=== PATIENT | female | born 1955 | race Caucasian/White ===

== ENCOUNTER 2019-03-13 14:53 | Observation (INO) | payer BC ==
[2019-03-13] MEDS ORDERED: SODIUM CHLORIDE 0.9% 500 ML 500 ML IV STA (15:08)
--- NOTE | 2019-03-13 15:19 | ED ---
General Adult HPI - General Chief complaint: Neuro Symptoms/Deficit Stated complaint: neuro deficit Time Seen by Provider: 03/13/19 15:00 Source: patient, RN notes reviewed, old records reviewed Mode of arrival: ambulatory Limitations: no limitations - History of Present Illness Initial comments: This is a 63-year-old female who presents to the emergency department stating while in her doctor's office she started having slurred speech and right arm we akness per patient states the symptoms lasted for 5 minutes and then seemed to resolve completely. Patient denies ever having similar symptoms in the past. Patient does state she has a past history of high blood pressure and high cholesterol and she is also a current smoker. Patient states she was at the office because she was being seen for a recent cough which has slightly improved over the last couple of days. Patient states she has had no fever today but she did have a fever. Days ago. Patient denies any chest pain or palpitations. Patient denies any shortness of breath currently. Patient denies any abdominal pain patient denies any nausea vomiting diarrhea. Patient denies light headedness or dizziness. - Related Data Home Medications Medication Instructions Recorded Confirmed Acetaminophen Tab [Tylenol Tab] 1,000 mg PO Q6H PRN 03/13/19 03/13/19 Estrogens, Conjugated [Premarin] 0.625 mg PO DAILY 03/13/19 03/13/19 Loratadine [Claritin] 10 mg PO HS PRN 03/13/19 03/13/19 Metoprolol Succinate [Toprol XL] 50 mg PO DAILY 03/13/19 03/13/19 Rosuvastatin Calcium [Crestor] 10 mg PO DAILY 03/13/19 03/13/19 Simethicone [Gas-X] 125 mg PO DAILY 03/13/19 03/13/19 Sucraid 8500unit/Ml 17,000 unit PO AC-BID PRN 03/13/19 03/13/19 Sucraid 8500unit/Ml 17,000 unit PO ACHS 03/13/19 03/13/19 Allergies Allergy/AdvReac Type Severity Reaction Status Date / Time No Known Allergies Allergy Verified 03/13/19 16:16 Review of Systems ROS Statement: Those systems with pertinent positive or pertinent negative responses have been documented in the HPI. ROS Other: All systems not noted in ROS Statement are negative. Past Medical History Past Medical History: COPD, Hyperlipidemia, Hypertension History of Any Multi-Drug Resistant Organisms: None Reported Additional Past Surgical History / Comment(s): neck fusion Past Psychological History: No Psychological Hx Reported Smoking Status: Current every day smoker Past Alcohol Use History: Occasional Past Drug Use History: None Reported General Exam - General Exam Comments Initial Comments: GENERAL: Patient is well-developed and well-nourished. Patient is nontoxic and well- hydrated and is in no acute distress ENT: Neck is soft and supple. No significant lymphadenopathy is noted. Oropharynx is clear. Moist mucous membranes. Neck has full range of motion without eliciting any pain. EYES: The sclera were anicteric and conjunctiva were pink and moist. Extraocular movements were intact and pupils were equal round and reactive to light. Eyelids were unremarkable. PULMONARY: Unlabored respirations. Good breath sounds bilaterally. No audible rales rhonchi or wheezing was noted. CARDIOVASCULAR: There is a regular rate and rhythm without any murmurs gallops or rubs. Femoral pulses are equal bilaterally ABDOMEN: Soft and nontender with normal bowel sounds. No palpable organomegaly was noted. There is no palpable pulsatile mass. SKIN: Skin is clear with no lesions or rashes and otherwise unremarkable. NEUROLOGIC: Patient is alert and oriented x3. Cranial nerves II through XII are grossly intact. Motor and sensory are also intact. Normal speech, volume and content. Symmetrical smile. Patient has an NIH is 0 MUSCULOSKELETAL: Normal extremities with adequate strength and full range of motion. No lower extremity swelling or edema. No calf tenderness. LYMPHATICS: No significant lymphadenopathy is noted PSYCHIATRIC: Normal psychiatric evaluation. Limitations: no limitations Course Vital Signs 03/13/19 14:57 Temperature 98.4 F Pulse Rate 64 Respiratory 18 Rate Blood Pressure 182/94 O2 Sat by Pulse 97 Oximetry Medical Decision Making - Medical Decision Making EKG shows a normal sinus rhythm at 63 bpm MD interval 114 QRS is 84 QT interval 440 QTC is 450. Patient's EKG shows no ST segment elevation or depression or T wave abnormalities are noted. CT of the brain shows postsurgical changes but no acute findings noted. CT angiogram of the head and neck show no acute changes. Chest x-ray shows no changes. Patient has had no symptoms well in the emergency department. I spoke with the [facility] hospitalist and they agreed to admit the patient admitted the patient I wrote admitting orders. - Lab Data Result diagrams: 03/13/19 15:26 03/13/19 15:26 Lab Results 03/13/19 03/13/19 03/13/19 Range/Units 15:26 15:26 15:26 WBC 7.8 (3.8-10.6) k/uL RBC 4.60 (3.80-5.40) m/uL Hgb 15.1 (11.4-16.0) gm/dL Hct 43.8 (34.0-46.0) % MCV 95.2 (80.0-100.0) fL MCH 32.8 (25.0-35.0) pg MCHC 34.4 (31.0-37.0) g/dL RDW 13.0 (11.5-15.5) % Plt Count 166 (150-450) k/uL Neutrophils % (Manual) 67 % Lymphocytes % (Manual) 29 % Monocytes % (Manual) 4 % Neutrophils # (Manual) 5.23 (1.3-7.7) k/uL Lymphocytes # (Manual) 2.26 (1.0-4.8) k/uL Monocytes # (Manual) 0.31 (0-1.0) k/uL Nucleated RBCs 0 (0-0) /100 WBC Manual Slide Review Performed PT 9.4 (9.0-12.0) sec INR 0.9 (<1.2) APTT 24.1 (22.0-30.0) sec Sodium 138 (137-145) mmol/L Potassium 4.1 (3.5-5.1) mmol/L Chloride 108 H (98-107) mmol/L Carbon Dioxide 24 (22-30) mmol/L Anion Gap 6 mmol/L BUN 12 (7-17) mg/dL Creatinine 0.73 (0.52-1.04) mg/dL Est GFR (CKD-EPI)AfAm >90 (>60 ml/min/1.73 sqM) Est GFR (CKD-EPI)NonAf 89 (>60 ml/min/1.73 sqM) Glucose 93 (74-99) mg/dL Calcium 8.9 (8.4-10.2) mg/dL Total Bilirubin 0.4 (0.2-1.3) mg/dL AST 21 (14-36) U/L ALT 22 (9-52) U/L Alkaline Phosphatase 82 (38-126) U/L Troponin I (0.000-0.034) ng/mL Total Protein 6.9 (6.3-8.2) g/dL Albumin 4.0 (3.5-5.0) g/dL 03/13/19 Range/Units 15:26 WBC (3.8-10.6) k/uL RBC (3.80-5.40) m/uL Hgb (11.4-16.0) gm/dL Hct (34.0-46.0) % MCV (80.0-100.0) fL MCH (25.0-35.0) pg MCHC (31.0-37.0) g/dL RDW (11.5-15.5) % Plt Count (150-450) k/uL Neutrophils % (Manual) % Lymphocytes % (Manual) % Monocytes % (Manual) % Neutrophils # (Manual) (1.3-7.7) k/uL Lymphocytes # (Manual) (1.0-4.8) k/uL Monocytes # (Manual) (0-1.0) k/uL Nucleated RBCs (0-0) /100 WBC Manual Slide Review PT (9.0-12.0) sec INR (<1.2) APTT (22.0-30.0) sec Sodium (137-145) mmol/L Potassium (3.5-5.1) mmol/L Chloride (98-107) mmol/L Carbon Dioxide (22-30) mmol/L Anion Gap mmol/L BUN (7-17) mg/dL Creatinine (0.52-1.04) mg/dL Est GFR (CKD-EPI)AfAm (>60 ml/min/1.73 sqM) Est GFR (CKD-EPI)NonAf (>60 ml/min/1.73 sqM) Glucose (74-99) mg/dL Calcium (8.4-10.2) mg/dL Total Bilirubin (0.2-1.3) mg/dL AST (14-36) U/L ALT (9-52) U/L Alkaline Phosphatase (38-126) U/L Troponin I <0.012 (0.000-0.034) ng/mL Total Protein (6.3-8.2) g/dL Albumin (3.5-5.0) g/dL Disposition Clinical Impression: Transient cerebral ischemia Disposition: ADMITTED IP TO THIS HOSP Referrals: Harika Cortez MD [Primary Care Provider] - 1-2 days Time of Disposition: 16:38
[2019-03-13 15:53] LABS: HCT 43.8 % (34.0-46.0); HGB 15.1 gm/dL (11.4-16.0); MCH 32.8 pg (25.0-35.0); MCHC 34.4 g/dL (31.0-37.0); MCV 95.2 fL (80.0-100.0); Mean Platelet Volume 7.5; Platelet Count 166 k/uL (150-450); WBC 7.8 k/uL (3.8-10.6)
[2019-03-13 15:57] LABS: ALT 22 U/L (9-52); AST 21 U/L (14-36); African American GFR (CKD) >90 (>60 ml/min/1.73 sqM); Alkaline Phosphatase 82 U/L (38-126); Anion Gap 6 mmol/L; Blood Urea Nitrogen 12 mg/dL (7-17); Calcium 8.9 mg/dL (8.4-10.2); Carbon Dioxide 24 mmol/L (22-30); Chloride 108 mmol/L (98-107); Glucose 93 mg/dL (74-99); Potassium 4.1 mmol/L (3.5-5.1); Sodium 138 mmol/L (137-145); Total Bilirubin 0.4 mg/dL (0.2-1.3); Total Protein 6.9 g/dL (6.3-8.2)
[2019-03-13 15:58] LABS: INR 0.9 (<1.2); Partial Thromboplastin Time 24.1 sec (22.0-30.0); Prothrombin Time 9.4 sec (9.0-12.0)
--- NOTE | 2019-03-13 16:03 | XR ---
EXAMINATION TYPE: XR chest 2V DATE OF EXAM: 03/13/2019 COMPARISON: 02/24/2016 HISTORY: Shortness of breath TECHNIQUE: Frontal and lateral views of the chest are obtained. FINDINGS: Scattered senescent parenchymal changes noted. Hyperinflation compatible with COPD. No evidence for infiltrate. No evidence for atelectasis. Heart size is stable. Mediastinal structures are stable and grossly unremarkable. No evidence for hilar prominence. Degenerative changes dorsal spine. IMPRESSION: 1. No evidence for acute pulmonary disease.
--- NOTE | 2019-03-13 16:09 | CT ---
EXAMINATION TYPE: CT brain wo con DATE OF EXAM: 03/13/2019 COMPARISON: None HISTORY: Right side weakness. History of known brain tumors CT DLP: [address] of the brain was performed. The ventricles, basal cisterns and sulci overlying the cerebral convexities demonstrate mild enlargem ent. There is no evidence for intracranial hemorrhage or sulcal effacement. There is decreased attenuation about the periventricular white matter and deep white matter of both c erebral hemispheres, compatible with chronic small vessel ischemia. Differential diagnosis does inclu de demyelination. As the operative encephalomalacia right cerebellum. Partially calcified mass is noted in the region of the right occipital lobe measuring 1.6 x 1.6 cm. N oted are also calcified masses within the high bifrontal regions measuring about 1.1 cm on the left a nd 1.4 cm on the right. These may reflect meningiomas. Areas of prior a right frontal craniotomy as well as a right occipital craniotomy. If symptoms persist consider MRI. IMPRESSION: 1. Age related atrophic and chronic small vessel ischemic change without acute intracranial process s een at this time. 2. Postoperative craniotomy changes right frontal right occipital regions with postoperative encephal omalacia is seen within the region of the right cerebellum. 3. Calcified and partially calcified masses as discussed may reflect meningiomas. Masses of other mary ology not excluded.
[2019-03-13 16:10] LABS: Lymphocytes # (M) 2.26 k/uL (1.0-4.8); Monocytes # (M) 0.31 k/uL (0-1.0); Neutrophils % (M) 67 %; Nucleated Red Blood Cells 0 /100 WBC (0-0); Total Cells Counted 100
--- NOTE | 2019-03-13 16:29 | CT ---
EXAMINATION TYPE: CT angio head neck DATE OF EXAM: 03/13/2019 COMPARISON: None HISTORY: Right side weakness. History of known brain tumors CT DLP: 391.4 mGycm CONTRAST: Performed with IV Contrast, patient injected with 65 mL of Isovue 370. Combination Contrast CTA cervical carotids and [place] CTA cervical carotids with 3-D recons truction Contrast CTA of the cervical carotids was performed 3-D reconstruction imaging obtained at a separate workstation. Right carotid system: Mild plaque is seen of the right common carotid artery. There is mild plaque a lso noted at the carotid bulb and proximal ICA. No significant diameter reduction. ECA is patent. Right vertebral artery appears unremarkable. Left carotid system: Mild plaque is seen of the left common carotid artery. There is mild plaque als o noted at the carotid bulb and proximal ICA. No significant diameter reduction. ECA is patent. Lef t vertebral artery appears unremarkable. IMPRESSION: 1. No significant diameter reduction to account for the patient's symptoms. CTA [place] with 3-D reconstruction Contrast CTA of the [place] was performed 3-D reconstruction imaging obtained at a separate workstation. Vertebrobasilar system as well as intracranial portions of the internal carotid arteries and their ma erica tributaries are patent. I do not see evidence for sizable aneurysm or vascular malformation. Pl ease note MRI provides greater sensitivity and specificity. Visualized brain appears grossly unremar kable. IMPRESSION: 1. No siginificant abnormality.
[2019-03-13] MEDS: ASPIRIN 325 MG TAB PO STA ×2 (17:06)
[2019-03-13 18:35] VITALS: BMI 21.4
[2019-03-13] MEDS ORDERED: ACETAMINOPHEN TAB 500 MG TAB PO PRN (20:27)
[2019-03-13] MEDS ORDERED: LORATADINE 10 MG TAB PO PRN (20:27)
[2019-03-14 01:10] VITALS: RESP 16
[2019-03-14 06:29] LABS: Cholesterol 146 mg/dL (<200); HDL Cholesterol 42 mg/dL (40-60); LDL Cholesterol,Calculated 75 mg/dL (0-99); Triglycerides 143 mg/dL (<150)
[2019-03-14] MEDS ORDERED: METOPROLOL SUCCINATE (ER) 50 MG TAB.ER.24H PO SCH (09:00)
[2019-03-14] MEDS ORDERED: NICOTINE 14MG/24HR PATCH TRANSDERM SCH (09:00)
[2019-03-14] MEDS ORDERED: predniSONE 20 MG TAB PO SCH (09:45)
[2019-03-14 11:52] VITALS: TEMP 96.8
--- NOTE | 2019-03-14 12:10 | P.CNNES ---
History of Present Illness Consult date: 03/14/19 Requesting physician: Elroy Orlando Reason for Consult: TIA History of Present Illness: Patient is a 63-year-old female with history of hypertension, hyperlipidemia, tobacco use, states that she went to her doctor's office for cold. She underwent breathing treatment. Once it was done, she was paying the bills, when suddenly her right arm became weak, would not work. Her tongue felt swollen, she felt dizzy lightheaded like will pass out. She couldn't talk. Patient states that she couldn't walk and legs felt limp. Patient sat down and the symptoms started improving. The symptoms lasted for about 5-10 minutes. Patient was brought to the hospital. Her blood pressure on arrival was 182/94, pulse rate 64, temperature 98.4. Patient underwent computed tomography scan of the head, which revealed age-related atrophic and chronic small vessel ischemic change, without acute intracranial process. Postoperative craniotomy changes right frontal, right occipital region with postoperative encephalomalacia seen within the region of the right cerebellum. CTA of head was negative. CT of the neck showed no si gnificant diameter reduction took on for the patient's symptoms. There is mild plaque noted at the carotid bulb and proximal ICA bilaterally. Chest x-ray showed no acute cardiopulmonary disease. EKG showed normal sinus rhythm. Blood test shows cholesterol 146, LDL 75, HDL 42 and triglycerides 143. Patient has history of hypertension since 2007, hyperlipidemia, smoker for one pack per day for 36 years. Denies diabetes. No family history of strokes although mother had SD. Patient states that she does not take any antiplatelet medication at home. Several years ago she tried a full aspirin, which produces gastric intolerance. She went down to 81 mg but even then she could not tolerate. Patient also mentions that she has history of meningioma resection twice, once from the posterior fossa in 2002 and the cervical region 2014 after which she had cervical fusion. Review of Systems Unremarkable. Denies shortness of breath. She does have some wheezing. Denies any chest pain. Denies double vision or loss of vision. Patient denies any facial droop with this event. All other review of systems unremarkable Past Medical History Past Medical History: COPD, Hyperlipidemia, Hypertension History of Any Multi-Drug Resistant Organisms: None Reported Additional Past Surgical History / Comment(s): neck fusion, craniotomy 2002,2003 Past Anesthesia/Blood Transfusion Reactions: No Reported Reaction Past Psychological History: No Psychological Hx Reported Smoking Status: Current every day smoker Past Alcohol Use History: Occasional Past Drug Use History: None Reported - Past Family History Father Family Medical History: Coronary Artery Disease (CAD), Deep Vein Thrombosis (DVT), Hyperlipidemia Mother Family Medical History: Coronary Artery Disease (CAD), Hyperlipidemia, Hypertension Medications and Allergies Home Medications Medication Instructions Recorded Confirmed Type Acetaminophen Tab [Tylenol] 1,000 mg PO Q6H PRN 03/13/19 03/13/19 History Loratadine [Claritin] 10 mg PO HS PRN 03/13/19 03/13/19 History Metoprolol Succinate [Toprol XL] 50 mg PO DAILY 03/13/19 03/13/19 History Rosuvastatin Calcium [Crestor] 10 mg PO DAILY 03/13/19 03/13/19 History Simethicone [Gas-X] 125 mg PO DAILY 03/13/19 03/13/19 History Sucraid 8500unit/Ml 17,000 unit PO AC-BID PRN 03/13/19 03/13/19 History Sucraid 8500unit/Ml 17,000 unit PO ACHS 03/13/19 03/13/19 History Clopidogrel Bisulfate [Plavix] 75 mg PO DAILY #30 tab 03/14/19 Rx Allergies Allergy/AdvReac Type Severity Reaction Status Date / Time No Known Allergies Allergy Verified 03/13/19 16:16 Physical Examination - Vital Signs Vital Signs: Vital Signs Temp Pulse Pulse Resp BP BP Pulse Ox 03/14/19 04:00 97.8 F 63 16 160/85 94 L 03/14/19 00:00 98.2 F 61 16 150/92 95 03/13/19 20:00 98.2 F 60 18 124/88 96 03/13/19 17:20 97.1 F L 63 150/71 96 03/13/19 16:00 69 16 159/98 94 L 03/13/19 15:00 66 14 182/94 96 03/13/19 14:57 98.4 F 64 18 182/94 97 Intake and Output 03/13/19 03/14/19 03/14/19 22:59 06:59 14:59 Intake Total 236 240 240 Output Total 400 Balance 236 240 -160 Intake: Oral 236 240 240 Output: Urine 400 Other: Voiding Method Toilet Toilet # Voids 1 1 Weight 61.8 kg On examination patient is a late middle aged female, in no distress. Patient is alert awake oriented to time place and person. Speech and language functions are normal. Her voice is slightly hoarse. On cranial nerve examination, pupils are round and reacting to light, visual thompson are full, except muscles are intact. Face is symmetric and tongue protrudes the midline. Palatal elevation and sensation normal. On muscle strength testing there is no pronator drift and the strength is normal in arms and legs distally and proximally. No obvious ataxia for [id number] although still she is slightly slow on the left. Tone and bulk of muscles normal. Reflexes are symmetric and plantars downgoing. Results - Laboratory Findings CBC and BMP: 03/13/19 15:26 03/13/19 15:26 Abnormal Lab Findings: Abnormal Labs 03/13/19 15:26 Chloride 108 H Assessment and Plan Assessment: * 63-year-old female admitted with possible TIA, manifesting with right arm and leg weakness, with some involuntary movement of the right arm, and dysphasia, that lasted for about 10 minutes. * Hypertension * Dyslipidemia, controlled on Crestor. * Tobacco user 36 pack years * History of craniotomy for meningioma resection Plan: Patient is intolerant to aspirin. She cannot even take a baby aspirin. We will start her on Plavix 75 mg daily for stroke prevention. Continue Crestor. 2-D echo has been completed, the results are still pending at the time of this dictation. EEG was performed, due to her history of meningioma to rule out any epileptiform activity. It was normal. Patient apparently on HRT with Premarin. Premarin does increase risk of strokes and heart attacks. I would suggest stopping or decreasing the dose of Premarin. Patient states that she has had hysterectomy at age 23 and has been on HRT since then. She will discuss with her primary physician about this concern. If the above tests come back negative, then clear for discharge.
--- NOTE | 2019-03-14 13:17 | P.HPIM ---
History of Present Illness Patient is a pleasant 63-year-old female came in with complaints of weakness in the right arm at the doctor's office and all of a sudden stopped working which only lasted for 5 minutes patient denied any tingling numbness facial weakness patient the denied any speech problems patient also felt like her she has weakness in the left leg. Patient denied any fever chills patient doesn't have any weakness at this time. Patient had a CT angios the neck which was negative CT of the head did not show any significant abnormality. Patient does smoke, patient does have laryngitis because of which she visited the PCPs office patient was given prescription for prednisone and azithromycin which she didn't take any of them yet. Patient does have minimal expiratory wheezing on exam. Patient's LDL is 75 patient is on rosuvastatin. Patient was evaluated by neurology in the recommending EEG and echocardiogram. By clinical suspicion of for TIA or stroke is extremely low. Patient did not tolerate aspirin in the past because of which patient will start started on Plavix patient had a meningioma resection twice in the past. Review of Systems REVIEW OF SYSTEMS: CONSTITUTIONAL: No fever, no malaise, no fatigue. HEENT: No recent visual problems or hearing problems. Denied any sore throat. CARDIOVASCULAR: No chest pain, orthopnea, PND, no palpitations, no syncope. PULMONARY: No shortness of breath, no cough, no hemoptysis. GASTROINTESTINAL: No diarrhea, no nausea, no vomiting, no abdominal pain. NEUROLOGICAL: As mentioned above HEMATOLOGICAL: Denies any bleeding or petechiae. GENITOURINARY: Denies any burning micturition, frequency, or urgency. MUSCULOSKELETAL/RHEUMATOLOGICAL: Denies any joint pain, swelling, or any muscle pain. ENDOCRINE: Denies any polyuria or polydipsia. The rest of the 14-point review of systems is negative. Past Medical History Past Medical History: COPD, Hyperlipidemia, Hypertension History of Any Multi-Drug Resistant Organisms: None Reported Additional Past Surgical History / Comment(s): neck fusion, craniotomy 2002,2003 Past Anesthesia/Blood Transfusion Reactions: No Reported Reaction Past Psychological History: No Psychological Hx Reported Smoking Status: Current every day smoker Past Alcohol Use History: Occasional Past Drug Use History: None Reported - Past Family History Father Family Medical History: Coronary Artery Disease (CAD), Deep Vein Thrombosis (DVT), Hyperlipidemia Mother Family Medical History: Coronary Artery Disease (CAD), Hyperlipidemia, Hypertension Medications and Allergies Home Medications Medication Instructions Recorded Confirmed Type Acetaminophen Tab [Tylenol] 1,000 mg PO Q6H PRN 03/13/19 03/13/19 History Loratadine [Claritin] 10 mg PO HS PRN 03/13/19 03/13/19 History Metoprolol Succinate [Toprol XL] 50 mg PO DAILY 03/13/19 03/13/19 History Rosuvastatin Calcium [Crestor] 10 mg PO DAILY 03/13/19 03/13/19 History Simethicone [Gas-X] 125 mg PO DAILY 03/13/19 03/13/19 History Sucraid 8500unit/Ml 17,000 unit PO AC-BID PRN 03/13/19 03/13/19 History Sucraid 8500unit/Ml 17,000 unit PO ACHS 03/13/19 03/13/19 History Clopidogrel Bisulfate [Plavix] 75 mg PO DAILY #30 tab 03/14/19 Rx Allergies Allergy/AdvReac Type Severity Reaction Status Date / Time No Known Allergies Allergy Verified 03/13/19 16:16 Physical Exam Vitals: Vital Signs Temp Pulse Pulse Resp BP BP Pulse Ox 03/14/19 08:00 96.8 F L 65 155/92 94 L 03/14/19 04:00 97.8 F 63 16 160/85 94 L 03/14/19 00:00 98.2 F 61 16 150/92 95 03/13/19 20:00 98.2 F 60 18 124/88 96 03/13/19 17:20 97.1 F L 63 150/71 96 03/13/19 16:00 69 16 159/98 94 L 03/13/19 15:00 66 14 182/94 96 03/13/19 14:57 98.4 F 64 18 182/94 97 Intake and Output 03/13/19 03/14/19 03/14/19 22:59 06:59 14:59 Intake Total 236 240 480 Output Total 400 Balance 236 240 80 Intake: Oral 236 240 480 Output: Urine 400 Other: Voiding Method Toilet Toilet # Voids 1 1 Weight 61.8 kg PHYSICAL EXAMINATION: GENERAL: The patient is alert and oriented x3, not in any acute distress. Well developed, well nourished. HEENT: Pupils are round and equally reacting to light. EOMI. No scleral icterus. No conjunctival pallor. Normocephalic, atraumatic. No pharyngeal erythema. No thyromegaly. CARDIOVASCULAR: S1 and S2 present. No murmurs, rubs, or gallops. PULMONARY: Good air entry bilateral lung thompson minimal expiratory wheezing on exam ABDOMEN: Soft, nontender, nondistended, normoactive bowel sounds. No palpable organomegaly. MUSCULOSKELETAL: No joint swelling or deformity. EXTREMITIES: No cyanosis, clubbing, or pedal edema. NEUROLOGICAL: Gross neurological examination did not reveal any focal deficits. SKIN: No rashes. Results CBC & Chem 7: 03/13/19 15:26 03/13/19 15:26 Labs: Abnormal Lab Results - Last 24 Hours (Table) 03/13/19 Range/Units 15:26 Chloride 108 H (98-107) mmol/L Thrombosis Risk Factor Assmnt - Choose All That Apply Each Risk Factor Represents 2 Points: Age 61-74 years Thrombosis Risk Factor Assessment Total Risk Factor Score: 2 Thrombosis Risk Factor Assessment Level: Low Risk Assessment and Plan Plan: 1 possible right upper limb weakness I suspicion for TIA is low neurology evaluated the patient further management as mentioned above patient doesn't have any more weakness neurology is recommending EEG Plavix 100 mg continue with Crestor and a 2-D echocardiogram which were ordered. Results of which are pending. They're negative patient will be discharged today -Laryngitis mostly viral patient was started on prednisone can resume her antibiotics when she goes home -Hyperlipidemia for which patient on Crestor which will be continued -continued nicotine use: Counseling was provided -History of craniotomy with meningioma resection in the past -Hypertension -COPD with minimally acute exacerbation expected to improve with systemic steroids counseling regarding smoking cessation is provided
--- NOTE | 2019-03-14 13:44 | P.DS ---
Providers Date of admission: 03/13/19 16:41 Attending physician: Sherrie Hubbard Consults: 03/13/19 16:40 Consult Physician Routine Consulting Provider: Chiquita Martinez Consult Reason/Comments: TIA Do you want consulting provider notified?: Yes Primary care physician: Harika Cortez [facility] Course: Please of her dementia. For further details Plan - Discharge Summary Discharge Rx Participant: No New Discharge Prescriptions: New Clopidogrel Bisulfate [Plavix] 75 mg PO DAILY #30 tab Continue Loratadine [Claritin] 10 mg PO HS PRN PRN Reason: Allergy Symptoms Acetaminophen Tab [Tylenol] 1,000 mg PO Q6H PRN PRN Reason: Fever And/ Or Pain Simethicone [Gas-X] 125 mg PO DAILY Rosuvastatin Calcium [Crestor] 10 mg PO DAILY Metoprolol Succinate [Toprol XL] 50 mg PO DAILY Sucraid 8500unit/Ml 17,000 unit PO ACHS Sucraid 8500unit/Ml 17,000 unit PO AC-BID PRN PRN Reason: SNACKS Discontinued Estrogens, Conjugated [Premarin] 0.625 mg PO DAILY Discharge Medication List Acetaminophen Tab [Tylenol] 1,000 mg PO Q6H PRN 03/13/19 [History] Loratadine [Claritin] 10 mg PO HS PRN 03/13/19 [History] Metoprolol Succinate [Toprol XL] 50 mg PO DAILY 03/13/19 [History] Rosuvastatin Calcium [Crestor] 10 mg PO DAILY 03/13/19 [History] Simethicone [Gas-X] 125 mg PO DAILY 03/13/19 [History] Sucraid 8500unit/Ml 17,000 unit PO AC-BID PRN 03/13/19 [History] Sucraid 8500unit/Ml 17,000 unit PO ACHS 03/13/19 [History] Clopidogrel Bisulfate [Plavix] 75 mg PO DAILY #30 tab 03/14/19 [Rx] Follow up Appointment(s)/Referral(s): Harika Cortez MD [Primary Care Provider] - 03/20/19 10:00 am (Wednesday) Patient Instructions/Handouts: Transient Ischemic Attack (DC) Discharge Disposition: HOME SELF-CARE
[2019-03-14 14:27] VITALS: BP 154/73; PULSE 63
--- NOTE | 2019-03-14 14:29 | EEG ---
ELECTROENCEPHALOGRAM REPORT DATE OF SERVICE: 03/14/2019. PREAMBLE: This is a 63-year-old female who came with possible TIA. Patient has some involuntary movement of the right arm. Rule out any convulsive activity. Patient has history of meningioma resection in the past. EEG FINDINGS: A routine 21 channel awake digital EEG recording was accomplished utilizing the 10/20 international system with bipolar and referential montages. The background consists of well developed, well regulated, [id number] amplitude activity in 10 hertz alpha. Background is posterior dominant and reactive to eye opening and closing. Photic driving response was seen in at some flash frequencies. Hyperventilation was not performed. Different stages of sleep were not seen. No focal or generalized epileptiform activity was seen. EKG rhythm monitor on an 8 cm lead revealed no arrhythmia. IMPRESSION: This is a normal awake EEG. No focal lateralized or epileptiform activity was seen. MMODL / IJN: [id number] /
[2019-03-14] MEDS ORDERED: CLOPIDOGREL 75 MG TAB PO SCH (14:45)
[2019-03-14] MEDS ORDERED: ASPIRIN 325 MG TAB PO SCH (16:40)
[2019-03-15] MEDS ORDERED: ATORVASTATIN 20 MG TAB PO SCH (09:00)
--- NOTE | 2019-03-15 11:22 | ECHOF ---
Referral Reason:TIA MEASUREMENTS -------- HEIGHT: 170.2 cm WEIGHT: 61.7 kg BP: 160/85 IVSd: 1.2 cm (0.6 - 1.1) LVIDd: 5.5 cm (3.9 - 5.3) LVPWd: 1.3 cm (0.6 - 1.1) IVSs: 1.7 cm LVIDs: 3.6 cm LVPWs: 1.5 cm RVIDd: 3.8 cm (< 3.3) LAESV Index (A-L): 55.24 ml/m Ao Diam: 3.4 cm (2.0 - 3.7) LA Diam: 4.9 cm (2.7 - 3.8) AV Cusp: 1.6 cm (1.5 - 2.6) EPSS: 0.8 cm MV E Juan: 0.81 m/s MV DecT: 211 ms MV A Juan: 0.49 m/s MV E/A Ratio: 1.63 AR PHT: 724 ms RAP: 5.00 mmHg RVSP: 57.19 mmHg MV EF SLOPE: 101.45 mm/s (70 - 150) MV EXCURSION: 19.46 mm (> 18.000) FINDINGS -------- Sinus rhythm. This was a technically good study. The left ventricular size is normal. There is mild concentric left ventricular hypertrophy. Overa ll left ventricular systolic function is normal with, an EF between 55 - 60 %. Increased Lap Grade II Diastolic Dysfunction. The right ventricle is mildly enlarged. LA is severely dilated >40 ml/m2 The right atrium is moderately enlarged. Contrast study was performed with 3 iv injections of 8 ccs of agitated normal saline, at rest, with c ough and post-Valsalva maneuver. Interatrial and interventricular septum intact. The aortic valve is trileaflet and appears structurally normal. There is mild aortic valve sclerosi s. There is mild aortic regurgitation. There is no evidence of aortic stenosis. The mitral valve leaflets are moderately thickened. Mild mitral annular calcification present. Se danii mitral regurgitation is present. Moderate to severe tricuspid regurgitation present. There is moderate to severe pulmonary hypertens ion. The right ventricular systolic pressure, as measured by Doppler, is 57.19mmHg. Cannot rule o ut vegetation. Trace/mild (physiologic) pulmonic regurgitation. The aortic root size is normal. Normal inferior vena cava with normal inspiratory collapse consistent with estimated right atrial pre ssure of 5 mmHg. There is no pericardial effusion. CONCLUSIONS -------- 1. Sinus rhythm. 2. This was a technically good study. 3. The left ventricular size is normal. 4. There is mild concentric left ventricular hypertrophy. 5. Overall left ventricular systolic function is normal with, an EF between 55 - 60 %. 6. Increased Lap Grade II Diastolic Dysfunction. 7. The right ventricle is mildly enlarged. 8. LA is severely dilated >40 ml/m2 9. The right atrium is moderately enlarged. 10. Contrast study was performed with 3 iv injections of 8 ccs of agitated normal saline, at rest, wi th cough and post-Valsalva maneuver. 11. Interatrial and interventricular septum intact. 12. The aortic valve is trileaflet and appears structurally normal. 13. There is mild aortic valve sclerosis. 14. There is mild aortic regurgitation. 15. There is no evidence of aortic stenosis. 16. The mitral valve leaflets are moderately thickened. 17. Mild mitral annular calcification present. 18. Severe mitral regurgitation is present. 19. Moderate to severe tricuspid regurgitation present. 20. There is moderate to severe pulmonary hypertension. 21. The right ventricular systolic pressure, as measured by Doppler, is 57.19mmHg. 22. Cannot rule out vegetation. 23. Trace/mild (physiologic) pulmonic regurgitation. 24. The aortic root size is normal. 25. Normal inferior vena cava with normal inspiratory collapse consistent with estimated right atrial pressure of 5 mmHg. 26. There is no pericardial effusion. RETAIL ATTENDANT: Sherri Greene RDCS
--- NOTE | 2019-03-17 16:11 | P.PN ---
Progress Note - Text Progress Note Date: 03/17/19 Telephone call documentation: Patient's 2-D echo report was pending at the time of discharge. I looked at the 2-D echo report. It shows severe mitral regurgitation. Moderate to severe tricuspid regurgitation. Moderate to severe pulmonary hypertension. EF is normal 55-60%. Left atrium is severely dilated. The right atrium is moderately enlarged. Interatrial and interventricular septum intact with agitated saline. The right ventricular systolic pressure is 57.19 mm. Cannot rule out vegetation. Spoke to the patient on phone. She states she is doing fine. She is taking Plavix. Patient has an appointment with her primary doctor Dr Cortez on 03/20/2019 and with her carbonating stone cleaner Dr. Ramirez on 03/28/2019. Spoke to Dr. Haydee Balderas about the patient. He states that he will be speaking to the patient, asking her to return to the hospital for possible CLEO.
== END 2019-03-14 16:13 | disposition home or self-care (01) ==
LOC: EC 14:53 → 3SCARD 16:41
PROVIDERS: ADMIT Internal Medicine; ATTEND Internal Medicine
DX: R53.1 Weakness (principal); R25.9 Unspecified abnormal involuntary movements; R47.02 Dysphasia; J04.0 Acute laryngitis; E78.5 Hyperlipidemia, unspecified; I10 Essential (primary) hypertension; J44.1 Chronic obstructive pulmonary disease with (acute) exacerbation; G93.89 Other specified disorders of brain; I27.20 Pulmonary hypertension, unspecified; I08.1 Rheumatic disorders of both mitral and tricuspid valves; E78.00 Pure hypercholesterolemia, unspecified; F03.90 Unspecified dementia, unspecified severity, without behavioral disturbance, psychotic disturbance, mood disturbance, and anxiety; F17.210 Nicotine dependence, cigarettes, uncomplicated; Z79.899 Other long term (current) drug therapy; Z79.890 Hormone replacement therapy; Z79.02 Long term (current) use of antithrombotics/antiplatelets; Z86.011 Personal history of benign neoplasm of the brain; Z90.710 Acquired absence of both cervix and uterus; Z98.1 Arthrodesis status; Z98.890 Other specified postprocedural states; Z82.49 Family history of ischemic heart disease and other diseases of the circulatory system
CPT/HCPCS: 96361; 96360; 99285; 36415; 95816; 93005; 93306; 97161; 97165; 92523; 80061; 80053; 84484; 85025; 85610; 85730; 71046; 70496; 70450; 70498; G0378 ×2; J7512; Q9967

== ENCOUNTER 2019-03-18 10:49 | Emergency (ER) | payer BC, MEDICARE ==
--- NOTE | 2019-03-18 13:02 | ED ---
General Adult HPI - General Chief complaint: Recheck/Abnormal Lab/Rx Stated complaint: heart concerns Time Seen by Provider: 03/18/19 11:06 Source: patient, RN notes reviewed Mode of arrival: ambulatory Limitations: no limitations - History of Present Illness Initial comments: This is a 61-year-old female who was recently admitted for TIA workup who states she was instructed to come back to the hospital today for further testing for a possible abnormality on echocardiogram. Patient states that since her discharge from the hospital she's had no new symptoms no dizziness headache lightheadedness blurry vision nausea vomiting sweats chest pain or other symptoms she does have a cold that she's fighting she states her modifying factors she is a smoker and states she's try to cut back. - Related Data Home Medications Medication Instructions Recorded Confirmed Acetaminophen Tab [Tylenol] 1,000 mg PO Q6H PRN 03/13/19 03/13/19 Loratadine [Claritin] 10 mg PO HS PRN 03/13/19 03/13/19 Metoprolol Succinate [Toprol XL] 50 mg PO DAILY 03/13/19 03/13/19 Rosuvastatin Calcium [Crestor] 10 mg PO DAILY 03/13/19 03/13/19 Simethicone [Gas-X] 125 mg PO DAILY 03/13/19 03/13/19 Sucraid 8500unit/Ml 17,000 unit PO AC-BID PRN 03/13/19 03/13/19 Sucraid 8500unit/Ml 17,000 unit PO ACHS 03/13/19 03/13/19 Previous Rx's Medication Instructions Recorded Clopidogrel Bisulfate [Plavix] 75 mg PO DAILY #30 tab 03/14/19 Allergies Allergy/AdvReac Type Severity Reaction Status Date / Time No Known Allergies Allergy Verified 03/18/19 10:56 Review of Systems ROS Statement: Those systems with pertinent positive or pertinent negative responses have been documented in the HPI. ROS Other: All systems not noted in ROS Statement are negative. Past Medical History Past Medical History: COPD, Hyperlipidemia, Hypertension History of Any Multi-Drug Resistant Organisms: None Reported Additional Past Surgical History / Comment(s): neck fusion, craniotomy 2002,2003 Past Anesthesia/Blood Transfusion Reactions: No Reported Reaction Past Psychological History: No Psychological Hx Reported Smoking Status: Current every day smoker Past Alcohol Use History: Occasional Past Drug Use History: None Reported - Past Family History Father Family Medical History: Coronary Artery Disease (CAD), Deep Vein Thrombosis (DVT), Hyperlipidemia Mother Family Medical History: Coronary Artery Disease (CAD), Hyperlipidemia, Hypertension General Exam - General Exam Comments Initial Comments: Is a well-developed well-nourished awake alert oriented 3 female Limitations: no limitations General appearance: alert, in no apparent distress Head exam: Present: atraumatic, normocephalic, normal inspection Eye exam: Present: normal appearance, PERRL, EOMI. Absent: scleral icterus, conjunctival injection, periorbital swelling ENT exam: Present: normal exam, mucous membranes moist Neck exam: Present: normal inspection. Absent: tenderness, meningismus, lymphadenopathy Respiratory exam: Present: normal lung sounds bilaterally. Absent: respiratory distress, wheezes, rales, rhonchi, stridor Cardiovascular Exam: Present: regular rate, normal rhythm, normal heart sounds. Absent: systolic murmur, diastolic murmur, rubs, gallop, clicks GI/Abdominal exam: Present: soft, normal bowel sounds. Absent: distended, tenderness, guarding, rebound, rigid Extremities exam: Present: normal inspection, full ROM, normal capillary refill. Absent: tenderness, pedal edema, joint swelling, calf tenderness Back exam: Present: normal inspection Neurological exam: Present: alert, oriented X3, CN II-XII intact Psychiatric exam: Present: normal affect, normal mood Skin exam: Present: warm, dry, intact, normal color. Absent: rash Course Vital Signs 03/18/19 03/18/19 10:54 12:18 Temperature 98.3 F Pulse Rate 81 65 Respiratory 18 16 Rate Blood Pressure 159/87 163/92 O2 Sat by Pulse 93 L 97 Oximetry - Reevaluation(s) Reevaluation #1: 03/18/19 12:57 I did discuss the case with Dr. Adam at this time no notification of any advanced testing is apparent Reevaluation #2: 03/18/19 13:01 Did review the last admission including the echocardiogram. This was discussed with Dr. Adam Medical Decision Making - Medical Decision Making I did discuss the findings in case with the patient extensively due to the patient's presentation with no further symptoms she is selected to go home with keep her follow-up with her doctor on Wednesday today being Wednesday has she has planned and to contact cardiology. Disposition Clinical Impression: Smoking, Condition not found Disposition: HOME SELF-CARE Condition: Good Instructions (If sedation given, give patient instructions): How to Stop Smoking (ED) Additional Instructions: Keep her follow-up with Dr. Cortez as planned. Call Dr. Gomez as directed Is patient prescribed a controlled substance at d/c from ED?: No Referrals: Harika Cortez MD [Primary Care Provider] - 1-2 days
[2019-03-18 13:22] VITALS: BP 169/87; PULSE 63; RESP 18; TEMP 98
== END 2019-03-18 13:20 | disposition home or self-care (01) ==
LOC: EC 10:49
DX: Z13.6 Encounter for screening for cardiovascular disorders (principal); E78.5 Hyperlipidemia, unspecified; I10 Essential (primary) hypertension; F17.200 Nicotine dependence, unspecified, uncomplicated; Z79.899 Other long term (current) drug therapy; Z82.49 Family history of ischemic heart disease and other diseases of the circulatory system
CPT/HCPCS: 93005; 99283

== ENCOUNTER 2019-03-20 12:56 | Inpatient (IN) | payer MEDICARE, BC ==
--- NOTE | 2019-03-20 14:05 | ED ---
General Adult HPI - General Chief complaint: Recheck/Abnormal Lab/Rx Stated complaint: Abnormal echo Time Seen by Provider: 03/20/19 13:46 Source: patient, RN notes reviewed Mode of arrival: ambulatory Limitations: no limitations - History of Present Illness Initial comments: Patient is a pleasant 63-year-old female presenting to the emergency Department with reports of possible abnormal echo. Patient was in the hospital last week with TIA. Patient has been doing fine since then other than some fatigue. Patient did receive a call from somebody saying they wanted to do another test however when she returned on Wednesday as directed she could not find the chest. Patient did follow-up with her doctor today who did some research regarding abnormal echo and advised her to come back into the hospital. Patient denies any fevers. Patient denies any IV drug use. - Related Data Home Medications Medication Instructions Recorded Confirmed Acetaminophen Tab [Tylenol] 1,000 mg PO Q6H PRN 03/13/19 03/13/19 Loratadine [Claritin] 10 mg PO HS PRN 03/13/19 03/13/19 Metoprolol Succinate [Toprol XL] 50 mg PO DAILY 03/13/19 03/13/19 Rosuvastatin Calcium [Crestor] 10 mg PO DAILY 03/13/19 03/13/19 Simethicone [Gas-X] 125 mg PO DAILY 03/13/19 03/13/19 Sucraid 8500unit/Ml 17,000 unit PO AC-BID PRN 03/13/19 03/13/19 Sucraid 8500unit/Ml 17,000 unit PO ACHS 03/13/19 03/13/19 Previous Rx's Medication Instructions Recorded Clopidogrel Bisulfate [Plavix] 75 mg PO DAILY #30 tab 03/14/19 Allergies Allergy/AdvReac Type Severity Reaction Status Date / Time No Known Allergies Allergy Verified 03/20/19 13:09 Review of Systems ROS Statement: Those systems with pertinent positive or pertinent negative responses have been documented in the HPI. ROS Other: All systems not noted in ROS Statement are negative. Constitutional: Denies: fever, chills Eyes: Denies: eye pain ENT: Denies: ear pain Respiratory: Reports: cough (Mild nonproductive). Denies: dyspnea Cardiovascular: Denies: chest pain Endocrine: Denies: fatigue Gastrointestinal: Denies: abdominal pain Genitourinary: Denies: dysuria Musculoskeletal: Denies: back pain Skin: Denies: rash Neurological: Denies: weakness Past Medical History Past Medical History: COPD, CVA/TIA, Hyperlipidemia, Hypertension History of Any Multi-Drug Resistant Organisms: None Reported Additional Past Surgical History / Comment(s): neck fusion, craniotomy 2002,2003 Past Anesthesia/Blood Transfusion Reactions: No Reported Reaction Past Psychological History: No Psychological Hx Reported Smoking Status: Current every day smoker Past Alcohol Use History: Occasional Past Drug Use History: None Reported - Past Family History Father Family Medical History: Coronary Artery Disease (CAD), Deep Vein Thrombosis (DVT), Hyperlipidemia Mother Family Medical History: Coronary Artery Disease (CAD), Hyperlipidemia, Hypertension General Exam Limitations: no limitations General appearance: alert, in no apparent distress Head exam: Present: normocephalic Eye exam: Present: normal appearance, PERRL ENT exam: Present: normal oropharynx Neck exam: Present: normal inspection Respiratory exam: Present: normal lung sounds bilaterally Cardiovascular Exam: Present: regular rate, normal rhythm GI/Abdominal exam: Present: soft. Absent: tenderness Extremities exam: Present: normal inspection. Absent: pedal edema, calf tenderness Neurological exam: Present: alert Psychiatric exam: Present: normal affect, normal mood Skin exam: Present: normal color Course Vital Signs 03/20/19 03/20/19 03/20/19 13:09 14:40 15:15 Temperature 98 F Pulse Rate 66 57 L 54 L Respiratory 18 18 18 Rate Blood Pressure 188/90 176/97 160/93 O2 Sat by Pulse 95 98 98 Oximetry EKG Findings - EKG Comments: EKG Findings:: Sinus bradycardia 57. AR 110. QRS 86. QT 442. QTC 4:30. Normal axis. Q wave in lead V1 and V2. No acute ST change. Medical Decision Making - Medical Decision Making Patient reevaluated and updated. Case was discussed in detail with Dr. Carty, who will admit covering for Dr. Cortez. She is agreeable with cardiology and ID consult and antibiotics. - Lab Data Result diagrams: 03/20/19 14:44 03/20/19 14:44 Lab Results 03/20/19 03/20/19 03/20/19 Range/Units 14:44 14:44 14:44 WBC 12.6 H (3.8-10.6) k/uL RBC 4.70 (3.80-5.40) m/uL Hgb 15.4 (11.4-16.0) gm/dL Hct 44.6 (34.0-46.0) % MCV 94.8 (80.0-100.0) fL MCH 32.7 (25.0-35.0) pg MCHC 34.5 (31.0-37.0) g/dL RDW 12.8 (11.5-15.5) % Plt Count 246 (150-450) k/uL Neutrophils % 54 % Lymphocytes % 36 % Monocytes % 5 % Eosinophils % 1 % Basophils % 0 % Neutrophils # 6.8 (1.3-7.7) k/uL Lymphocytes # 4.5 (1.0-4.8) k/uL Monocytes # 0.7 (0-1.0) k/uL Eosinophils # 0.2 (0-0.7) k/uL Basophils # 0.1 (0-0.2) k/uL PT (9.0-12.0) sec INR (<1.2) APTT (22.0-30.0) sec Sodium 140 (137-145) mmol/L Potassium 3.9 (3.5-5.1) mmol/L Chloride 105 (98-107) mmol/L Carbon Dioxide 27 (22-30) mmol/L Anion Gap 8 mmol/L BUN 10 (7-17) mg/dL Creatinine 0.81 (0.52-1.04) mg/dL Est GFR (CKD-EPI)AfAm >90 (>60 ml/min/1.73 sqM) Est GFR (CKD-EPI)NonAf 79 (>60 ml/min/1.73 sqM) Glucose 87 (74-99) mg/dL Plasma Lactic Acid Kartik (0.7-2.0) mmol/L Calcium 9.2 (8.4-10.2) mg/dL Total Bilirubin 0.3 (0.2-1.3) mg/dL AST 17 (14-36) U/L ALT 17 (9-52) U/L Alkaline Phosphatase 81 (38-126) U/L Creatine Kinase 52 (30-135) U/L CK-MB (CK-2) 0.6 (0.0-2.4) ng/mL Troponin I <0.012 (0.000-0.034) ng/mL Total Protein 7.0 (6.3-8.2) g/dL Albumin 4.2 (3.5-5.0) g/dL Urine Color Urine Appearance (Clear) Urine pH (5.0-8.0) Ur Specific [place] (1.001-1.035) Urine Protein (Negative) Urine Glucose (UA) (Negative) Urine Ketones (Negative) Urine Blood (Negative) Urine Nitrite (Negative) Urine Bilirubin (Negative) Urine Urobilinogen (<2.0) mg/dL Ur Leukocyte Esterase (Negative) 03/20/19 03/20/19 03/20/19 Range/Units 14:44 14:44 15:15 WBC (3.8-10.6) k/uL RBC (3.80-5.40) m/uL Hgb (11.4-16.0) gm/dL Hct (34.0-46.0) % MCV (80.0-100.0) fL MCH (25.0-35.0) pg MCHC (31.0-37.0) g/dL RDW (11.5-15.5) % Plt Count (150-450) k/uL Neutrophils % % Lymphocytes % % Monocytes % % Eosinophils % % Basophils % % Neutrophils # (1.3-7.7) k/uL Lymphocytes # (1.0-4.8) k/uL Monocytes # (0-1.0) k/uL Eosinophils # (0-0.7) k/uL Basophils # (0-0.2) k/uL PT 10.0 (9.0-12.0) sec INR 0.9 (<1.2) APTT 24.1 (22.0-30.0) sec Sodium (137-145) mmol/L Potassium (3.5-5.1) mmol/L Chloride (98-107) mmol/L Carbon Dioxide (22-30) mmol/L Anion Gap mmol/L BUN (7-17) mg/dL Creatinine (0.52-1.04) mg/dL Est GFR (CKD-EPI)AfAm (>60 ml/min/1.73 sqM) Est GFR (CKD-EPI)NonAf (>60 ml/min/1.73 sqM) Glucose (74-99) mg/dL Plasma Lactic Acid Kartik 1.3 (0.7-2.0) mmol/L Calcium (8.4-10.2) mg/dL Total Bilirubin (0.2-1.3) mg/dL AST (14-36) U/L ALT (9-52) U/L Alkaline Phosphatase (38-126) U/L Creatine Kinase (30-135) U/L CK-MB (CK-2) (0.0-2.4) ng/mL Troponin I (0.000-0.034) ng/mL Total Protein (6.3-8.2) g/dL Albumin (3.5-5.0) g/dL Urine Color Light Yellow Urine Appearance Clear (Clear) Urine pH 7.0 (5.0-8.0) Ur Specific [place] 1.007 (1.001-1.035) Urine Protein Negative (Negative) Urine Glucose (UA) Negative (Negative) Urine Ketones Negative (Negative) Urine Blood Negative (Negative) Urine Nitrite Negative (Negative) Urine Bilirubin Negative (Negative) Urine Urobilinogen <2.0 (<2.0) mg/dL Ur Leukocyte Esterase Negative (Negative) - Radiology Data Radiology results: image reviewed (Chest x-ray does not show acute abnormality.) Disposition Clinical Impression: Endocarditis Disposition: ADMITTED IP TO THIS [facility] Condition: Serious Is patient prescribed a controlled substance at d/c from ED?: No Referrals: Harika Cortez MD [Primary Care Provider] - 1-2 days Decision Time: 15:59
[2019-03-20 15:00] LABS: Basophils # (A) 0.1 k/uL (0-0.2); Basophils % (A) 0 %; Eosinophils # (A) 0.2 k/uL (0-0.7); Eosinophils % (A) 1 %; HCT 44.6 % (34.0-46.0); HGB 15.4 gm/dL (11.4-16.0); Lymphocytes # (A) 4.5 k/uL (1.0-4.8); Lymphocytes % (A) 36 %; MCH 32.7 pg (25.0-35.0); MCHC 34.5 g/dL (31.0-37.0); MCV 94.8 fL (80.0-100.0); Mean Platelet Volume 7.3; Monocytes # (A) 0.7 k/uL (0-1.0); Monocytes % (A) 5 %; Neutrophils # (A) 6.8 k/uL (1.3-7.7); Neutrophils % (A) 54 %; Platelet Count 246 k/uL (150-450); RDW 12.8 % (11.5-15.5); WBC 12.6 k/uL (3.8-10.6)
[2019-03-20 15:10] LABS: INR 0.9 (<1.2); Partial Thromboplastin Time 24.1 sec (22.0-30.0)
[2019-03-20 15:11] LABS: ALT 17 U/L (9-52); AST 17 U/L (14-36); African American GFR (CKD) >90 (>60 ml/min/1.73 sqM); Albumin 4.2 g/dL (3.5-5.0); Alkaline Phosphatase 81 U/L (38-126); Anion Gap 8 mmol/L; Blood Urea Nitrogen 10 mg/dL (7-17); Calcium 9.2 mg/dL (8.4-10.2); Carbon Dioxide 27 mmol/L (22-30); Chloride 105 mmol/L (98-107); Creatine Kinase 52 U/L (30-135); Glucose 87 mg/dL (74-99); Non-African American GFR(CKD) 79 (>60 ml/min/1.73 sqM); Potassium 3.9 mmol/L (3.5-5.1); Sodium 140 mmol/L (137-145); Total Bilirubin 0.3 mg/dL (0.2-1.3)
--- NOTE | 2019-03-20 15:14 | XR ---
EXAMINATION TYPE: XR chest 2V DATE OF EXAM: 03/20/2019 COMPARISON: 03/13/2019 HISTORY: Hypertension and sepsis TECHNIQUE: Frontal and lateral views of the chest are obtained. FINDINGS: There is no focal air space opacity, pleural effusion, or pneumothorax seen. The cardiac silhouette size is within normal limits. The osseous structures are intact. Cervical fusion device is seen. Mild multilevel degenerative changes of the thoracic spine. Cholecystectomy clips are noted. IMPRESSION: No acute cardiopulmonary process.
[2019-03-20 15:29] LABS: Appearance,Urine Clear (Clear); Bilirubin,Urine Negative (Negative); Blood,Urine Negative (Negative); Color,Urine Light Yellow; Glucose,Urine (UA) Negative (Negative); Ketones,Urine Negative (Negative); Leukocyte Esterase,Urine Negative (Negative); Nitrite,Urine Negative (Negative); Protein,Urine Negative (Negative); Specific Gravity,Urine 1.007 (1.001-1.035); Urobilinogen,Urine <2.0 mg/dL (<2.0)
[2019-03-20 15:35] LABS: Creatine Kinase MB 0.6 ng/mL (0.0-2.4); Troponin I <0.012 ng/mL (0.000-0.034)
[2019-03-20] MEDS ORDERED: GENTAMICIN PER PHARMACY MISCELLANE PRN (16:01)
[2019-03-20] MEDS ORDERED: VANCOMYCIN IV PER PHARMACY 1 EACH MISC MISCELLANE PRN (16:02)
[2019-03-20] MEDS ORDERED: NALOXONE 0.4 MG/ML 1 ML VIAL IV PRN (16:02)
[2019-03-20] MEDS ORDERED: AMPICILLIN-SULBACTAM 3 GM in SODIUM CHLORIDE 0.9% 100 ML IVPB STA (16:04)
[2019-03-20] MEDS: SODIUM CHLORIDE 0.9% 1,000 ML IV SCH ×2 (16:44→23:59)
[2019-03-20] MEDS ORDERED: VANCOMYCIN 1,250 MG in SODIUM CHLORIDE 0.9% 250 ML IVPB ONE (17:00)
[2019-03-20 17:16] LABS: Glucose,Whole Blood 81 mg/dL (75-99)
[2019-03-20] MEDS ORDERED: GENTAMICIN 80 MG in SODIUM CHLORIDE 0.9% 100 ML IVPB ONE (17:30)
[2019-03-20 17:42] VITALS: BMI 21.2
[2019-03-20] MEDS ORDERED: hydrALAZINE HCL 20 MG/ML 1 ML VIAL IVP PRN (17:48)
--- NOTE | 2019-03-20 21:41 | P.HPIM ---
History of Present Illness H&P Date: 03/20/19 Chief Complaint: Sent in by her PCP for abnormal echocardiogram Ms. Fuentes is a 63-year-old female with a past medical history of COPD, stroke/TIA, hypertension, hyperlipidemia, neck fusion done in 2004 coming into the emergency department for possible vegetations on echocardiogram done last week. Patient was admitted on 03/14 for weakness of the right arm and she had work-up done for TIA/stroke. She had an echocardiogram done showing ejection fraction of 55 to 60% and vegetation could not be ruled out. Patient also had moderate to severe pulmonary hypertension and moderate to severe tricuspid regurgitation. She was seen by Dr. Cortez in her office and was sent to the ER for further evaluation.Patient was in the ER on Wednesday, she was sent home to come back on Wednesday for further evaluation, as the patient did not have any symptoms. Patient denies having any chest pain or palpitations. No cough or difficulty in breathing. No abdominal pain nausea vomiting or diarrhea. No dysuria or hematuria. No weakness of her extremities. No syncope or dizziness. No headaches, blurring of vision, slurred speech. No joint pains or swelling. In the ER patient had blood work done showing white count of 12.6 hemoglobin of 15.4 sodium 140, potassium 3.9, BUN 10 creatinine of 0.18. Troponins were less than 0.012. Vitals have been stable. She has been started on Unasyn, gentamicin and vancomycin and admitted for further evaluation to the ICU. Review of Systems REVIEW OF SYSTEMS: PSYCH: No anxiety or depression NEURO: No facial droop, No speech abnormalities. VASCULAR: No edema HEMATOLOGIC: No history of easy bleeding and bruising . No recent infections . RESPIRATORY: No cough, No SOB, No chest discomfort. 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 No constipation or diarrhea. All 13 ROS done and negative except for mentioned above. Past Medical History Past Medical History: COPD, CVA/TIA, Hyperlipidemia, Hypertension History of Any Multi-Drug Resistant Organisms: None Reported Past Surgical History: Cholecystectomy, Hysterectomy Additional Past Surgical History / Comment(s): neck fusion, craniotomy 2002,2003 Past Anesthesia/Blood Transfusion Reactions: No Reported Reaction Past Psychological History: No Psychological Hx Reported Smoking Status: Current every day smoker Past Alcohol Use History: Occasional Past Drug Use History: None Reported - Past Family History Father Family Medical History: Coronary Artery Disease (CAD), Deep Vein Thrombosis (DVT), Hyperlipidemia Mother Family Medical History: Coronary Artery Disease (CAD), Hyperlipidemia, Hypertension Medications and Allergies Home Medications Medication Instructions Recorded Confirmed Type Acetaminophen Tab [Tylenol] 1,000 mg PO Q6H PRN 03/13/19 03/20/19 History Loratadine [Claritin] 10 mg PO HS PRN 03/13/19 03/20/19 History Metoprolol Succinate [Toprol XL] 50 mg PO DAILY 03/13/19 03/20/19 History Rosuvastatin Calcium [Crestor] 10 mg PO DAILY 03/13/19 03/20/19 History Simethicone [Gas-X] 125 mg PO DAILY 03/13/19 03/20/19 History Sucraid 8500unit/Ml 17,000 unit PO AC-BID PRN 03/13/19 03/20/19 History Sucraid 8500unit/Ml 17,000 unit PO ACHS 03/13/19 03/20/19 History Clopidogrel Bisulfate [Plavix] 75 mg PO DAILY #30 tab 03/14/19 03/20/19 Rx Albuterol Sulfate [Proair 2 puff INHALATION RT-Q6H PRN 03/20/19 03/20/19 History Respiclick] Allergies Allergy/AdvReac Type Severity Reaction Status Date / Time No Known Allergies Allergy Verified 03/20/19 16:42 Physical Exam Vitals: Vital Signs Temp Pulse Resp BP Pulse Ox 03/20/19 18:00 58 L 12 158/87 97 03/20/19 17:15 98 F 12 97 03/20/19 17:00 57 L 14 95 03/20/19 16:28 55 L 16 163/84 99 03/20/19 15:15 54 L 18 160/93 98 03/20/19 14:40 57 L 18 176/97 98 03/20/19 13:09 98 F 66 18 188/90 95 Intake and Output 03/20/19 03/20/19 03/20/19 06:59 14:59 22:59 Intake Total 150 Output Total 500 Balance -350 Intake: IV 150 Sodium Chloride 0.9% 1, 150 000 ml @ 75 mls/hr IV . [id number] [facility] Rx#:[id number] Output: Urine 500 Other: Weight 62.596 kg GEN. APPEARANCE: lying comfortably in bed. No acute distress. HEENT : Present: Round and reactive to light. No icterus. No pallor. RESPIRATORY EXAM: Bilateral breath sounds are positive. Slightly diminished at the lower lung bases. No wheezing CARDIOVASCULAR EXAM: S1 and S2 heard. No murmurs GI/ABDOMINAL EXAM: soft, normal bowel sounds. No guarding and No rigidity. EXTREMITIES EXAM: no pedal edema BACK EXAM: normal inspection NEUROLOGICAL EXAM: alert, oriented X3, no focal deficits. PSYCHIATRIC EXAM: normal affect, normal mood SKIN EXAM: warm, dry, intact, normal color. Absent: rash Results CBC & Chem 7: 03/20/19 14:44 03/20/19 14:44 Labs: Abnormal Lab Results - Last 24 Hours (Table) 03/20/19 Range/Units 14:44 WBC 12.6 H (3.8-10.6) k/uL Thrombosis Risk Factor Assmnt - Choose All That Apply Any of the Below Risk Factors Present?: Yes Each Factor Represents 1 point: Abnormal pulmonary function (COPD) Other Risk Factors: Yes Each Risk Factor Represents 2 Points: Age 61-74 years Other congenital or acquired thrombophilia - If yes, enter type in comment: No Thrombosis Risk Factor Assessment Total Risk Factor Score: 3 Thrombosis Risk Factor Assessment Level: Moderate Risk Assessment and Plan Assessment: ASSESSMENT Possible Infective Endocarditis COPD CVA/TIA, Hyperlipidemia Hypertension Nicotine dependence H/o neck fusion Craniotomy 2002,2003 PLAN: Patient has been admitted to the ICU for possible infective endocarditis by transthoracic echo. She has been started on vancomycin, gentamicin and Unasyn. Patient will need transesophageal echo to confirm the diagnosis. So cardiology and ID services have been consulted. Patient has been restarted on all her home medications. She will be kept n.p.o. for possible CLEO tomorrow morning. Further recommendations to follow depending on the progress of the patient.
[2019-03-20] MEDS: AMPICILLIN-SULBACTAM 1.5 GM in SODIUM CHLORIDE 0.9% 50 ML IVPB SCH (23:59)
[2019-03-21] MEDS ORDERED: CALCIUM CARBONATE 500 MG CHEWABLE PO PRN (01:04)
[2019-03-21] MEDS: VANCOMYCIN 1,000 MG in SODIUM CHLORIDE 0.9% 250 ML IVPB SCH ×2 (02:23→10:59)
[2019-03-21 04:46] LABS: Basophils # (A) 0.1 k/uL (0-0.2); Basophils % (A) 1 %; Eosinophils # (A) 0.1 k/uL (0-0.7); Eosinophils % (A) 1 %; HCT 46.2 % (34.0-46.0); HGB 14.9 gm/dL (11.4-16.0); Lymphocytes # (A) 2.9 k/uL (1.0-4.8); Lymphocytes % (A) 23 %; MCH 30.9 pg (25.0-35.0); MCHC 32.2 g/dL (31.0-37.0); Mean Platelet Volume 7.5; Monocytes # (A) 0.7 k/uL (0-1.0); Monocytes % (A) 5 %; Neutrophils % (A) 69 %; Platelet Count 237 k/uL (150-450); RBC 4.81 m/uL (3.80-5.40); RDW 12.9 % (11.5-15.5)
[2019-03-21 04:57] LABS: African American GFR (CKD) >90 (>60 ml/min/1.73 sqM); Anion Gap 6 mmol/L; Blood Urea Nitrogen 10 mg/dL (7-17); Calcium 8.9 mg/dL (8.4-10.2); Carbon Dioxide 25 mmol/L (22-30); Chloride 106 mmol/L (98-107); Glucose 89 mg/dL (74-99); Non-African American GFR(CKD) 83 (>60 ml/min/1.73 sqM); Potassium 4.3 mmol/L (3.5-5.1); Sodium 137 mmol/L (137-145)
[2019-03-21] MEDS: GENTAMICIN 80 MG in SODIUM CHLORIDE 0.9% 100 ML IVPB SCH ×2 (05:45→14:07)
--- NOTE | 2019-03-21 08:47 | P.CRDCN ---
History of Present Illness Consult date: 03/21/19 History of present illness: This is a very pleasant 63-year-old with a past medical history significant for hypertension, dyslipidemia, and history of TIA, was referred to the hospital for further evaluation of abnormal echocardiogram. The patient initially presented to the hospital last week after she had an episode of right arm numbness/weakness and she was diagnosed was TIA. At that point a computed tomography scan was performed and came in to be unremarkable. Also an echocardiogram was performed and the patient was discharged before the echocardiogram results. Subsequently the echo showed possible intracardiac valves regurgitation with severe mitral regurgitation. Because of that the patient was referred to go to the hospital. Currently the patient is asymptomatic and denies any chest pain or chest discomfort, shortness of breath, dizziness, heart racing, or any focal symptoms like arm numbness or weakness or slurred speech. Her symptoms of TIA have resolved completely. The patient does see Dr. Ramirez on regular basis. I am going to schedule the patient to undergo a transesophageal echocardiogram for further clarification of the vegetation as well as to rule out any patent foramen ovale as well as for further evaluation of the mitral regurgitation. Past Medical History Past Medical History: COPD, CVA/TIA, Hyperlipidemia, Hypertension History of Any Multi-Drug Resistant Organisms: None Reported Past Surgical History: Cholecystectomy, Hysterectomy Additional Past Surgical History / Comment(s): neck fusion, craniotomy 2002,2003 Past Anesthesia/Blood Transfusion Reactions: No Reported Reaction Past Psychological History: No Psychological Hx Reported Smoking Status: Current every day smoker Past Alcohol Use History: Occasional Past Drug Use History: None Reported - Past Family History Father Family Medical History: Coronary Artery Disease (CAD), Deep Vein Thrombosis (DVT), Hyperlipidemia Mother Family Medical History: Coronary Artery Disease (CAD), Hyperlipidemia, Hypertension Medications and Allergies Home Medications Medication Instructions Recorded Confirmed Type Acetaminophen Tab [Tylenol] 1,000 mg PO Q6H PRN 03/13/19 03/20/19 History Loratadine [Claritin] 10 mg PO HS PRN 03/13/19 03/20/19 History Metoprolol Succinate [Toprol XL] 50 mg PO DAILY 03/13/19 03/20/19 History Rosuvastatin Calcium [Crestor] 10 mg PO DAILY 03/13/19 03/20/19 History Simethicone [Gas-X] 125 mg PO DAILY 03/13/19 03/20/19 History Sucraid 8500unit/Ml 17,000 unit PO AC-BID PRN 03/13/19 03/20/19 History Sucraid 8500unit/Ml 17,000 unit PO ACHS 03/13/19 03/20/19 History Clopidogrel Bisulfate [Plavix] 75 mg PO DAILY #30 tab 03/14/19 03/20/19 Rx Albuterol Sulfate [Proair 2 puff INHALATION RT-Q6H PRN 03/20/19 03/20/19 History Respiclick] Allergies Allergy/AdvReac Type Severity Reaction Status Date / Time No Known Allergies Allergy Verified 03/20/19 16:42 Physical Exam Vitals: Vital Signs Temp Pulse Resp BP Pulse Ox 03/21/19 04:00 97.8 F 58 L 14 141/78 97 03/21/19 03:00 56 L 6 L 141/78 97 03/21/19 02:00 55 L 14 161/88 97 03/21/19 01:00 54 L 12 168/96 97 03/21/19 00:09 56 L 19 168/96 97 03/21/19 00:00 97.8 F 57 L 39 H 159/85 96 03/20/19 23:00 53 L 15 159/85 96 03/20/19 22:00 53 L 13 153/92 98 03/20/19 21:00 57 L 19 153/92 96 03/20/19 20:00 98.1 F 53 L 16 165/84 97 03/20/19 19:00 58 L 22 165/84 95 03/20/19 18:00 58 L 12 158/87 97 03/20/19 17:15 98 F 12 97 03/20/19 17:00 57 L 14 95 03/20/19 16:28 55 L 16 163/84 99 03/20/19 15:15 54 L 18 160/93 98 03/20/19 14:40 57 L 18 176/97 98 03/20/19 13:09 98 F 66 18 188/90 95 Intake and Output 03/20/19 03/21/19 03/21/19 22:59 06:59 14:59 Intake Total 1125 1090 75 Output Total 500 2100 Balance 625 -1010 75 Intake: IV 375 600 75 Sodium Chloride 0.9% 1, 375 600 75 000 ml @ 75 mls/hr IV . [id number] [facility] Rx#:[id number] Intake, IV Titration 350 250 Amount Gentamicin 80 mg In 100 Sodium Chloride 0.9% 100 ml @ 102 mls/hr IVPB Q8H [facility] Rx#:[id number] Vancomycin 1,000 mg In 250 250 Sodium Chloride 0.9% 250 ml @ 125 mls/hr IVPB Q8H [facility] Rx#:[id number] Oral 400 240 Output: Urine 500 2100 Other: Weight 64.1 kg - Constitutional General appearance: no acute distress - Respiratory Respiratory: bilateral: CTA - Cardiovascular Rhythm: regular Heart sounds: normal: S1, S2 Abnormal Heart Sounds: systolic murmur Results 03/21/19 04:28 03/21/19 04:31 Cardiac Enzymes 03/20/19 03/20/19 Range/Units 14:44 14:44 AST 17 (14-36) U/L CK-MB (CK-2) 0.6 (0.0-2.4) ng/mL Troponin I <0.012 (0.000-0.034) ng/mL Coagulation 03/20/19 Range/Units 14:44 PT 10.0 (9.0-12.0) sec APTT 24.1 (22.0-30.0) sec CBC 03/20/19 03/21/19 Range/Units 14:44 04:28 WBC 12.6 H 13.0 H (3.8-10.6) k/uL RBC 4.70 4.81 (3.80-5.40) m/uL Hgb 15.4 14.9 (11.4-16.0) gm/dL Hct 44.6 46.2 H (34.0-46.0) % Plt Count 246 237 (150-450) k/uL Comprehensive Metabolic Panel 03/20/19 03/21/19 Range/Units 14:44 04:31 Sodium 140 137 (137-145) mmol/L Potassium 3.9 4.3 (3.5-5.1) mmol/L Chloride 105 106 (98-107) mmol/L Carbon Dioxide 27 25 (22-30) mmol/L BUN 10 10 (7-17) mg/dL Creatinine 0.81 0.77 (0.52-1.04) mg/dL Glucose 87 89 (74-99) mg/dL Calcium 9.2 8.9 (8.4-10.2) mg/dL AST 17 (14-36) U/L ALT 17 (9-52) U/L Alkaline Phosphatase 81 (38-126) U/L Total Protein 7.0 (6.3-8.2) g/dL Albumin 4.2 (3.5-5.0) g/dL Current Medications Generic Name Dose Route Start Last Admin Trade Name Freq PRN Reason Stop Dose Admin Calcium Carbonate/Glycine 500 mg 03/21/19 01:04 03/21/19 01:09 Tums PO 500 mg QID PRN Administration Heartburn Hydralazine HCl 10 mg 03/20/19 17:48 03/21/19 00:06 Apresoline IVP 10 mg Q6HR PRN Administration Blood Pressure - High Ampicillin Sodium/Sulbactam 50 mls @ 100 mls/hr 03/21/19 00:00 03/20/19 23:59 Sodium 1.5 gm/ Sodium Chloride IVPB 100 mls/hr Q8HR [facility] Administration Sodium Chloride 1,000 mls @ 75 mls/hr 03/20/19 16:15 03/20/19 23:59 Saline 0.9% IV 75 mls/hr .[id number] [facility] Administration Vancomycin HCl 1,000 mg/ 250 mls @ 125 mls/hr 03/21/19 02:00 03/21/19 02:23 Sodium Chloride IVPB 125 mls/hr Q8H [facility] Administration Gentamicin Sulfate 80 mg/ 102 mls @ 102 mls/hr 03/21/19 04:00 03/21/19 05:45 Sodium Chloride IVPB 102 mls/hr Q8H [facility] Administration Naloxone HCl 0.2 mg 03/20/19 16:02 Narcan IV Q2M PRN Opioid Reversal Pantoprazole Sodium 40 mg 03/21/19 09:00 Protonix IV DAILY [facility] Intake and Output 03/20/19 03/21/19 03/21/19 22:59 06:59 14:59 Intake Total 1125 1090 75 Output Total 500 2100 Balance 625 -1010 75 Intake: IV 375 600 75 Sodium Chloride 0.9% 1, 375 600 75 000 ml @ 75 mls/hr IV . [id number] [facility] Rx#:[id number] Intake, IV Titration 350 250 Amount Gentamicin 80 mg In 100 Sodium Chloride 0.9% 100 ml @ 102 mls/hr IVPB Q8H [facility] Rx#:[id number] Vancomycin 1,000 mg In 250 250 Sodium Chloride 0.9% 250 ml @ 125 mls/hr IVPB Q8H [facility] Rx#:[id number] Oral 400 240 Output: Urine 500 2100 Other: Weight 64.1 kg 03/21/19 04:28 03/21/19 04:31 Assessment and Plan Assessment: Assessment #1 an episode of TIA which has resolved #2 possible endocarditis #3 hypertension #4 dyslipidemia #5 history of smoking Plan #1 I did recommend proceeding with a CLEO to rule out vegetation #2 we will also address for any patent foramen ovale #3 also address the severity of mitral regurgitation #4 further recommendation to follow that Thank you for allowing us participate in her care
--- NOTE | 2019-03-21 08:52 | P.CONS ---
History of Present Illness - Reason for Consult Consult date: 03/21/19 Evaluation for endocarditis - History of Present Illness This is a 63-year-old female who was recently hospitalized March 13 through the after she initially presented to her doctor's office for cold symptoms. While at her doctor's office, she developed right arm weakness and her tongue felt swollen she was dizzy and lightheaded and felt like she was going to pass out and had difficulty with expressive aphasia. She couldn't walk and her legs felt limp. She sat down and symptoms started to improve and lasted for a total of 5-10 minutes. She was brought into [facility] for evaluation and was seen by neurologist and diagnosed with possible TIA and all testing had been negative for acute stroke, chest x-ray showed no acute pulmonary disease. EKG was in normal sinus rhythm. Again recommended to continue Crestor and she was discharged home. The echocardiogram was not available prior to her discharge but reported an EF of 55-60%, left atrium severely dilated. Right atrium moderately enlarged. Interatrial and interventricular septum intact with agitated saline. The right ventricular systolic pressure is 57.19 mm. Cannot rule out vegetation. The attending service contacted the patient's primary care and patient was sent back into [facility] emergency center on March 18 and was seen by Dr. Weathers. He reviewed echocardiogram with Dr. Adam and discussed with the patient that she has had no further symptoms and patient was discharged home w ith plan to follow-up with cardiology. Patient return to the emergency center on March 20 as she was advised by her PCP to return to the hospital for further testing. Patient has been afebrile on all admissions although she states she did have fevers when she initially presented to her doctor's office for cold symptoms. WBC is 13.0. Electrolytes, renal function, liver function tests all within normal limits. Albumin 4.2, lactic acid 1.3, urinalysis clear and negative for infection. Patient denies having any chest pain or shortness of breath at this time. No fevers. She denies any IV drug use. She is an active smoker trying to cut back currently at a half a pack per day. Patient continues to have a cough that is nonproductive. She has completed course of oral prednisone and Z-Timur. Review of Systems Constitutional: Denies chills, Denies fatigue, Denies fever, Denies lethargy, Denies malaise, Denies poor appetite, Denies weight loss Eyes: denies blurred vision, denies pain Ears, nose, mouth and throat: Denies dysphagia, Denies nasal congestion, Denies nasal discharge, Denies sore throat, Denies vertigo Cardiovascular: Denies chest pain, Denies decreased exercise tolerance, Denies dyspnea on exertion, Denies leg edema, Denies lightheadedness, Denies shortness of breath, Denies syncope Respiratory: Reports cough, Denies cough with sputum, Denies dyspnea, Denies excessive sputum, Denies hemoptysis, Denies home oxygen, Denies wheezing Gastrointestinal: Denies abdominal pain, Denies diarrhea, Denies loss of appetite, Denies nausea, Denies vomiting Genitourinary: Denies dysuria, Denies hematuria, Denies urgency, Denies urinary frequency Musculoskeletal: Denies frequent falls, Denies gait dysfunction, Denies myalgias Integumentary: Denies pruritus, Denies rash, Denies wounds Neurological: Denies change in mentation, Denies change in speech, Denies numbness, Denies weakness Psychiatric: Denies anxiety, Denies depression Endocrine: Denies fatigue, Denies weight change Past Medical History Past Medical History: COPD, CVA/TIA, Hyperlipidemia, Hypertension Additional Past Medical History / Comment(s): Sucrose intolerance, meningiomas status post 2 surgical resections in 2002 and 2003. History of Any Multi-Drug Resistant Organisms: None Reported Past Surgical History: Cholecystectomy, Hysterectomy Additional Past Surgical History / Comment(s): neck fusion, craniotomy 2002,2003 Past Anesthesia/Blood Transfusion Reactions: No Reported Reaction Past Psychological History: No Psychological Hx Reported Smoking Status: Current every day smoker Past Alcohol Use History: Occasional Additional Past Alcohol Use History / Comment(s): Patient is a smoker for 36 years and has cut back to one half pack per day. She denies any marijuana use, illicit drug use, alcohol use. She lives at home with her . 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 No pets in the home. Past Drug Use History: None Reported - Past Family History Father Family Medical History: Coronary Artery Disease (CAD), Deep Vein Thrombosis (DVT), Hyperlipidemia Mother Family Medical History: Coronary Artery Disease (CAD), Hyperlipidemia, Hypertension Medications and Allergies Home Medications Medication Instructions Recorded Confirmed Type Acetaminophen Tab [Tylenol] 1,000 mg PO Q6H PRN 03/13/19 03/20/19 History Loratadine [Claritin] 10 mg PO HS PRN 03/13/19 03/20/19 History Metoprolol Succinate [Toprol XL] 50 mg PO DAILY 03/13/19 03/20/19 History Rosuvastatin Calcium [Crestor] 10 mg PO DAILY 03/13/19 03/20/19 History Simethicone [Gas-X] 125 mg PO DAILY 03/13/19 03/20/19 History Sucraid 8500unit/Ml 17,000 unit PO AC-BID PRN 03/13/19 03/20/19 History Sucraid 8500unit/Ml 17,000 unit PO ACHS 03/13/19 03/20/19 History Clopidogrel Bisulfate [Plavix] 75 mg PO DAILY #30 tab 03/14/19 03/20/19 Rx Albuterol Sulfate [Proair 2 puff INHALATION RT-Q6H PRN 03/20/19 03/20/19 History Respiclick] Allergies Allergy/AdvReac Type Severity Reaction Status Date / Time No Known Allergies Allergy Verified 03/20/19 16:42 Physical Exam Vitals: Vital Signs Temp Pulse Resp BP Pulse Ox 03/21/19 04:00 97.8 F 58 L 14 141/78 97 03/21/19 03:00 56 L 6 L 141/78 97 03/21/19 02:00 55 L 14 161/88 97 03/21/19 01:00 54 L 12 168/96 97 03/21/19 00:09 56 L 19 168/96 97 03/21/19 00:00 97.8 F 57 L 39 H 159/85 96 03/20/19 23:00 53 L 15 159/85 96 03/20/19 22:00 53 L 13 153/92 98 03/20/19 21:00 57 L 19 153/92 96 03/20/19 20:00 98.1 F 53 L 16 165/84 97 03/20/19 19:00 58 L 22 165/84 95 03/20/19 18:00 58 L 12 158/87 97 03/20/19 17:15 98 F 12 97 03/20/19 17:00 57 L 14 95 11/18/19 16:28 55 L 16 163/84 99 03/20/19 15:15 54 L 18 160/93 98 03/20/19 14:40 57 L 18 176/97 98 03/20/19 13:09 98 F 66 18 188/90 95 Intake and Output 03/20/19 03/21/19 03/21/19 22:59 06:59 14:59 Intake Total 1125 1090 75 Output Total 500 2100 Balance 625 -1010 75 Intake: IV 375 600 75 Sodium Chloride 0.9% 1, 375 600 75 000 ml @ 75 mls/hr IV . [id number] [facility] Rx#:[id number] Intake, IV Titration 350 250 Amount Gentamicin 80 mg In 100 Sodium Chloride 0.9% 100 ml @ 102 mls/hr IVPB Q8H [facility] Rx#:[id number] Vancomycin 1,000 mg In 250 250 Sodium Chloride 0.9% 250 ml @ 125 mls/hr IVPB Q8H [facility] Rx#:[id number] Oral 400 240 Output: Urine 500 2100 Other: Weight 64.1 kg Gen: This is a 63-year-old female. Patient is in bed in the ICU and appears to be comfortable and in no acute distress. HEENT: Head is atraumatic, normocephalic. Pupils equal, round. Sclerae is anicteric. NECK: Supple. No JVD. No lymphadenopathy. No thyromegaly. LUNGS: Clear to auscultation. No wheezes or rhonchi. No intercostal retractions. HEART: Regular rate and rhythm. No murmur. ABDOMEN: Soft. Bowel sounds are present. No masses. No tenderness. EXTREMITIES: No pedal edema. No calf tenderness. Dorsalis pedis +2 bilaterally. NEUROLOGICAL: Patient is awake, alert and oriented x3. Cranial nerves 2 through 12 are grossly intact. Results Results: Laboratory Results WBC 13.0 k/uL (3.8-10.6) H 03/21/19 04:28 RBC 4.81 m/uL (3.80-5.40) 03/21/19 04:28 Hgb 14.9 gm/dL (11.4-16.0) 03/21/19 04:28 Hct 46.2 % (34.0-46.0) H 03/21/19 04:28 MCV 96.0 fL (80.0-100.0) 03/21/19 04:28 MCH 30.9 pg (25.0-35.0) 03/21/19 04:28 MCHC 32.2 g/dL (31.0-37.0) 03/21/19 04:28 RDW 12.9 % (11.5-15.5) 03/21/19 04:28 Plt Count 237 k/uL (150-450) 03/21/19 04:28 Neutrophils % 69 % 03/21/19 04:28 Lymphocytes % 23 % 03/21/19 04:28 Monocytes % 5 % 03/21/19 04:28 Eosinophils % 1 % 03/21/19 04:28 Basophils % 1 % 03/21/19 04:28 Neutrophils # 9.0 k/uL (1.3-7.7) H 03/21/19 04:28 Lymphocytes # 2.9 k/uL (1.0-4.8) 03/21/19 04:28 Monocytes # 0.7 k/uL (0-1.0) 03/21/19 04:28 Eosinophils # 0.1 k/uL (0-0.7) 03/21/19 04:28 Basophils # 0.1 k/uL (0-0.2) 03/21/19 04:28 ESR 3 mm/hr (0-20) 03/20/19 14:44 PT 10.0 sec (9.0-12.0) 03/20/19 14:44 INR 0.9 (<1.2) 03/20/19 14:44 APTT 24.1 sec (22.0-30.0) 03/20/19 14:44 Sodium 137 mmol/L (137-145) 03/21/19 04:31 Potassium 4.3 mmol/L (3.5-5.1) 03/21/19 04:31 Chloride 106 mmol/L (98-107) 03/21/19 04:31 Carbon Dioxide 25 mmol/L (22-30) 03/21/19 04:31 Anion Gap 6 mmol/L 03/21/19 04:31 BUN 10 mg/dL (7-17) 03/21/19 04:31 Creatinine 0.77 mg/dL (0.52-1.04) 03/21/19 04:31 Est GFR (CKD-EPI)AfAm >90 (>60 ml/min/1.73 sqM) 03/21/19 04:31 Est GFR (CKD-EPI)NonAf 83 (>60 ml/min/1.73 sqM) 03/21/19 04:31 Glucose 89 mg/dL (74-99) 03/21/19 04:31 POC Glucose (mg/dL) 81 mg/dL (75-99) 03/20/19 17:05 POC Glu Electronics Mechanic ID Myke Antonio 03/20/19 17:05 Plasma Lactic Acid Kartik 1.3 mmol/L (0.7-2.0) 03/20/19 14:44 Calcium 8.9 mg/dL (8.4-10.2) 03/21/19 04:31 Total Bilirubin 0.3 mg/dL (0.2-1.3) 03/20/19 14:44 AST 17 U/L (14-36) 03/20/19 14:44 ALT 17 U/L (9-52) 03/20/19 14:44 Alkaline Phosphatase 81 U/L (38-126) 03/20/19 14:44 Creatine Kinase 52 U/L (30-135) 03/20/19 14:44 CK-MB (CK-2) 0.6 ng/mL (0.0-2.4) 03/20/19 14:44 Troponin I <0.012 ng/mL (0.000-0.034) 03/20/19 14:44 Total Protein 7.0 g/dL (6.3-8.2) 03/20/19 14:44 Albumin 4.2 g/dL (3.5-5.0) 03/20/19 14:44 Urine Color Light Yellow 03/20/19 15:15 Urine Appearance Clear (Clear) 03/20/19 15:15 Urine pH 7.0 (5.0-8.0) 03/20/19 15:15 Ur Specific [place] 1.007 (1.001-1.035) 03/20/19 15:15 Urine Protein Negative (Negative) 03/20/19 15:15 Urine Glucose (UA) Negative (Negative) 03/20/19 15:15 Urine Ketones Negative (Negative) 03/20/19 15:15 Urine Blood Negative (Negative) 03/20/19 15:15 Urine Nitrite Negative (Negative) 03/20/19 15:15 Urine Bilirubin Negative (Negative) 03/20/19 15:15 Urine Urobilinogen <2.0 mg/dL (<2.0) 03/20/19 15:15 Ur Leukocyte Esterase Negative (Negative) 03/20/19 15:15 CBC & Chem 7: 03/21/19 04:28 03/21/19 04:31 Labs: Abnormal Lab Results - Last 24 Hours (Table) 03/20/19 03/21/19 Range/Units 14:44 04:28 WBC 12.6 H 13.0 H (3.8-10.6) k/uL Hct 46.2 H (34.0-46.0) % Neutrophils # 9.0 H (1.3-7.7) k/uL Assessment and Plan Plan: This is a 63-year-old female who recently presented to the hospital for TIA and was discharged home prior to echocardiogram report being completed. The echocardiogram reported cannot rule out vegetation and patient has been sent back in the hospital by her PCP for further evaluation. She has been started on Unasyn, gentamicin and vancomycin. Cardiology is on consult and anticipate CLEO to be completed today. Continue supportive care. Further recommendations as patient progresses. The above dictated assessment and findings were discussed with Dr. Martínez. The impression and plan of care have been directed as dictated. Ana Branch nurse practitioner acting as scribe for Dr. Martínez..
[2019-03-21] MEDS ORDERED: PANTOPRAZOLE 40 MG/10 ML VIAL IV SCH (09:00)
[2019-03-21] MEDS: AMPICILLIN-SULBACTAM 1.5 GM in SODIUM CHLORIDE 0.9% 50 ML IVPB SCH (09:32)
[2019-03-21 09:34] VITALS: RESP 16
[2019-03-21] MEDS ORDERED: BENZOCAINE SPRAY 1 CAN TOPICAL PRN (11:15)
[2019-03-21] MEDS ORDERED: fentaNYL (PF) 50 MCG/ML 2 ML AMP IVP ONE (11:15)
[2019-03-21] MEDS ORDERED: MIDAZOLAM 2 MG/2 ML VIAL IV ONE (11:15)
[2019-03-21] MEDS ORDERED: MIDAZOLAM 2 MG/2 ML VIAL IV STA (12:20)
[2019-03-21 13:01] VITALS: PULSE 56; TEMP 98.2
--- NOTE | 2019-03-21 14:30 | P.DS ---
Providers Date of admission: 03/20/19 16:04 Attending physician: Beba Huang Consults: 03/20/19 16:04 Consult Physician Urgent Consulting Provider: Mk Martínez Consult Reason/Comments: Evaluate for endocarditis Do you want consulting provider notified?: Yes Consult Physician Urgent Consulting Provider: Ed Gambino Consult Reason/Comments: Evaluate for endocarditis Do you want consulting provider notified?: Yes Primary care physician: Harika Cortez [facility] Course: 63-year-old female with a past medical history of COPD, stroke/TIA, hypertension, hyperlipidemia, neck fusion done in 2004 coming into the emergency department for possible vegetations on echocardiogram done last week. Patient was admitted on 03/14 for weakness of the right arm and she had work-up done for TIA/stroke. She had an echocardiogram done showing ejection fraction of 55 to 60% and vegetation could not be ruled out. Patient also had moderate to severe pulmonary hypertension and moderate to severe tricuspid regurgitation. She was seen by Dr. Cortez in her office and was sent to the ER for further evaluation.Patient was in the ER on Wednesday, she was sent home to come back on Wednesday for further evaluation, as the patient did not have any symptoms. Patient denies having any chest pain or palpitations. No cough or difficulty in breathing. No abdominal pain nausea vomiting or diarrhea. No dysuria or hematuria. No weakness of her extremities. No syncope or dizziness. No headaches, blurring of vision, slurred speech. No joint pains or swelling. In the ER patient had blood work done showing white count of 12.6 hemoglobin of 15.4 sodium 140, potassium 3.9, BUN 10 creatinine of 0.18. Troponins were less than 0.012. Vitals have been stable. She has been started on Unasyn, gentamicin and vancomycin and admitted for further evaluation to the ICU. 03/21/2019 Patient doesn't have any clinical evidence of any colitis blood cultures are negative. Patient underwent CLEO which did not show any vegetation patient had moderate mitral regurgitation, which will be followed as an outpatient by cardiology. Cardiology cleared for discharge. Patient was evaluated by infectious disease they cleared her for discharge as well. Patient does have leukocytosis which is from systemic steroids she was using until recently patient still has some hoarseness of voice may benefit from evaluation by ENT as an outpatient. 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 Patient was evaluated by neurology during her last hospitalization for TIA and that time neurology did not recommend any MRI. She was started on Plavix which she will continue during her last hospitalization. PHYSICAL EXAMINATION: GENERAL: The patient is alert and oriented x3, not in any acute distress. Well developed, well nourished. HEENT: Pupils are round and equally reacting to light. EOMI. No scleral icterus. No conjunctival pallor. Normocephalic, atraumatic. No pharyngeal erythema. No thyromegaly. CARDIOVASCULAR: S1 and S2 present. No murmurs, rubs, or gallops. PULMONARY: Chest is clear to auscultation, no wheezing or crackles. ABDOMEN: Soft, nontender, nondistended, normoactive bowel sounds. No palpable organomegaly. MUSCULOSKELETAL: No joint swelling or deformity. EXTREMITIES: No cyanosis, clubbing, or pedal edema. NEUROLOGICAL: Gross neurological examination did not reveal any focal deficits. SKIN: No rashes. -Rule out endocarditis For rest of the hospitalization course and other medical problems please refer to dictation from Dr. Huang from yesterday. Patient Condition at Discharge: Serious Plan - Discharge Summary Discharge Rx Participant: No New Discharge Prescriptions: Continue Loratadine [Claritin] 10 mg PO HS PRN PRN Reason: Allergy Symptoms Acetaminophen Tab [Tylenol] 1,000 mg PO Q6H PRN PRN Reason: Fever And/ Or Pain Simethicone [Gas-X] 125 mg PO DAILY Rosuvastatin Calcium [Crestor] 10 mg PO DAILY Metoprolol Succinate [Toprol XL] 50 mg PO DAILY Sucraid 8500unit/Ml 17,000 unit PO ACHS Sucraid 8500unit/Ml 17,000 unit PO AC-BID PRN PRN Reason: SNACKS Clopidogrel Bisulfate [Plavix] 75 mg PO DAILY #30 tab Albuterol Sulfate [Proair Respiclick] 2 puff INHALATION RT-Q6H PRN PRN Reason: Shortness Of Breath Discharge Medication List Acetaminophen Tab [Tylenol] 1,000 mg PO Q6H PRN 03/13/19 [History] Loratadine [Claritin] 10 mg PO HS PRN 03/13/19 [History] Metoprolol Succinate [Toprol XL] 50 mg PO DAILY 03/13/19 [History] Rosuvastatin Calcium [Crestor] 10 mg PO DAILY 03/13/19 [History] Simethicone [Gas-X] 125 mg PO DAILY 03/13/19 [History] Sucraid 8500unit/Ml 17,000 unit PO AC-BID PRN 03/13/19 [History] Sucraid 8500unit/Ml 17,000 unit PO ACHS 03/13/19 [History] Clopidogrel Bisulfate [Plavix] 75 mg PO DAILY #30 tab 03/14/19 [Rx] Albuterol Sulfate [Proair Respiclick] 2 puff INHALATION RT-Q6H PRN 03/20/19 [History] Follow up Appointment(s)/Referral(s): Harika Cortez MD [Primary Care Provider] - 3 Days Discharge Disposition: HOME SELF-CARE
--- NOTE | 2019-03-21 14:42 | ECHOT ---
TRANSESOPHAGEAL ECHOCARDIOGRAM TRANSESOPHAGEAL ECHOCARDIOGRAM REPORT Mrs. Fuentes initially came to the emergency room last week with her symptoms suggestive of transient ischemic attack. Transthoracic echocardiogram was performed which raised the possibility of vegetation. The patient does not have any clinical features for endocarditis. The patient is known to have moderate degree of mitral valve prolapse. Transesophageal echocardiogram was performed to rule out any vegetations. The patient was given intravenous sedation with versed and fentanyl and transesophageal echocardiogram was performed without any complications. FINDINGS: Left ventricular chamber is normal in size with normal left ventricular systolic functions. Left atrium is moderately enlarged. There is thickening of the tips of the mitral leaflets noted suggestive of myxomatous changes with a mild degree of mitral valve prolapse. There is evidence of moderate degree of mitral regurgitation. There is no evidence of reversal of flow in the pulmonary veins. Pulmonary systolic:diastolic ratio is normal. The mitral valve regurgitation is central in origin. A moderate degree of tricuspid regurgitation is noted. There is no evidence of vegetations. No definite evidence of vegetations of mitral or tricuspid or aortic valve. Aortic valve is mildly thickened. Intraatrial septum is intact. There is evidence of small PFO with [id number] shunt. There is no evidence of any atrial septal aneurysm. Saline contrast study was performed. There is no evidence of any [id number]-[id number] shunt. Prominent eustachian valve is visualized. FINAL IMPRESSION: 1. There is thickening of the tips of the mitral leaflets noted suggestive of myxomatous changes with a mild degree of prolapse of the posterior mitral leaflet. There is evidence of moderate degree of mitral valve regurgitation. There is no evidence of reversal of flow in the pulmonary vein. Pulmonary vein systolic:diastolic ratio is normal. 2. There is no definite evidence of any vegetations on mitral or tricuspid valve. 3. There is a moderate degree of tricuspid regurgitation noted. 4. Intraatrial septum is intact. 5. There is no evidence of any atrial septal aneurysm. 6. There is a very small PFO. 7. Color Doppler study shows minimal [id number] shunt. 8. Saline contrast study was performed. There is no evidence of any sejkt-rc-posq shunt. 9. Ascending aorta and aortic valve are normal. RECOMMENDATIONS: Medical treatment. MMODL / IJN: [id number] /
[2019-03-21 14:54] VITALS: BP 146/86
[2019-03-21] MEDS ORDERED: VANCOMYCIN TROUGH DUE 1 EACH MISC MISCELLANE ONE (17:00)
--- NOTE | 2019-03-21 20:15 | P.CON ---
Consult Note - . Consult date: 03/21/19 Assessment/Plan:: This is a 63-year-old female who was recently hospitalized March 13 through the after she initially presented to her doctor's office for cold symptoms. While at her doctor's office, she developed right arm weakness and her tongue felt swollen she was dizzy and lightheaded and felt like she was going to pass out and had difficulty with expressive aphasia. She couldn't walk and her legs felt limp. She sat down and symptoms started to improve and lasted for a total of 5-10 minutes. She was brought into [facility] for evaluation and was seen by neurologist and diagnosed with possible TIA and all testing had been negative for acute stroke, chest x-ray showed no acute pulmonary disease. EKG was in normal sinus rhythm. Again recommended to continue Crestor and she was discharged home. The echocardiogram was not available prior to her discharge but reported an EF of 55-60%, left atrium severely dilated. Right atrium moderately enlarged. Interatrial and interventricular septum intact with agitated saline. The right ventricular systolic pressure is 57.19 mm. Cannot rule out vegetation. The attending service contacted the patient's primary care and patient was sent back into [facility] emergency center on March 18 and was seen by Dr. Weathers. He reviewed echocardiogram with Dr. Adam and discussed with the patient that she has had no further symptoms and patient was discharged home with plan to follow-up with cardiology. Patient return to the emergency center on March 20 as she was advised by her PCP to return to the hospital for further testing. Patient has been afebrile on all admissions although she states she did have fevers when she initially presented to her doctor's office for cold symptoms. WBC is 13.0. Electrolytes, renal function, liver function tests all within normal limits. Albumin 4.2, lactic acid 1.3, urinalysis clear and negative for infection. Patient denies having any chest pain or shortness of breath at this time. No fevers. She denies any IV drug use. She is an active smoker trying to cut back currently at a half a pack per day. Patient continues to have a cough that is nonproductive. She has completed course of oral prednisone and Z-Timur. Please see the consult note as dictated by [employer] Mrs Ana Hernandezliliana. Patient with recent TIA and good recovery of neurologic deficits was directed for admission due to abnormal echocardgram. Today to evaluate the possibility of endocarditis due to the chronic murmur as well as a possibility of a patent odell ovale, both which are of some concern because of her history of a TIA. Has noted the patient's neurologic symptoms have completely resolved. She apparently recently had a bout of exacerbation of COPD and after a course of prednisone and azithromycin she improved, is now on her baseline oxygen supplementation. If this and the plan is for blood cultures to be obtained, CLEO to be performed to further evaluate. The patient at this time though has no other significant stigmata of endocarditis, with no splinter hemorrhages, no telangiectasia, no fevers, chills or rigors, and no significant change of her known heart murmur. If CLEO is negative would not need a course of antibiotic therapy and at this time, would await blood cultures to further evaluate the most appropriate course of antibiotic therapy if the CLEO is positive. I agree with evaluation, assessment and plan as dictated by nurse practitioner Mrs. Ana Branch.
[2019-03-22] MEDS ORDERED: GENTAMICIN TROUGH DUE 1 EACH MISC MISCELLANE ONE (11:00)
[2019-03-22] MEDS ORDERED: GENTAMICIN PEAK DUE 1 EACH MISC MISCELLANE ONE (13:30)
== END 2019-03-21 14:54 | disposition home or self-care (01) | DRG 307 ==
LOC: EC 12:56 → 2SICU 16:04
PROVIDERS: ADMIT Internal Medicine; ATTEND Internal Medicine
PROC: B246ZZ4 Ultrasonography of Right and Left Heart, Transesophageal (ICD-10-PCS; principal; 2019-03-21)
DX: I08.1 Rheumatic disorders of both mitral and tricuspid valves (principal); I27.20 Pulmonary hypertension, unspecified; E78.5 Hyperlipidemia, unspecified; I10 Essential (primary) hypertension; J44.9 Chronic obstructive pulmonary disease, unspecified; E74.31 Sucrase-isomaltase deficiency; D72.829 Elevated white blood cell count, unspecified; T38.0X5A Adverse effect of glucocorticoids and synthetic analogues, initial encounter; F17.210 Nicotine dependence, cigarettes, uncomplicated; Z71.6 Tobacco abuse counseling; Z79.02 Long term (current) use of antithrombotics/antiplatelets; Z79.899 Other long term (current) drug therapy; Z86.011 Personal history of benign neoplasm of the brain; Z98.1 Arthrodesis status; Z86.73 Personal history of transient ischemic attack (TIA), and cerebral infarction without residual deficits; Z98.890 Other specified postprocedural states; Z90.710 Acquired absence of both cervix and uterus; Z90.49 Acquired absence of other specified parts of digestive tract; Z82.49 Family history of ischemic heart disease and other diseases of the circulatory system; Z83.49 Family history of other endocrine, nutritional and metabolic diseases; Z83.2 Family history of diseases of the blood and blood-forming organs and certain disorders involving the immune mechanism
CPT/HCPCS: 36415; 71046; 80048; 80053; 80170; 81003; 82550; 82553; 83605; 84484; 85025; 85610; 85652; 85730; 87040; 93005; 93312; 93320; 93325; 99284

== ENCOUNTER → 2019-03-27 | Outpatient (CLI) | payer BC, MEDICARE ==
--- NOTE | 2019-03-27 22:42 | MR ---
EXAMINATION TYPE: MR brain wo con DATE OF EXAM: 03/27/2019 COMPARISON: None HISTORY: TIA, HX OF BRAIN TUMOR, PREV MRI ON PACS Standard multiplanar, multisequence MRI departmental protocol Multiplanar, multisequence images of the brain were acquired. Diffusion weighted imaging was performe d. FINDINGS: There is mixed signal and metal artifact in the right posterior frontal lobe consistent wit h encephalomalacia and previous surgery. There is no mass effect nor midline shift. There is no sign of intracranial hemorrhage. There is also metal artifact in the right cerebellar hemisphere. I see no sign of an acute cortical infarct. On the FLAIR and T2 images there is irregular 1.5 cm area of increased signal within the central romana . There are scattered white matter high signal foci in both cerebral hemispheres that measure up to 5 mm. Total number is approximately 10. The corpus callosum is intact. Sella turcica appears intact. IMPRESSION: Postsurgical changes with encephalomalacia inferior posterior right cerebellar hemisphere and also r ight posterior frontal lobe. I see no sign of acute intracranial abnormality. No sign of recurrent tu mor. I have no old exam to compare. Increased signal in the white matter and also central romana probably due to some chronic small vessel ischemia.
== END | disposition home or self-care (01) ==
LOC: RADMRIMAIN 18:08
PROVIDERS: ATTEND Internal Medicine
DX: G93.89 Other specified disorders of brain (principal); Z98.890 Other specified postprocedural states
CPT/HCPCS: 70551

== ENCOUNTER 2020-04-08 05:52 | Day surgery (SDC) | payer BC, MEDICARE ==
[~2020-04-08 05:52] MED LIST: ALPRAZolam 0.25 MG TAB PO PRN; ALPRAZolam 0.5 MG TAB PO PRN; ASPIRIN 325 MG TAB PO STA; ATORVASTATIN 80 MG TAB PO STA; NITROGLYCERIN SL TABS 0.4 MG TAB SUBLINGUAL PRN; SODIUM CHLORIDE 0.9% 1,000 ML in EMPTY BAG 1 BAG IV ONE
[2020-04-08 06:26] VITALS: RESP 16; TEMP 98.2
[2020-04-08] MEDS ORDERED: SODIUM CHLORIDE 0.9% 1,000 ML IV ONE (06:30)
[2020-04-08 06:31] LABS: Basophils # (A) 0.1 k/uL (0-0.2); Basophils % (A) 1 %; Eosinophils # (A) 0.2 k/uL (0-0.7); Eosinophils % (A) 2 %; HCT 46.3 % (34.0-46.0); HGB 15.7 gm/dL (11.4-16.0); Lymphocytes # (A) 2.3 k/uL (1.0-4.8); Lymphocytes % (A) 25 %; MCH 32.5 pg (25.0-35.0); MCV 95.6 fL (80.0-100.0); Mean Platelet Volume 8.4; Monocytes # (A) 0.5 k/uL (0-1.0); Monocytes % (A) 6 %; Neutrophils # (A) 5.9 k/uL (1.3-7.7); Neutrophils % (A) 63 %; Platelet Count 202 k/uL (150-450); RBC 4.84 m/uL (3.80-5.40); RDW 12.6 % (11.5-15.5); WBC 9.4 k/uL (3.8-10.6)
[2020-04-08 06:49] LABS: Potassium 4.5 mmol/L (3.5-5.1)
[2020-04-08] MEDS ORDERED: fentaNYL (PF) 50 MCG/ML 2 ML AMP IV ONE (07:37)
[2020-04-08] MEDS ORDERED: MIDAZOLAM 2 MG/2 ML VIAL IV ONE (07:39)
[2020-04-08] MEDS ORDERED: LIDOCAINE 1% INJ 10MG/ML (20 ML MDV) SQ ONE (07:39)
[2020-04-08] MEDS ORDERED: VERAPAMIL SYRINGE (5 MG/10 ML) INTRAARTER ONE (07:40)
[2020-04-08] MEDS ORDERED: HEPARIN SODIUM 1,000 UN/ML (10ML VL) IV ONE (07:44)
[2020-04-08] MEDS ORDERED: IOPAMIDOL-370 125ML BTL INJ ONE (07:54)
[2020-04-08] MEDS ORDERED: RX INFO: IV CONTRAST WAS GIVEN 1 EACH MISC MISCELLANE PRN (08:09)
[2020-04-08] MEDS ORDERED: SODIUM CHLORIDE 0.9% 1,000 ML IV SCH (08:15)
--- NOTE | 2020-04-08 09:50 | CC ---
CARDIAC CATHETERIZATION REPORT Mrs Fuentes is a 65-year-old female with known history of hypertension, hyperlipidemia, as well as chronic tobacco use and paroxysmal atrial fibrillation, who has been complaining of symptoms of dyspnea and chest discomfort. She underwent a myocardial perfusion imaging that revealed evidence of inducible ischemia involving the anterior wall. In view of that, recommendation regarding cardiac catheterization, the procedures, risks, and complication were discussed with the patient who is in full understanding and agreement. PROCEDURE: Patient was brought to manager cath lab in a fasting semi-sedated state after receiving Versed and fentanyl and achieving moderate conscious sedated state. Using Xylocaine anesthesia and Seldinger technique, a 6-St Lucian sheath was introduced in the right radial artery. Selective right and left coronary angiography were performed using 5- [place] Lucian 3.5 bend right and left Giovanni catheter, multiple views including an excuse obtained. Following that, a 5-St Lucian tight pigtail catheter introduced into the left ventricle and a 30-degree PRO view of the left ventricle was obtained. Following that, catheter and sheath were removed. Hemostasis was obtained with deployment of a TR band. There was no immediate complication. Patient was returned to her room in stable condition. Of note, the patient received 3500 units of intravenous heparin as well as intra-arterial verapamil. FINDINGS: LEFT MAIN: This is a short size vessel, bifurcating into left circumflex, left anterior descending artery. The distal segment of the left main is aneurysmal, but there is no evidence of obstructive disease. LEFT ANTERIOR DESCENDING ARTERY: This is a large-sized vessel reaching toward the apex with a wraparound apex segment, tapers down distal third, gives rise to a very large diagonal branch proximally. The left anterior descending artery as well as branches have no evidence of obstructive coronary artery disease. LEFT CIRCUMFLEX: This is a nondominant vessel, large in caliber, giving rise to a large obtuse marginal branch. The left circumflex proximally has a 20% plaque. The rest of the vessel has no high-grade stenosis. RIGHT CORONARY ARTERY: This is a dominant vessel, large in caliber, bifurcating distally PDA and posterolateral segment branches. The right coronary artery as well as branches have no evidence of obstructive cor disease. LEFT VENTRICULOGRAM: The ventriculogram was performed in 30-degree PRO view and revealed normal size and systolic function. Ejection fraction is 55%-60%. There was a 2+ mitral regurgitation. HEMODYNAMICS: There was there was no gradient across the aortic valve. The left ventricular end-diastolic pressure is 12-14 tumor mmHg. CONCLUSION: 1. Mild obstructive disease in the proximal left circumflex. 2. 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 3. Normal size and systolic function with 2+ mitral regurgitation. RECOMMENDATION: In view of finding anatomy, I recommend continue medical therapy with aggressive risk modifications being initiated. Those findings and recommendation were discussed with the patient and her family and they are in full understanding and agreement. Duration of sedation is 20 minutes. MMODL / IJN: [id number] /
--- NOTE | 2020-04-08 10:02 | LTR ---
DATE OF SERVICE: 04/08/2020 RE: Kathryn Fuentes Dear Dr. Cortez; I had the pleasure to perform cardiac catheterization on Mrs. Fuentes at [facility] on April 08, 2020 and a full copy of the procedure note will be forwarded to you. In brief, she was found to have mild obstructive disease with a normal left ventricular size and systolic function and 2+ mitral regurgitation. Based on those findings. I recommend continue medical therapy with the aggressive risk modifications being initiated. Thank you again for allowing me to participate in this patient's personal care. Please feel free to call for any questions. Sincerely yours, MD SETH CarranzaL / SEBASTIANN: [id number] /
[2020-04-08 10:33] VITALS: BP 159/72; PULSE 63
[2020-04-08] MEDS ORDERED: ACETAMINOPHEN TAB 500 MG TAB PO ONE (10:35)
[2020-04-09] MEDS ORDERED: ATORVASTATIN 20 MG TAB PO SCH (09:00)
[2020-04-09] MEDS ORDERED: METOPROLOL SUCCINATE (ER) 50 MG TAB.ER.24H PO SCH (09:00)
== END 2020-04-08 11:01 | disposition home or self-care (01) ==
LOC: CATHCVL 05:52
PROVIDERS: ATTEND Internal Medicine Interventional Cardiology
DX: I25.10 Atherosclerotic heart disease of native coronary artery without angina pectoris (principal); I25.83 Coronary atherosclerosis due to lipid rich plaque; I25.41 Coronary artery aneurysm; I34.0 Nonrheumatic mitral (valve) insufficiency; E78.2 Mixed hyperlipidemia; I48.0 Paroxysmal atrial fibrillation; I10 Essential (primary) hypertension; F17.210 Nicotine dependence, cigarettes, uncomplicated; Z86.73 Personal history of transient ischemic attack (TIA), and cerebral infarction without residual deficits; Z79.890 Hormone replacement therapy; Z79.01 Long term (current) use of anticoagulants; Z79.899 Other long term (current) drug therapy; Z82.49 Family history of ischemic heart disease and other diseases of the circulatory system; Z98.1 Arthrodesis status
CPT/HCPCS: 93458; 80048; 85025; C1769; C1894; J2250; J2001; J3010; J1644; Q9967

== ENCOUNTER 2020-09-25 05:45 | Inpatient (IN) | payer BC ==
[2020-09-25] MEDS ORDERED: DILTIAZEM DRIP BOLUS FROM BAG 1 MG SOLN IV ONE (06:12)
[2020-09-25] MEDS: DILTIAZEM 125 MG in SODIUM CHLORIDE 0.9% 100 ML IV SCH (06:27)
--- NOTE | 2020-09-25 06:29 | ED ---
SOB HPI - General Chief Complaint: Shortness of Breath Stated Complaint: SOB Time Seen by Provider: 09/25/20 05:57 Source: patient, RN notes reviewed Mode of arrival: ambulatory Limitations: no limitations - History of Present Illness Initial Comments: This a 65-year-old female presents emergency Department chief complaint shortness breath. Patient states she's been having increasing shortness of breath over the last couple weeks. Patient was very sleepy student services dean doing breathing treatments and states that they believe that she has COPD. Patient did have a heart cath 16 months ago. She recently saw her student services dean who ordered further testing. Patient denies any chest pain but states that she has some pressure in her block lies. Patient denies any significant leg pain but states his been swollen but states her student services dean addressed that yesterday. is on a cardiac disease. - Related Data Home Medications Medication Instructions Recorded Confirmed Loratadine [Claritin] 10 mg PO HS PRN 03/13/19 09/25/20 Rosuvastatin Calcium [Crestor] 10 mg PO QAM 03/13/19 09/25/20 Simethicone [Gas-X] 125 mg PO DAILY 03/13/19 09/25/20 Estrogens, Conjugated [Premarin] 0.625 mg PO QAM 04/05/20 09/25/20 Sucraid 8500/Ml Solution 18,000 unit PO AC-BID PRN 04/05/20 09/25/20 Sucraid 8500unit/Ml 18,000 unit PO ACHS 04/05/20 09/25/20 Albuterol Nebulized [Ventolin 2.5 mg INHALATION RT-Q8H 09/25/20 09/25/20 Nebulized] Apixaban [Eliquis] 5 mg PO BID 09/25/20 09/25/20 Metoprolol Succinate (ER) [Toprol 25 mg PO DAILY 09/25/20 09/25/20 Xl] Omeprazole [PriLOSEC] 20 mg PO AC-BRKFST 09/25/20 09/25/20 Allergies Allergy/AdvReac Type Severity Reaction Status Date / Time No Known Allergies Allergy Verified 09/25/20 06:50 Review of Systems ROS Statement: Those systems with pertinent positive or pertinent negative responses have been documented in the HPI. ROS Other: All systems not noted in ROS Statement are negative. Past Medical History Past Medical History: COPD, CVA/TIA, Hyperlipidemia, Hypertension Additional Past Medical History / Comment(s): SEE DR. TYLER'S H & P. Sucrose intolerance, meningiomas status post 2 surgical resections in 2002 and 2003. History of Any Multi-Drug Resistant Organisms: None Reported Past Surgical History: Cholecystectomy, Hysterectomy Additional Past Surgical History / Comment(s): Neck fusion. Craniotomy 2002,1999 (BENIGN TUMORS). Past Anesthesia/Blood Transfusion Reactions: No Reported Reaction Past Psychological History: No Psychological Hx Reported Smoking Status: Current every day smoker Past Alcohol Use History: Occasional Past Drug Use History: None Reported - Past Family History Father Family Medical History: Coronary Artery Disease (CAD), Deep Vein Thrombosis (DVT), Hyperlipidemia Mother Family Medical History: Coronary Artery Disease (CAD), Hyperlipidemia, Hypertension General Exam Limitations: no limitations General appearance: alert, in no apparent distress Head exam: Present: atraumatic, normocephalic, normal inspection Eye exam: Present: normal appearance, PERRL, EOMI. Absent: scleral icterus, conjunctival injection, periorbital swelling ENT exam: Present: normal exam, normal oropharynx, mucous membranes moist Neck exam: Present: normal inspection, full ROM. Absent: tenderness, meningismus, lymphadenopathy Respiratory exam: Present: normal lung sounds bilaterally. Absent: respiratory distress, wheezes, rales, rhonchi, stridor Cardiovascular Exam: Present: tachycardia, irregular rhythm, normal heart sounds. Absent: regular rate, normal rhythm, systolic murmur, diastolic murmur, rubs, gallop, clicks Neurological exam: Present: alert, oriented X3 Skin exam: Present: warm, dry, intact, normal color. Absent: rash Course Vital Signs 09/25/20 09/25/20 05:50 06:50 Temperature 97.8 F Pulse Rate 104 H 89 Respiratory 22 18 Rate Blood Pressure 120/89 131/90 O2 Sat by Pulse 98 97 Oximetry Medical Decision Making - Lab Data Result diagrams: 09/25/20 06:16 09/25/20 06:16 Lab Results 09/25/20 09/25/20 09/25/20 Range/Units 06:16 06:16 06:16 WBC 12.0 H (3.8-10.6) k/uL RBC 4.58 (3.80-5.40) m/uL Hgb 15.2 (11.4-16.0) gm/dL Hct 44.3 (34.0-46.0) % MCV 96.6 (80.0-100.0) fL MCH 33.1 (25.0-35.0) pg MCHC 34.3 (31.0-37.0) g/dL RDW 14.1 (11.5-15.5) % Plt Count 186 (150-450) k/uL MPV 9.5 Neutrophils % 75 % Lymphocytes % 17 % Monocytes % 6 % Eosinophils % 1 % Basophils % 1 % Neutrophils # 9.1 H (1.3-7.7) k/uL Lymphocytes # 2.0 (1.0-4.8) k/uL Monocytes # 0.7 (0-1.0) k/uL Eosinophils # 0.1 (0-0.7) k/uL Basophils # 0.1 (0-0.2) k/uL PT 10.3 (9.0-12.0) sec INR 1.0 (<1.2) APTT 23.3 (22.0-30.0) sec Sodium 137 (137-145) mmol/L Potassium 4.7 (3.5-5.1) mmol/L Chloride 109 H (98-107) mmol/L Carbon Dioxide 20 L (22-30) mmol/L Anion Gap 8 mmol/L BUN 15 (7-17) mg/dL Creatinine 0.92 (0.52-1.04) mg/dL Est GFR (CKD-EPI)AfAm 76 (>60 ml/min/1.73 sqM) Est GFR (CKD-EPI)NonAf 66 (>60 ml/min/1.73 sqM) Glucose 142 H (74-99) mg/dL Plasma Lactic Acid Kartik (0.7-2.0) mmol/L Calcium 8.8 (8.4-10.2) mg/dL Magnesium 2.0 (1.6-2.3) mg/dL Total Bilirubin 0.7 (0.2-1.3) mg/dL AST 51 H (14-36) U/L ALT 46 H (4-34) U/L Alkaline Phosphatase 94 (38-126) U/L Troponin I (0.000-0.034) ng/mL Total Protein 6.4 (6.3-8.2) g/dL Albumin 3.9 (3.5-5.0) g/dL 09/25/20 09/25/20 Range/Units 06:16 06:16 WBC (3.8-10.6) k/uL RBC (3.80-5.40) m/uL Hgb (11.4-16.0) gm/dL Hct (34.0-46.0) % MCV (80.0-100.0) fL MCH (25.0-35.0) pg MCHC (31.0-37.0) g/dL RDW (11.5-15.5) % Plt Count (150-450) k/uL MPV Neutrophils % % Lymphocytes % % Monocytes % % Eosinophils % % Basophils % % Neutrophils # (1.3-7.7) k/uL Lymphocytes # (1.0-4.8) k/uL Monocytes # (0-1.0) k/uL Eosinophils # (0-0.7) k/uL Basophils # (0-0.2) k/uL PT (9.0-12.0) sec INR (<1.2) APTT (22.0-30.0) sec Sodium (137-145) mmol/L Potassium (3.5-5.1) mmol/L Chloride (98-107) mmol/L Carbon Dioxide (22-30) mmol/L Anion Gap mmol/L BUN (7-17) mg/dL Creatinine (0.52-1.04) mg/dL Est GFR (CKD-EPI)AfAm (>60 ml/min/1.73 sqM) Est GFR (CKD-EPI)NonAf (>60 ml/min/1.73 sqM) Glucose (74-99) mg/dL Plasma Lactic Acid Kartik 1.7 (0.7-2.0) mmol/L Calcium (8.4-10.2) mg/dL Magnesium (1.6-2.3) mg/dL Total Bilirubin (0.2-1.3) mg/dL AST (14-36) U/L ALT (4-34) U/L Alkaline Phosphatase (38-126) U/L Troponin I <0.012 (0.000-0.034) ng/mL Total Protein (6.3-8.2) g/dL Albumin (3.5-5.0) g/dL - EKG Data -: EKG Interpreted by Me EKG Comments: EKG performed at 5:56 A. fib with RVR rate of 134 QRS 82 QT/QTC 320/477 Critical Care Time Critical Care Time: Yes Total Critical Care Time: 35 Critical Care Time: Total 35 minutes of critical care time were used to initial evaluation the patient, reviewed past medical history or labs EKG chest x-ray. Patient found to have pleural effusion, A. fib RVR she does have a history A. fib started on Cardizem included a bolus. Patient's case discussed with admitting physician will have cardiology consult. Disposition Clinical Impression: Atrial fibrillation with RVR, Dyspnea, COPD (chronic obstructive pulmonary disease), Pleural effusion Disposition: ADMITTED IP TO THIS HOSP Condition: Fair Referrals: Harika Cortez MD [Primary Care Provider] - 1-2 days
[2020-09-25 06:35] LABS: Basophils # (A) 0.1 k/uL (0-0.2); Basophils % (A) 1 %; Eosinophils # (A) 0.1 k/uL (0-0.7); Eosinophils % (A) 1 %; HCT 44.3 % (34.0-46.0); HGB 15.2 gm/dL (11.4-16.0); Lymphocytes % (A) 17 %; MCH 33.1 pg (25.0-35.0); MCHC 34.3 g/dL (31.0-37.0); MCV 96.6 fL (80.0-100.0); Mean Platelet Volume 9.5; Monocytes # (A) 0.7 k/uL (0-1.0); Monocytes % (A) 6 %; Neutrophils # (A) 9.1 k/uL (1.3-7.7); Neutrophils % (A) 75 %; Platelet Count 186 k/uL (150-450); RBC 4.58 m/uL (3.80-5.40); RDW 14.1 % (11.5-15.5)
[2020-09-25 06:44] LABS: Partial Thromboplastin Time 23.3 sec (22.0-30.0); Prothrombin Time 10.3 sec (9.0-12.0)
[2020-09-25 06:50] LABS: Albumin 3.9 g/dL (3.5-5.0); Calcium 8.8 mg/dL (8.4-10.2); Potassium 4.7 mmol/L (3.5-5.1); Total Bilirubin 0.7 mg/dL (0.2-1.3); Total Protein 6.4 g/dL (6.3-8.2)
--- NOTE | 2020-09-25 06:57 | XR ---
EXAM: XR Chest, 2 Views CLINICAL HISTORY: ITS.REASON XR Reason: difficulty breathing TECHNIQUE: Frontal and lateral views of the chest. COMPARISON: 03/20/2019 FINDINGS: Lungs: Unremarkable. No consolidation. Pleural space: Blunting of the bilateral costophrenic angles. No pneumothorax. Heart: Unremarkable. No cardiomegaly. Mediastinum: Unremarkable. Bones/joints: Partially visualized anterior approach spinal fusion hardware in the lower cervical spine. IMPRESSION: Blunting of the bilateral costophrenic angles which may be due to small pleural effusions. No consolidations or pneumothorax.
[2020-09-25] MEDS ORDERED: ONDANSETRON 4 MG/2 ML VIAL IVP PRN (07:26)
[2020-09-25] MEDS ORDERED: NALOXONE 0.4 MG/ML 1 ML VIAL IV PRN (07:26)
[2020-09-25] MEDS ORDERED: LORATADINE 10 MG TAB PO PRN (07:27)
[2020-09-25] MEDS: PANTOPRAZOLE 40 MG TABLET PO SCH (07:45)
[2020-09-25] MEDS: ATORVASTATIN 20 MG TAB PO SCH (07:45)
[2020-09-25] MEDS: APIXABAN 5 MG TAB PO SCH ×2 (07:47→20:32)
[2020-09-25] MEDS: SIMETHICONE 80 MG CHEWABLE PO SCH (07:51)
[2020-09-25] MEDS ORDERED: METOPROLOL SUCCINATE (ER) 25 MG TAB.ER.24H PO SCH (09:00)
--- NOTE | 2020-09-25 11:20 | P.CRDCN ---
History of Present Illness Consult date: 09/25/20 Chief complaint: Shortness of breath History of present illness: This is a very pleasant 65-year-old female patient with past medical history sig nificant for paroxysmal atrial fibrillation as well as history of smoking and also hypertension and dyslipidemia and mild nonobstructive coronary artery disease based on heart catheterization was performed in 2019 presented to the hospital complaining of shortness of breath. The patient symptoms started about a week ago when she will wake up in the middle of the night complaining of shortness of breath. In the morning same day she presented to her primary care physician where she will prescribed some inhalers without any improvement. The shortness of breath got worse for the last 24 hours and because of that she decided to come to the hospital. In the hospital she was found to be in A. fib with RVR and subsequently she was started on Cardizem drip. She denies any chest pain or chest discomfort and denies any feeling of heart racing or fluttering or dizziness or lightheadedness or syncope. She stated that she developed lower extremities edema. No also gained some weight. The patient never diagnosed was congestive heart failure before. On physical examination she is clearly in heart failure. She does have diminished breathing sounds bilaterally. She does have also mild bilateral expiratory wheezing. She does have JVD seems to be very significant. The chest x-ray showed bilateral pleural effusion. NT proBNP came in to be elevated. WBCs a slightly elevated. The rest of her blood work overall came in to be unremarkable. Currently she is on Cardizem drip. I'm going to add Lasix to the current medical regimen at 40 mg IV twice a day with continuous perturbing the kidney function and electrolytes. Will obtain an echocardiogram to establish LV function as well. Past Medical History Past Medical History: COPD, CVA/TIA, Hyperlipidemia, Hypertension Additional Past Medical History / Comment(s): SEE DR. TYLER'S H & P. Sucrose intolerance, meningiomas status post 2 surgical resections in 2002 and 2003. History of Any Multi-Drug Resistant Organisms: None Reported Past Surgical History: Cholecystectomy, Hysterectomy Additional Past Surgical History / Comment(s): Neck fusion. Craniotomy 2002,1999 (BENIGN TUMORS). Past Anesthesia/Blood Transfusion Reactions: No Reported Reaction Past Psychological History: No Psychological Hx Reported Smoking Status: Current every day smoker Past Alcohol Use History: Occasional Past Drug Use History: None Reported - Past Family History Father Family Medical History: Coronary Artery Disease (CAD), Deep Vein Thrombosis (DVT), Hyperlipidemia Mother Family Medical History: Coronary Artery Disease (CAD), Hyperlipidemia, Hypertension Medications and Allergies Home Medications Medication Instructions Recorded Confirmed Type Loratadine [Claritin] 10 mg PO HS PRN 03/13/19 09/25/20 History Rosuvastatin Calcium [Crestor] 10 mg PO QAM 03/13/19 09/25/20 History Simethicone [Gas-X] 125 mg PO DAILY 03/13/19 09/25/20 History Estrogens, Conjugated [Premarin] 0.625 mg PO QAM 04/05/20 09/25/20 History Sucraid 8500/Ml Solution 18,000 unit PO AC-BID PRN 04/05/20 09/25/20 History Sucraid 8500unit/Ml 18,000 unit PO ACHS 04/05/20 09/25/20 History Albuterol Nebulized [Ventolin 2.5 mg INHALATION RT-Q8H 09/25/20 09/25/20 History Nebulized] Apixaban [Eliquis] 5 mg PO BID 09/25/20 09/25/20 History Metoprolol Succinate (ER) [Toprol 25 mg PO DAILY 09/25/20 09/25/20 History Xl] Omeprazole [PriLOSEC] 20 mg PO AC-BRKFST 09/25/20 09/25/20 History Allergies Allergy/AdvReac Type Severity Reaction Status Date / Time No Known Allergies Allergy Verified 09/25/20 06:50 Physical Exam Vitals: Vital Signs Temp Pulse Resp BP Pulse Ox 09/25/20 09:40 82 18 131/88 98 09/25/20 07:56 90 16 120/91 100 09/25/20 06:50 89 18 131/90 97 09/25/20 05:50 97.8 F 104 H 22 120/89 98 Intake and Output 09/24/20 09/25/20 09/25/20 22:59 06:59 14:59 Other: Weight 68.946 kg - Constitutional General appearance: no acute distress - Respiratory Respiratory: bilateral: diminished - Cardiovascular Rhythm: irregularly irregular Heart sounds: normal: S1, S2 Results 09/25/20 06:16 09/25/20 06:16 Cardiac Enzymes 09/25/20 09/25/20 Range/Units 06:16 06:16 AST 51 H (14-36) U/L Troponin I <0.012 (0.000-0.034) ng/mL Coagulation 09/25/20 Range/Units 06:16 PT 10.3 (9.0-12.0) sec APTT 23.3 (22.0-30.0) sec CBC 09/25/20 Range/Units 06:16 WBC 12.0 H (3.8-10.6) k/uL RBC 4.58 (3.80-5.40) m/uL Hgb 15.2 (11.4-16.0) gm/dL Hct 44.3 (34.0-46.0) % Plt Count 186 (150-450) k/uL Comprehensive Metabolic Panel 09/25/20 Range/Units 06:16 Sodium 137 (137-145) mmol/L Potassium 4.7 (3.5-5.1) mmol/L Chloride 109 H (98-107) mmol/L Carbon Dioxide 20 L (22-30) mmol/L BUN 15 (7-17) mg/dL Creatinine 0.92 (0.52-1.04) mg/dL Glucose 142 H (74-99) mg/dL Calcium 8.8 (8.4-10.2) mg/dL AST 51 H (14-36) U/L ALT 46 H (4-34) U/L Alkaline Phosphatase 94 (38-126) U/L Total Protein 6.4 (6.3-8.2) g/dL Albumin 3.9 (3.5-5.0) g/dL Current Medications Generic Name Dose Route Start Last Admin Trade Name Freq PRN Reason Stop Dose Admin Albuterol Sulfate 2.5 mg 09/25/20 08:00 Albuterol Nebulized 2.5 Mg/3 Ml INHALATION RT-Q8H [facility] Apixaban 5 mg 09/25/20 09:00 09/25/20 07:47 Apixaban 5 Mg Tab PO 5 mg BID [facility] Administration Atorvastatin Calcium 20 mg 09/25/20 09:00 09/25/20 07:45 Atorvastatin 20 Mg Tab PO 20 mg QAM [facility] Administration Diltiazem HCl 125 mg/ Sodium 125 mls @ 5 mls/hr 09/25/20 06:15 09/25/20 06:27 Chloride IV 5 mg/hr .Q24H [facility] 5 mls/hr Administration 5 MG/HR Loratadine 10 mg 09/25/20 07:27 Loratadine 10 Mg Tab PO HS PRN Allergy Symptoms Metoprolol Succinate 25 mg 09/25/20 09:00 09/25/20 07:45 Metoprolol Succinate (Er) 25 Mg Tab.Er.24h PO 25 mg DAILY [facility] Administration Naloxone HCl 0.2 mg 09/25/20 07:26 Naloxone 0.4 Mg/Ml 1 Ml Vial IV Q2M PRN Opioid Reversal Ondansetron HCl 4 mg 09/25/20 07:26 Ondansetron 4 Mg/2 Ml Vial IVP Q8HR PRN Nausea And Vomiting Pantoprazole Sodium 40 mg 09/25/20 07:30 09/25/20 07:45 Pantoprazole 40 Mg Tablet PO 40 mg AC-BRKFST [facility] Administration Simethicone 120 mg 09/25/20 09:00 09/25/20 07:51 Simethicone 80 Mg Chewable PO 120 mg DAILY [facility] Administration Intake and Output 09/24/20 09/25/20 09/25/20 22:59 06:59 14:59 Other: Weight 68.946 kg 09/25/20 06:16 09/25/20 06:16 Assessment and Plan Assessment: Assessment #1 congestive heart failure exacerbation of unknown etiology at this point #2 atrial fibrillation with RVR #3 known paroxysmal atrial fibrillation #4 hypertension #5 dyslipidemia #6 mild CAD Plan #1 continue Cardizem drip #2 continue oral anticoagulation #3 rule out acute coronary event #4 obtain an echocardiogram was Doppler #5 start the patient on Lasix IV #6 monitor the kidney function and electrolytes
[2020-09-25] MEDS: ALBUTEROL NEBULIZED 2.5 MG/3 ML INHALATION SCH ×3 (13:47→21:55)
--- NOTE | 2020-09-25 14:50 | P.HPIM ---
History of Present Illness Patient is a pleasant 65-year-old female came in with compensative shortness of breath does have history of COPD. Patient cut down smoking to about 4 cigarettes per day patient significantly improved since her admission patient does have history of atrial fibrillation was in A. fib with rapid ventricular rate and chest x-ray did show some pulmonary edema patient was started on Lasix. Patient was started on Cardizem drip as well. Patient had a transesophageal echocardiogram in the past which showed some myxomatous changes in the mitral valves with moderate regurgitation. Patient denied any chest pain patient did have bilateral pedal edema as well which improved at this time. Patient did have JVD chest x-ray showing bilateral pleural effusions along with the increased interstitial markings consistent with CHF patient had a BNP that is elevated. Patient had a normal ejection fraction the past and a repeat echocardiogram is being obtained at this time. Review of Systems REVIEW OF SYSTEMS: CONSTITUTIONAL: No fever, no malaise, no fatigue. HEENT: No recent visual problems or hearing problems. Denied any sore throat. CARDIOVASCULAR: No chest pain, PND, no palpitations, no syncope. PULMONARY: no hemoptysis. GASTROINTESTINAL: No diarrhea, no nausea, no vomiting, no abdominal pain. NEUROLOGICAL: No headaches, no weakness, no numbness. HEMATOLOGICAL: Denies any bleeding or petechiae. GENITOURINARY: Denies any burning micturition, frequency, or urgency. MUSCULOSKELETAL/RHEUMATOLOGICAL: Denies any joint pain, swelling, or any muscle pain. ENDOCRINE: Denies any polyuria or polydipsia. The rest of the 14-point review of systems is negative. Past Medical History Past Medical History: Atrial Fibrillation, Coronary Artery Disease (CAD), Chest Pain / Angina, COPD, CVA/TIA, GERD/Reflux, Hyperlipidemia, Hypertension, Pneumonia Additional Past Medical History / Comment(s): Paroxysmal Afib, mitral regurgitat ion, meningioma removals x 2, TIA, sucrose intolerance, bronchitis, History of Any Multi-Drug Resistant Organisms: None Reported Past Surgical History: Cholecystectomy, Heart Catheterization, Hysterectomy, Orthopedic Surgery Additional Past Surgical History / Comment(s): Craniotomy 2002,1999 (BENIGN TUMORS), CLEO, cervical fusion, colonoscopy, L carpal tunnel release. Past Anesthesia/Blood Transfusion Reactions: No Reported Reaction Smoking Status: Current every day smoker - Past Family History Father Family Medical History: Coronary Artery Disease (CAD), Deep Vein Thrombosis (DVT), Hyperlipidemia, Vascular Disorder Additional Family Medical History / Comment(s): Father is . He had varicose veins Mother Family Medical History: Coronary Artery Disease (CAD), Hyperlipidemia, Hypertension Additional Family Medical History / Comment(s): Mother is . Medications and Allergies Home Medications Medication Instructions Recorded Confirmed Type Loratadine [Claritin] 10 mg PO HS PRN 03/13/19 09/25/20 History Rosuvastatin Calcium [Crestor] 10 mg PO QAM 03/13/19 09/25/20 History Simethicone [Gas-X] 125 mg PO DAILY 03/13/19 09/25/20 History Estrogens, Conjugated [Premarin] 0.625 mg PO QAM 04/05/20 09/25/20 History Sucraid 8500/Ml Solution 18,000 unit PO AC-BID PRN 04/05/20 09/25/20 History Sucraid 8500unit/Ml 18,000 unit PO ACHS 04/05/20 09/25/20 History Albuterol Nebulized [Ventolin 2.5 mg INHALATION RT-Q8H 09/25/20 09/25/20 History Nebulized] Apixaban [Eliquis] 5 mg PO BID 09/25/20 09/25/20 History Metoprolol Succinate (ER) [Toprol 25 mg PO DAILY 09/25/20 09/25/20 History Xl] Omeprazole [PriLOSEC] 20 mg PO AC-BRKFST 09/25/20 09/25/20 History Allergies Allergy/AdvReac Type Severity Reaction Status Date / Time No Known Allergies Allergy Verified 09/25/20 06:50 Physical Exam Vitals: Vital Signs Temp Pulse Resp BP Pulse Ox 09/25/20 13:44 81 16 98 09/25/20 11:51 98.0 F 76 18 131/84 98 09/25/20 09:40 82 18 131/88 98 09/25/20 07:56 90 16 120/91 100 09/25/20 06:50 89 18 131/90 97 09/25/20 05:50 97.8 F 104 H 22 120/89 98 Intake and Output 09/24/20 09/25/20 09/25/20 22:59 06:59 14:59 Other: Weight 68.946 kg 68.946 kg PHYSICAL EXAMINATION: GENERAL: The patient is alert and oriented x3, not in any acute distress. Well developed, well nourished. HEENT: Pupils are round and equally reacting to light. EOMI. No scleral icterus. No conjunctival pallor. Normocephalic, atraumatic. No pharyngeal erythema. No thyromegaly. CARDIOVASCULAR: S1 and S2 present. No murmurs, rubs, or gallops. Elevated JVD he regularly irregular rhythm rate controlled PULMONARY mild expiratory wheezing fairly good air entry into bilateral lung thompson. ABDOMEN: Soft, nontender, nondistended, normoactive bowel sounds. No palpable organomegaly. MUSCULOSKELETAL: No joint swelling or deformity. EXTREMITIES: No cyanosis, clubbing, or pedal edema. NEUROLOGICAL: Gross neurological examination did not reveal any focal deficits. SKIN: No rashes. Results CBC & Chem 7: 09/25/20 06:16 09/25/20 06:16 Labs: Abnormal Lab Results - Last 24 Hours (Table) 09/25/20 09/25/20 Range/Units 06:16 06:16 WBC 12.0 H (3.8-10.6) k/uL Neutrophils # 9.1 H (1.3-7.7) k/uL Chloride 109 H (98-107) mmol/L Carbon Dioxide 20 L (22-30) mmol/L Glucose 142 H (74-99) mg/dL AST 51 H (14-36) U/L ALT 46 H (4-34) U/L Thrombosis Risk Factor Assmnt - Choose All That Apply Any of the Below Risk Factors Present?: Yes Each Factor Represents 1 point: Abnormal pulmonary function (COPD), Serious lung disease incl. pneumonia (< 1month) Other Risk Factors: Yes Each Risk Factor Represents 2 Points: Age 61-74 years Other congenital or acquired thrombophilia - If yes, enter type in comment: No Thrombosis Risk Factor Assessment Total Risk Factor Score: 4 Thrombosis Risk Factor Assessment Level: Moderate Risk Assessment and Plan Plan: -Shortness of breath multifactorial secondary to CHF exacerbation as well as C OPD. Patient has significant improvement since her arrival to ER. -COPD with acute exacerbation patient is currently nonsmoking patient will be started on inhaled steroids and inhalational Treatments. We'll let try to avoid systemic steroids and monitor her. Congestive heart failure exacerbation: Repeat echo cardiac exam being obtained unsure whether patient has started dysfunction of diastolic dysfunction CHF exacerbation can be related to atrial fibrillation. -Atrial fibrillation with rapid ventricular rate on admission heart rate is better controlled now and try to wean off Cardizem and patient will be started on the increased dose of metoprolol. Continue with Eliquis. Patient has his tory of paroxysmal A. fib -Hypertension -hyperlipidemia -Mild coronary artery disease -Nicotine cessation counseling was provided -Mitral regurgitation -TIAs in the past
[2020-09-25] MEDS: METOPROLOL TARTRATE 25 MG TAB PO SCH ×2 (15:47→20:32)
[2020-09-25] MEDS: FUROSEMIDE 10 MG/ML 4 ML VIAL IV SCH (20:32)
[2020-09-25] MEDS: BUDESONIDE 0.5 MG/2 ML NEBU INHALATION SCH (21:55)
[2020-09-26] MEDS: PANTOPRAZOLE 40 MG TABLET PO SCH (06:15)
[2020-09-26 07:53] LABS: HCT 40.9 % (34.0-46.0); HGB 14.1 gm/dL (11.4-16.0); MCH 33.2 pg (25.0-35.0); MCHC 34.6 g/dL (31.0-37.0); MCV 96.1 fL (80.0-100.0); Mean Platelet Volume 9.4; Platelet Count 169 k/uL (150-450); RBC 4.25 m/uL (3.80-5.40); RDW 13.8 % (11.5-15.5); WBC 9.3 k/uL (3.8-10.6)
[2020-09-26 08:22] LABS: Calcium 8.6 mg/dL (8.4-10.2)
[2020-09-26] MEDS: FUROSEMIDE 10 MG/ML 4 ML VIAL IV SCH (08:24)
[2020-09-26] MEDS: SIMETHICONE 80 MG CHEWABLE PO SCH (08:24)
[2020-09-26] MEDS: APIXABAN 5 MG TAB PO SCH (08:24)
[2020-09-26] MEDS: ATORVASTATIN 20 MG TAB PO SCH (08:25)
[2020-09-26] MEDS: METOPROLOL TARTRATE 25 MG TAB PO SCH (08:25)
[2020-09-26] MEDS: IPRATROPIUM-ALBUTEROL 3 ML NEB INHALATION PRN ×2 (08:49→15:56)
[2020-09-26] MEDS: BUDESONIDE 0.5 MG/2 ML NEBU INHALATION SCH (08:49)
[2020-09-26] MEDS: ALBUTEROL NEBULIZED 2.5 MG/3 ML INHALATION SCH ×2 (08:53→15:56)
[2020-09-26] MEDS ORDERED: METOPROLOL TARTRATE 25 MG TAB PO STA (09:41)
--- NOTE | 2020-09-26 11:59 | P.DS ---
Providers Date of admission: 09/25/20 08:47 Attending physician: Kyaw Dia Consults: 09/25/20 07:26 Consult Physician Urgent Consulting Provider: Sonya Helton Consult Reason/Comments: afib rvr Do you want consulting provider notified?: Yes Primary care physician: Harika Cortez [facility] Course: Patient is a pleasant 65-year-old female came in with compensative shortness of breath does have history of COPD. Patient cut down smoking to about 4 cigarettes per day patient significantly improved since her admission patient does have history of atrial fibrillation was in A. fib with rapid ventricular rate and chest x-ray did show some pulmonary edema patient was started on Lasix. Patient was started on Cardizem drip as well. Patient had a transesophageal echocardiogram in the past which showed some myxomatous changes in the mitral valves with moderate regurgitation. Patient denied any chest pain patient did have bilateral pedal edema as well which improved at this time. Patient did have JVD chest x-ray showing bilateral pleural effusions along with the increased interstitial markings consistent with CHF patient had a BNP that is elevated. Patient had a normal ejection fraction the past and a repeat echocardiogram is being obtained at this time. 09/26/2020 Patient wheezing completely resolved patient is able to make patient looks better. Patient heart rate is in 90s increase the dose of metoprolol patient will be discharged on increased dose of metoprolol for rate and fibrillation continue with Eliquis patient is in and out of sinus rhythm and A. fib. Echocardiac exam is still pending patient was treated for heart failure so far echo is not available once the echo results are back patient will be discharged. PHYSICAL EXAMINATION: GENERAL: The patient is alert and oriented x3, not in any acute distress. Well developed, well nourished. HEENT: Pupils are round and equally reacting to light. EOMI. No scleral icterus. No conjunctival pallor. Normocephalic, atraumatic. No pharyngeal erythema. No thyromegaly. CARDIOVASCULAR: S1 and S2 present. No murmurs, rubs, or gallops. PULMONARY: Chest is clear to auscultation, no wheezing or crackles. ABDOMEN: Soft, nontender, nondistended, normoactive bowel sounds. No palpable organomegaly. MUSCULOSKELETAL: No joint swelling or deformity. EXTREMITIES: No cyanosis, clubbing, or pedal edema. NEUROLOGICAL: Gross neurological examination did not reveal any focal deficits. SKIN: No rashes. Assessment and Plan Plan: -Shortness of breath multifactorial secondary to CHF exacerbation as well as COPD. Patient has significant improvement , will be discharged today -COPD with acute exacerbation , patient will be discharged on inhaled steroids will add ipratropium patient already has albuterol at home Congestive heart failure exacerbation: Repeat echo cardiac exam being obtained unsure whether patient has systolic dysfunction of diastolic dysfunction CHF exacerbation can be related to atrial fibrillation. -Atrial fibrillation with rapid ventricular rate on admission heart rate is better controlled now , patient is off Cardizem continue with the increased dose of metoprolol patient is on Eliquis which will be continued -Hypertension -hyperlipidemia -Mild coronary artery disease -Nicotine cessation counseling was provided -Mitral regurgitation -TIAs in the past Patient Condition at Discharge: Fair Plan - Discharge Summary Discharge Rx Participant: No New Discharge Prescriptions: New Furosemide [Lasix] 40 mg PO DAILY #30 tablet Budesonide-Formot 160-4.5 Mcg [Symbicort 160-4.5 Mcg Inhaler] 2 puff INHALATION BID #1 inhaler Potassium Chloride ER [K-Dur 20] 20 meq PO DAILY #30 tab Metoprolol Tartrate [Lopressor] 50 mg PO BID #60 tab Tiotropium Manito [Spiriva] 1 cap INHALATION DAILY #1 device Continue Loratadine [Claritin] 10 mg PO HS PRN PRN Reason: Allergy Symptoms Simethicone [Gas-X] 125 mg PO DAILY Rosuvastatin Calcium [Crestor] 10 mg PO QAM Estrogens, Conjugated [Premarin] 0.625 mg PO QAM Sucraid 8500unit/Ml 18,000 unit PO ACHS Sucraid 8500/Ml Solution 18,000 unit PO AC-BID PRN PRN Reason: Bloating Omeprazole [PriLOSEC] 20 mg PO AC-BRKFST Albuterol Nebulized [Ventolin Nebulized] 2.5 mg INHALATION RT-Q8H Apixaban [Eliquis] 5 mg PO BID Discontinued Metoprolol Succinate (ER) [Toprol Xl] 25 mg PO DAILY Discharge Medication List Loratadine [Claritin] 10 mg PO HS PRN 03/13/19 [History] Rosuvastatin Calcium [Crestor] 10 mg PO QAM 03/13/19 [History] Simethicone [Gas-X] 125 mg PO DAILY 03/13/19 [History] Estrogens, Conjugated [Premarin] 0.625 mg PO QAM 04/05/20 [History] Sucraid 8500/Ml Solution 18,000 unit PO AC-BID PRN 04/05/20 [History] Sucraid 8500unit/Ml 18,000 unit PO ACHS 04/05/20 [History] Albuterol Nebulized [Ventolin Nebulized] 2.5 mg INHALATION RT-Q8H 09/25/20 [History] Apixaban [Eliquis] 5 mg PO BID 09/25/20 [History] Omeprazole [PriLOSEC] 20 mg PO AC-BRKFST 09/25/20 [History] Budesonide-Formot 160-4.5 Mcg [Symbicort 160-4.5 Mcg Inhaler] 2 puff INHALATION BID #1 inhaler 09/26/20 [Rx] Furosemide [Lasix] 40 mg PO DAILY #30 tablet 09/26/20 [Rx] Metoprolol Tartrate [Lopressor] 50 mg PO BID #60 tab 09/26/20 [Rx] Potassium Chloride ER [K-Dur 20] 20 meq PO DAILY #30 tab 09/26/20 [Rx] Tiotropium Manito [Spiriva] 1 cap INHALATION DAILY #1 device 09/26/20 [Rx] Follow up Appointment(s)/Referral(s): Amrik Gomez MD [STAFF PHYSICIAN] - 1 Week Harika Cortez MD [Primary Care Provider] - 3 Days
--- NOTE | 2020-09-26 12:54 | P.PN ---
Subjective Progress Note Date: 09/26/20 HISTORY OF PRESENT ILLNESS: Patient examined this morning at the bedside. Patient denies any chest pain or pressure. She denies shortness of breath. 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 Patient is currently walking around in her room. Patient states she is cleaning the hospital room. Blood pressure 134/74. PHYSICAL EXAM: VITAL SIGNS: Reviewed. GENERAL: Well-developed in no acute distress. NECK: Supple. No JVD or thyromegaly LUNGS: Respirations even and unlabored. Lungs diminished bilaterally. HEART: Mildly tachycardic. Irregular rate and rhythm. S1 and S2 heard. EXTREMITIES: Normal range of motion. No clubbing or cyanosis. Peripheral pulses intact. No lower extremity edema ASSESSMENT: Paroxysmal atrial fibrillation with RVR Acute heart failure, type unknown, echo pending Hypertension Hyperlipidemia Mild coronary artery disease PLAN: Continue current cardiac medications Continue anticoagulation with Eliquis Increase metoprolol to 50 mg twice a day for optimal heart rate control Await results of echocardiogram Nurse practitioner note has been reviewed by physician. Signing provider agrees with the documented findings, assessment, and plan of care. Objective - Vital Signs Vital signs: Vital Signs Temp 98.0 F 09/26/20 12:00 Pulse 106 H 09/26/20 12:00 Resp 16 09/26/20 12:00 BP 134/74 09/26/20 12:00 Pulse Ox 91 L 09/26/20 12:00 Intake & Output 09/25/20 09/26/20 09/26/20 18:59 06:59 18:59 Intake Total 141.667 240 Output Total 1600 Balance 141.667 -1360 Weight 69.4 kg 68.4 kg Intake: Intake, IV Titration 41.667 Amount Diltiazem 125 mg In 41.667 Sodium Chloride 0.9% 100 ml @ 5 MG/HR 5 mls/hr IV .Q24H [facility] Rx#:[id number] Oral 100 240 Output: Urine 1600 Other: # Voids 1 3 - Labs CBC & Chem 7: 09/26/20 07:00 09/26/20 07:00
[2020-09-26] MEDS: DILTIAZEM 125 MG in SODIUM CHLORIDE 0.9% 100 ML IV SCH (13:13)
--- NOTE | 2020-09-26 16:00 | ECHOF ---
Referral Reason:chf MEASUREMENTS -------- HEIGHT: 170.2 cm WEIGHT: 68.0 kg BP: 135/70 IVSd: 1.0 cm (0.6 - 1.1) LVIDd: 5.6 cm (3.9 - 5.3) LVPWd: 1.4 cm (0.6 - 1.1) EDV(Teich): 155 ml IVSs: 1.7 cm LVIDs: 3.4 cm LVPWs: 2.0 cm %IVS Thck: 73 % ESV(Teich): 47 ml EF(Teich): 70 % %FS: 40 % SV(Teich): 109 ml RVIDd: 3.5 cm (< 3.3) IVC: 20.09 mm RA Diam: 4.7 cm LALs A4C: 6.9 cm LAAs A4C: 32.4 cm LAESV A-L A4C: 130 ml LAESV MOD A4C: 120 ml LALs A2C: 6.1 cm LAAs A2C: 29.4 cm LAESV A-L A2C: 121 ml LAESV MOD A2C: 112 ml LAESV(A-L): 133 ml LAESV Index (A-L): 74.51 ml/m Ao Diam: 2.6 cm (2.0 - 3.7) LA Diam: 5.6 cm (2.7 - 3.8) AV Cusp: 1.2 cm (1.5 - 2.6) EPSS: 0.5 cm LVOT Vmax: 0.76 m/s LVOT maxP.32 mmHg AV Vmax: 1.51 m/s AV maxP.12 mmHg AR Vmax: 4.96 m/s AR maxP.32 mmHg AR PHT: 515 ms AR Dec Time: 1776 ms AR Dec Door: 2.8 m/s TR Vmax: 3.39 m/s TR maxP.86 mmHg RAP: 20.00 mmHg RVSP: 65.86 mmHg MV EF SLOPE: 321.93 mm/s (70 - 150) MV EXCURSION: 23.64 mm (> 18.000) FINDINGS -------- Atrial fibrillation. This was a technically adequate study. The left ventricular size is normal. Left ventricular wall thickness is normal. Overall left vent ricular systolic function is low-normal with, an EF between 50 - 55 %. Left ventricular fillimg pre ssure cannot be estimated due to Atrial fibrillation. The right ventricle is mildly enlarged. LA is severely dilated >40 ml/m2 The right atrium is mildly enlarged. Interatrial and interventricular septum intact. The aortic valve is trileaflet and appears structurally normal. There is mild aortic regurgitation. Fvvuhuqd-[id number] mitral regurgitation is present. Severe tricuspid regurgitation present. There is moderate pulmonary hypertension. The right ventr icular systolic pressure, as measured by Doppler, is 65.86mmHg. There is no pulmonic regurgitation present. The aortic root size is normal. The inferior vena cava is dilated with poor inspiratory collapse which is consistent with estimated r ight atrial pressure of 20 mmHg. There is no pericardial effusion. CONCLUSIONS -------- 1. The left ventricular size is normal. 2. Left ventricular wall thickness is normal. 3. Overall left ventricular systolic function is low-normal with, an EF between 50 - 55 %. 4. Left ventricular fillimg pressure cannot be estimated due to Atrial fibrillation. 5. The right ventricle is mildly enlarged. 6. LA is severely dilated >40 ml/m2 7. The right atrium is mildly enlarged. 8. There is mild aortic regurgitation. 9. Inhuctch-ju-xwbovq mitral regurgitation is present. 10. Severe tricuspid regurgitation present. 11. There is moderate pulmonary hypertension. 12. The right ventricular systolic pressure, as measured by Doppler, is 65.86mmHg. 13. The inferior vena cava is dilated with poor inspiratory collapse which is consistent with estimat ed right atrial pressure of 20 mmHg. POCKET MARKER: Sherri Greene RDCS
[2020-09-26 17:18] VITALS: BP 143/95; PULSE 68; RESP 20; TEMP 97.8
[2020-09-26] MEDS ORDERED: METOPROLOL TARTRATE 50 MG TAB PO SCH (21:00)
== END 2020-09-26 18:36 | disposition home or self-care (01) | DRG 292 ==
LOC: EC 05:45 → 3SCARD 08:47
PROVIDERS: ADMIT Hospitalist; ATTEND Hospitalist
DX: I11.0 Hypertensive heart disease with heart failure (principal); J44.1 Chronic obstructive pulmonary disease with (acute) exacerbation; J81.1 Chronic pulmonary edema; Z86.73 Personal history of transient ischemic attack (TIA), and cerebral infarction without residual deficits; E78.5 Hyperlipidemia, unspecified; I25.10 Atherosclerotic heart disease of native coronary artery without angina pectoris; Z20.822 Contact with and (suspected) exposure to COVID-19; K21.9 Gastro-esophageal reflux disease without esophagitis; Z98.1 Arthrodesis status; Z90.710 Acquired absence of both cervix and uterus; Z86.011 Personal history of benign neoplasm of the brain; F17.210 Nicotine dependence, cigarettes, uncomplicated; Z71.6 Tobacco abuse counseling; I50.9 Heart failure, unspecified; I48.0 Paroxysmal atrial fibrillation; Z79.01 Long term (current) use of anticoagulants; I34.0 Nonrheumatic mitral (valve) insufficiency; E74.31 Sucrase-isomaltase deficiency; Z87.01 Personal history of pneumonia (recurrent)
CPT/HCPCS: 36415; 71046; 80048; 80053; 83605; 83735; 83880; 84484; 85025; 85027; 85610; 85730; 87635; 93005; 93306; 94640; 94760; 96374; 99291

== ENCOUNTER → 2020-11-14 | Day surgery (SDC) | payer BC ==
[2020-11-13 08:36] VITALS: BMI 23.3
[~2020-11-14] MED LIST changes: +ALBUTEROL NEBULIZED 2.5 MG/3 ML INHALATION SCH; -ALPRAZolam 0.25 MG TAB PO PRN; -ALPRAZolam 0.5 MG TAB PO PRN; +AMIODARONE 200 MG TAB PO SCH; +APIXABAN 5 MG TAB PO SCH; -ASPIRIN 325 MG TAB PO STA; -ATORVASTATIN 80 MG TAB PO STA; +ESTROGENS, CONJUGATED 0.625 MG TAB PO SCH; +FUROSEMIDE 40 MG TAB PO SCH; +LACTATED RINGERS 1,000 ML IV SCH; +LIDOCAINE 1% INJ 10MG/ML (20 ML MDV) ONE; +LORATADINE 10 MG TAB PO PRN; +METOPROLOL TARTRATE 50 MG TAB PO SCH; -NITROGLYCERIN SL TABS 0.4 MG TAB SUBLINGUAL PRN; +NON FORMULARY DRUG (Omeprazole 20 MG Capsule.Dr) PO SCH; +NON FORMULARY DRUG (Rosuvastatin Calcium [Crestor] 10 MG Tablet) PO SCH; +POTASSIUM CHLORIDE ER 20 MEQ TAB.ER PO SCH; +PROPOFOL 10 MG/ML 20 ML VIAL IV ONE; +SIMETHICONE 125 MG PO SCH; +SODIUM CHLORIDE 0.9% 1,000 ML IV SCH; -SODIUM CHLORIDE 0.9% 1,000 ML in EMPTY BAG 1 BAG IV ONE; +SYMBICORT 160-4.5 MCG INHALER INHALATION SCH; +[UNRECOGNIZED DRUG - OTHER] PO SCH
[2020-11-14 06:48] LABS: Calcium 9.1 mg/dL (8.4-10.2); Potassium 4.6 mmol/L (3.5-5.1)
[2020-11-14 08:01] VITALS: TEMP 98
--- NOTE | 2020-11-14 09:07 | ECHOT ---
TRANSESOPHAGEAL ECHOCARDIOGRAM INDICATION: Evaluation of left atrial appendage. PROCEDURE: After explaining the procedure to the patient, risks and complications, blood pressure, heart rate, O2 saturation was monitored. The throat was sprayed with Cetacaine. She received sedation per Anesthesia Department. The probe was introduced into the esophagus without difficulty. Images were obtained. Following that, the probe was removed. There were no immediate complications. Patient was returned to her room in stable condition. FINDINGS: The left atrial size is dilated. Right atrial size is dilated. Left atrial appendage is normal. LV size is normal. There is mild global hypokinesis. Estimated ejection fraction 40% to 55%. The aortic valve revealed mild fibrocalcific change with aortic cusp. The mitral valve revealed thickening of the mitral valve leaflets. Tricuspid valve is normal. Descending thoracic aorta revealed mild atherosclerotic changes. No pericardial effusion was noted. Contrast bubble study revealed late minimal shunting across the interatrial septum. Doppler pulse wave and color Doppler obtained, revealed moderate severe mitral and tricuspid regurgitation. There was moderate aortic regurgitation. There was no shunting by color Doppler study. CONCLUSION: 1. Bi-atrial enlargement. 2. Normal appearance of left atrial appendage. 3. Normal left ventricular size with mild global hypokinesis. 4. Thickened mitral valve leaflets with moderate to severe mitral regurgitation. 5. Moderate tricuspid regurgitation. The estimated right ventricular systolic pressure is 40-45 mmHg. 6. Moderate aortic regurgitation. 7. Late shunting across the interatrial septum with contrast bubble study. 8. No pericardial effusion. MMODL / IJN: [id number] / DEBORA
--- NOTE | 2020-11-14 09:16 | CE ---
CARDIAC ELECTROPHYSIOLOGY REPORT CARDIOVERSION: INDICATION: Atrial fibrillation. PROCEDURE: After explaining the procedure to the patient, risks and the complications, blood pressure, heart rate, O2 saturation was monitored. After obtaining sedated state, a synchronized biphasic cardioversion using 200 joules was performed with synagogue of normal sinus rhythm. There was no immediate complication. DILLON / JOSI: [id number] /
[2020-11-14 13:59] VITALS: BP 108/51; PULSE 52; RESP 16
== END | disposition home or self-care (01) ==
LOC: CATHCVL 06:07
PROVIDERS: ATTEND Internal Medicine Interventional Cardiology
DX: I08.1 Rheumatic disorders of both mitral and tricuspid valves (principal); I48.91 Unspecified atrial fibrillation; E78.5 Hyperlipidemia, unspecified; I10 Essential (primary) hypertension; Z86.73 Personal history of transient ischemic attack (TIA), and cerebral infarction without residual deficits; Z79.01 Long term (current) use of anticoagulants
CPT/HCPCS: 93312; 93320; 93325; 92960; 80048; J2001; J2704

== ENCOUNTER 2021-03-17 12:58 | Day surgery (SDC) | payer BC, MEDICARE ==
[2021-03-13 11:51] VITALS: BMI 22.7
[~2021-03-17 12:58] MED LIST changes: -ALBUTEROL NEBULIZED 2.5 MG/3 ML INHALATION SCH; -AMIODARONE 200 MG TAB PO SCH; -APIXABAN 5 MG TAB PO SCH; -ESTROGENS, CONJUGATED 0.625 MG TAB PO SCH; -FUROSEMIDE 40 MG TAB PO SCH; +HYDROmorphone 0.5 MG/0.5 ML SYRINGE IVP PRN; -LIDOCAINE 1% INJ 10MG/ML (20 ML MDV) ONE; -LORATADINE 10 MG TAB PO PRN; -METOPROLOL TARTRATE 50 MG TAB PO SCH; +MIDAZOLAM 2 MG/2 ML VIAL IV PRN; -NON FORMULARY DRUG (Omeprazole 20 MG Capsule.Dr) PO SCH; -NON FORMULARY DRUG (Rosuvastatin Calcium [Crestor] 10 MG Tablet) PO SCH; -POTASSIUM CHLORIDE ER 20 MEQ TAB.ER PO SCH; -PROPOFOL 10 MG/ML 20 ML VIAL IV ONE; -SIMETHICONE 125 MG PO SCH; -SYMBICORT 160-4.5 MCG INHALER INHALATION SCH; -[UNRECOGNIZED DRUG - OTHER] PO SCH
[2021-03-17] MEDS ORDERED: LIDOCAINE 1% INJ 10MG/ML (20 ML MDV) ONE ×2 (13:47→14:11)
[2021-03-17] MEDS ORDERED: MIDAZOLAM 2 MG/2 ML VIAL ONE (14:11)
[2021-03-17] MEDS ORDERED: SUCCINYLCHOLINE CHLORIDE 100 MG/5 ML SYR IV ONE (14:11)
[2021-03-17] MEDS ORDERED: DEXAMETHASONE SOD PHOSPHATE 10 MG/ML 1 ML VIAL ONE (14:11)
[2021-03-17] MEDS ORDERED: ETOMIDATE 2 MG/ML 10 ML VIAL ONE (14:11)
[2021-03-17] MEDS ORDERED: PHENYLEPHRINE-0.9% NACL SYG 1,000 MCG/10 ML SYRINGE ONE (14:11)
[2021-03-17] MEDS ORDERED: ROCURONIUM 10 MG/ML (5 ML VIAL) IV ONE (14:11)
[2021-03-17] MEDS ORDERED: fentaNYL (PF) 50 MCG/ML 2 ML AMP ONE (14:11)
[2021-03-17] MEDS ORDERED: GLYCOPYRROLATE 0.2 MG/ML 2 ML VIAL ONE (14:11)
[2021-03-17] MEDS ORDERED: PROTAMINE SULFATE 10 MG/ML 5 ML VIAL IV ONE (14:11)
[2021-03-17] MEDS ORDERED: ONDANSETRON 4 MG/2 ML VIAL ONE (14:11)
[2021-03-17] MEDS ORDERED: HEPARIN SODIUM,PORCINE 5,000 UNIT/ML 1 ML VIAL ONE (14:11)
[2021-03-17] MEDS ORDERED: NEOSTIGMINE 1 MG/ML 10 ML VIAL ONE (14:11)
--- NOTE | 2021-03-17 14:29 | P.HPCAR ---
History of Present Illness This is Dr. Gomez dictating an H/P on this patient The patient was interviewed and examined IMPRESSION / ASSESSMENT: Persistent atrial fibrillation, symptomatic 3+ mitral regurgitation, 2+ tricuspid regurgitation Mild CAD PLAN: Pulmonary vein isolation Linear ablation Continue ELIQUIS HPI Shortness of breath on exertion during atrial fibrillation History of A. fib with RVR Successful electrical cardioversion to sinus rhythm in October Recurrence of atrial fibrillation on amiodarone Complains of being tired fatigued lack of energy ROS: No fever chills or rigors, no cough, phlegm or expectoration, no nausea, vomiting or diarrhea, no hematuria, dysuria, no musculoskeletal complaints, no strokes or seizures, no skin lesions. EXAMINATION: Afebrile 97.5F pulse rate in the 80s, blood pressure 132/73 mmHg No JVD Soft systolic murmur over the precordium Clear lungs no rhonchi no crackles No lower extremity edema Femoral pulses well palpable REVIEW OF LABS, ECG & MEDICAL DATA CLEO revealed mild global hypokinesis 3+ mitral regurgitation, 2+ tricuspid regurgitation, RVSP 40 mmHg 2+ aortic regurgitation Past medical history of paroxysmal atrial fibrillation hypertension smoking dyslipidemia and mild nonobstructive CAD Past history of TIA Physical Exam Vitals: Vital Signs Temp Pulse Resp BP Pulse Ox 03/17/21 13:26 97.5 F L 85 18 132/73 92 L Intake and Output 03/16/21 03/17/21 03/17/21 22:59 06:59 14:59 Intake Total 100 Balance 100 Intake: IV 100 Past Medical History Past Medical History: Atrial Fibrillation, Asthma, Coronary Artery Disease (CAD), Chest Pain / Angina, Heart Failure, COPD, CVA/TIA, GERD/Reflux, Hyperlipidemia, Hypertension, Pneumonia Additional Past Medical History / Comment(s): mitral regurgitation, meningioma removals x 2, TIA 01/2019-no residual effects, sucrose intolerance, History of Any Multi-Drug Resistant Organisms: None Reported Past Surgical History: Appendectomy, Cholecystectomy, Heart Catheterization, Hysterectomy, Orthopedic Surgery Additional Past Surgical History / Comment(s): BRAIN SURGERY 2002,2004 (BENIGN TUMORS), CLEO, cervical fusion, colonoscopy, L carpal tunnel release. Past Anesthesia/Blood Transfusion Reactions: No Reported Reaction Smoking Status: Current every day smoker - Past Family History Father Family Medical History: Deep Vein Thrombosis (DVT) Additional Family Medical History / Comment(s): . Mother Family Medical History: Coronary Artery Disease (CAD), Hyperlipidemia, Hypertension Additional Family Medical History / Comment(s): Mother is . Physical Examination Vital Signs Temp Pulse Resp BP Pulse Ox 03/17/21 13:26 97.5 F L 85 18 132/73 92 L Intake and Output 03/16/21 03/17/21 03/17/21 22:59 06:59 14:59 Intake Total 100 Balance 100 Intake: IV 100 Results Current Medications Generic Name Dose Route Start Last Admin Trade Name Freq PRN Reason Stop Dose Admin Hydromorphone HCl 0.5 mg 03/17/21 07:00 Hydromorphone 0.5 Mg/0.5 Ml Syringe IVP 03/17/21 23:00 Q5M PRN Phase I - Pain Control Sodium Chloride 1,000 mls @ 20 mls/hr 03/17/21 06:05 03/17/21 13:28 Saline 0.9% IV 04/16/21 06:06 100 mls .Q24H [facility] Administration Lactated Ringer's 1,000 mls @ 20 mls/hr 03/17/21 06:05 Lactated Ringers IV 04/16/21 06:06 .Q24H [facility] Midazolam HCl 2 mg 03/17/21 06:05 Midazolam 2 Mg/2 Ml Vial IV 03/17/21 23:00 ONCE PRN Pre-Op Anxiety Intake and Output 03/16/21 03/17/21 03/17/21 22:59 06:59 14:59 Intake Total 100 Balance 100 Intake: IV 100
[2021-03-17] MEDS ORDERED: LIDOCAINE 1% INJ 10MG/ML (20 ML MDV) SQ ONE (14:48)
[2021-03-17] MEDS ORDERED: HEPARIN SOD,PORK IN 0.45% NACL 25,000 UNIT in 0.45% NACL 1 250ML.BAG IV ONE (14:53)
[2021-03-17] MEDS ORDERED: HEPARIN SODIUM (1,000 UNIT/ML) 1,000 UNIT in SODIUM CHLORIDE 0.9% 1,000 ML IRRIGATION ONE (14:54)
[2021-03-17] MEDS ORDERED: IOPAMIDOL-370 100ML BTL INJ ONE (16:25)
[2021-03-17] MEDS ORDERED: ACETAMINOPHEN IV (For NPO) 1,000 MG in EMPTY BAG 1 BAG IVPB ONE (17:34)
[2021-03-17] MEDS ORDERED: ACETAMINOPHEN TAB 325 MG TAB PO PRN (17:34)
--- NOTE | 2021-03-17 17:42 | P.PRLE ---
RE: Kathryn Fuentes Dear Harikagina Peralta underwent in A. fib ablation with pulmonary vein isolation and linear ablation of the septum She has a significantly enlarged right and left atria She will continue ELIQUIS as well as oral amiodarone and follow with you and Dr. Helton as before for her valvular heart disease On intracardiac echo there was evidence of pericardial thickening with a small effusion and febrile was material material especially over the left ventricle consistent with a prior pericarditis Thank you for entrusting me with the care of the patient Warm regards Sincerely Amrik Gomez
--- NOTE | 2021-03-17 17:52 | P.EPPROC ---
- EP Procedure Note Electrophysiology Procedure Note: Intraoperative findings at EP study Significantly enlarged right atrium Significantly enlarged left atrium Pericardial thickening especially over the left ventricular base with febrile was material in the pericardium Small pericardial effusion preoperatively Phrenic nerve stimulation on the right side resulted in fairly weak contraction of the right diaphragm Consideration for a viral infection that resulted in phrenic nerve paresis and pericarditis
--- NOTE | 2021-03-17 18:01 | P.EPPROC ---
- EP Procedure Note Electrophysiology Procedure Note: PROCEDURE A. fib ablation DIAGNOSIS Atrial fibrillation, symptomatic, refractory to therapy Persistent RESULT No left atrial appendage mass seen on intracardiac echo Significantly enlarged right and left atria Pericardial thickening with small pericardial effusion and fibrinous material es pecially at the base of the LV, noted preoperatively Weak diaphragmatic contraction in the right side with a right phrenic nerve stimulation, preoperatively that remained stable postoperatively Successful A. fib ablation/pulmonary vein isolation of all veins using cryo- ablation Complete entrance block in all 4 veins confirmed Linear ablation in the left atrial septum The patient would transition back and forth from atrial fibrillation to a relatively organized rhythm with eccentric coronary sinus activation after PVI Left atrial roof dimension 4 cm Mitral isthmus dimension 3.8 cm No ablation performed at the sites Esophageal deflection YES , right-sided esophagus Electrical cardioversion with a synchronized shock across the chest YES PROCEDURE DETAILS Patient was brought to the EP lab in a fasting state. Written informed consent was obtained prior to the procedure. Procedure performed under general anesthesia After initial muscle relaxant use, muscle relaxants were not given thereafter in order to assess phrenic nerve during procedure. Patient prepped and draped as per protocol Full cryo-set up with standard preparation of the cryoablation tools done. Femoral Venous access obtained on the right and left groins Venous and arterial Sheaths placed. Diagnostic catheters for the high right atrium, phrenic nerve stimulation and pacing, His bundle, RV and coronary sinus placed Intracardiac echo catheter placed. Long sheath placed in the right atrium Left and right transseptal catheterization performed under intracardiac echo guidance. Intravenous heparin with aCT above 300 Later, catheter positioning and balloon positioning in the left atrium, under intracardiac echo guidance Diagnostic EP study with Coronary sinus pacing and recording Baseline measurements QRS 108 ms, VA interval 136 ms QT 326 ms HRA 43 ms Atrial pacing performed from the high right atrium and the coronary sinus Sinus recovery times at 600, 540 ms were 1483, 1421 and 05/05/2003 milliseconds AV node Wenckebach block 440 ms Transseptal catheterization performed RA pressure 21/13/18 LA pressure 26/11/19 Transseptal catheterization performed with standard sheath. The cryoablation sheath was then placed with an over the wire exchange without any acute complications. All 4 pulmonary veins were isolated in the following sequence: Left superior followed by left inferior followed by right superior followed by right inferior The cryo-ablation balloon was placed at the os of each vein 1.5 mL of IV dye was injected to confirm an occluded vein Goal during cryoablation was to achieve complete occlusion of the pulmonary vein, achieve -30 degrees C at 30 seconds and achieve -40 degrees C at 60 seconds and a time to effect of less than 60-90 seconds, . If not the balloon was repositioned to obtain this result After completion of Cryoblation with durations from 180-240 seconds, entrance block was confirmed with the Attain circular catheter in a roving fashion around the antrum of the pulmonary veins Phrenic nerve pacing was performed from the SVC, right innominate vein area and diaphragm voltage was monitored. Diaphragmatic contractions were also monitored manually for strength of contraction. Parameter goals for each cryo freeze Complete occlusion of the appropriate vein -30 degrees C by 30 seconds -40 degrees C by 60 seconds Minimum between minus 40-55 degrees C Thaw time greater than 10 seconds Balloon visualized by intracardiac echo The esophagus was intubated. Esophageal Temperature monitoring with a CIRCA catheter formed. Esophageal deflection for hypothermia of the esophagus below 30 degrees C Left superior pulmonary vein Complete isolation, entrance block Left inferior pulmonary vein Complete isolation, entrance block Right superior pulmonary vein, during phrenic nerve pacing Complete isolation, entrance block Right inferior pulmonary vein, during phrenic nerve pacing Complete isolation, entrance block At the end of the procedure the Achieve catheter was once again used to check for entrance block Phrenic nerve stimulation was performed to confirm diaphragmatic stimulation the end of the procedure Cine fluoroscopy was performed at the very end of the procedure to confirm movement of right diaphragms with inspiration and expiration Week contraction noted preoperatively and unchanged postoperatively 3-D electro anatomic mapping was performed with an RF ablation catheter The veins were completely isolated Linear ablation was performed outside the ashley, in the septum of the left atrium, posterior to the fossa ovalis Left atrial roof measured 4 cm Mitral isthmus. 3.8 cm No ablation was performed at the sites At the end of the procedure the patient was extubated Heparin was reversed Venous sheaths were removed and hemostasis assured PROCEDURES PERFORMED Diagnostic EP study CS pacing and recording Left and right transseptal catheterization 3D mapping) Intracardiac echocardiography Pulmonary vein isolation with transseptal and comprehensive EPS, [id number] Linear ablation, left atrium, [id number] Electrical cardioversion with a synchronized shock across the chest [id number]
--- NOTE | 2021-03-17 18:04 | P.PRLE ---
RE: Kathryn Fuentes Dear Harika Peralta underwent in A. fib ablation for persistent symptomatic atrial fibrillation However both her right and left atria a significantly enlarged on account of valvular heart disease In addition to findings were noted at EP study #1 there was evidence of pericardial thickening with a small pericardial effusion and fibrinous material around the left ventricle especially the left ventricular pace, consistent with prior pericarditis #2 right phrenic nerve stimulation resulted in a very weak diaphragmatic contraction, noted prior to ablation, that remained stable postprocedure I wonder if she had a viral infection that resulted in pericarditis and phrenic nerve paresis that worsened her symptoms of shortness of breath and atrial fibrillation In any case she will continue ELIQUIS and amiodarone and she'll follow with you and Dr. Helton for her valvular heart disease Thank you for entrusting me with the care of the patient Warm regards Sincerely Amrik Gomez
[2021-03-17 18:23] VITALS: RESP 16
[2021-03-17] MEDS ORDERED: AMIODARONE 200 MG TAB PO SCH (21:00)
[2021-03-17] MEDS: METOPROLOL TARTRATE 25 MG TAB PO SCH (21:20)
[2021-03-17] MEDS: APIXABAN 5 MG TAB PO SCH (21:20)
[2021-03-17] MEDS ORDERED: ALBUTEROL NEBULIZED 2.5 MG/3 ML INHALATION PRN (21:20)
[2021-03-18 02:44] VITALS: TEMP 97.6
[2021-03-18] MEDS: METOPROLOL TARTRATE 25 MG TAB PO SCH (06:17)
[2021-03-18 06:55] VITALS: BP 103/65; PULSE 58
[2021-03-18] MEDS: APIXABAN 5 MG TAB PO SCH (07:08)
[2021-03-18] MEDS ORDERED: PANTOPRAZOLE 40 MG TABLET PO SCH (07:30)
[2021-03-18] MEDS ORDERED: MAGNESIUM OXIDE 400 MG TAB PO STA (07:33)
--- NOTE | 2021-03-18 07:48 | P.DS ---
Providers Attending physician: Amrik Gomez Primary care physician: Harika Cortez [facility] Course: Patient is resting comfortably in bed She denies any fever chills cough expectoration or shortness of breath No chest discomfort She turned out to be COVID Positive Groins have healed well Sutures removed Twelve-lead EKG shows sinus bradycardia with a prolonged absolute QT interval with T-wave inversions Intracardiac echo suggested normal LV function, evidence of pericarditis with small pericardial effusion and fibrinous material in the pericardium especially the base of the LV Systemic nerve paresis was noted laterally, before the ablation she This is consistent with viral etiology Suggest discharge home Continue ELIQUIS Reduce metoprolol to 12.5 g twice daily Reduce amiodarone to 100 mg by mouth daily Continue oral potassium Mag oxide 400 mg daily Follow-up in the office after 2 weeks Patient instructions given She is not in any QT prolonging medications Patient Condition at Discharge: Stable Plan - Discharge Summary Discharge Rx Participant: No New Discharge Prescriptions: Continue RX: Loratadine [Claritin] 10 mg PO HS PRN PRN Reason: Allergy Symptoms RX: Simethicone [Gas-X] 125 mg PO DAILY RX: Rosuvastatin Calcium [Crestor] 10 mg PO QAM RX: Estrogens, Conjugated [Premarin] 0.625 mg PO QAM Sucraid 8500/Ml Solution 2 ml PO AC-BID RX: Omeprazole [PriLOSEC] 20 mg PO AC-BRKFST RX: Furosemide [Lasix] 40 mg PO DAILY #30 tablet RX: Budesonide-Formot 160-4.5 Mcg [Symbicort 160-4.5 Mcg Inhaler] 2 puff INHALATION BID #1 inhaler RX: Metoprolol Tartrate [Lopressor] 25 mg PO BID #60 tab RX: Albuterol Nebulized [Ventolin Nebulized] 2.5 mg INHALATION RT-Q8H RX: Apixaban [Eliquis] 5 mg PO BID RX: Potassium Chloride ER [K-Dur 20] 20 meq PO DAILY #30 tab RX: Amiodarone HCl [Pacerone] 200 mg PO HS Discharge Medication List RX: Loratadine [Claritin] 10 mg PO HS PRN 03/13/19 [History] RX: Rosuvastatin Calcium [Crestor] 10 mg PO QAM 03/13/19 [History] RX: Simethicone [Gas-X] 125 mg PO DAILY 03/13/19 [History] RX: Estrogens, Conjugated [Premarin] 0.625 mg PO QAM 04/05/20 [History] Sucraid 8500/Ml Solution 2 ml PO AC-BID 04/05/20 [History] RX: Albuterol Nebulized [Ventolin Nebulized] 2.5 mg INHALATION RT-Q8H 09/25/20 [History] RX: Apixaban [Eliquis] 5 mg PO BID 09/25/20 [History] RX: Omeprazole [PriLOSEC] 20 mg PO AC-BRKFST 09/25/20 [History] RX: Budesonide-Formot 160-4.5 Mcg [Symbicort 160-4.5 Mcg Inhaler] 2 puff INHALATION BID #1 inhaler 09/26/20 [Rx] RX: Furosemide [Lasix] 40 mg PO DAILY #30 tablet 09/26/20 [Rx] RX: Potassium Chloride ER [K-Dur 20] 20 meq PO DAILY #30 tab 09/26/20 [Rx] RX: Amiodarone HCl [Pacerone] 200 mg PO HS 11/13/20 [History] RX: Metoprolol Tartrate [Lopressor] 25 mg PO BID #60 tab 11/14/20 [Rx] Follow up Appointment(s)/Referral(s): Sonya Helton MD [STAFF PHYSICIAN] - 2 Weeks Patient Instructions/Handouts: *Surgery [facility] - After Heart Catheterization - Behavioral Health Professional Instructions Activity/Diet/Wound Care/Special Instructions: Post EP study - Ablation instructions 1. Keep access sites dry for 2 days. 2. No heavy lifting or straining for 2 days. 3. Avoid bending the hips repeatedly for 2 days. 4. You may go up and down stairs slowly Call if the following is noted 1. Bleeding, increasing swelling or pain at the access sites. 2. Increasing chest discomfort, especially upon taking a deep breath. 3. Increasing shortness of breath, at rest or with exertion. 4. Undue cough / phlegm 5. Difficulty or pain while swallowing. 6. Pain or change in color in the extremities. 7. Fever, chills, rigors. 8. Increasing headache or neurologic symptoms. 9. Dizziness, fainting, palpitations Discharge Disposition: HOME SELF-CARE
[2021-03-18] MEDS ORDERED: ALBUTEROL NEBULIZED 2.5 MG/3 ML INHALATION SCH ×2 (08:00)
[2021-03-18] MEDS ORDERED: FUROSEMIDE 40 MG TAB PO SCH (09:00)
[2021-03-18] MEDS ORDERED: POTASSIUM CHLORIDE ER 20 MEQ TAB.ER PO SCH (09:00)
[2021-03-18] MEDS ORDERED: ATORVASTATIN 20 MG TAB PO SCH (09:00)
== END 2021-03-18 09:07 | disposition home or self-care (01) ==
LOC: CATHEP 12:58 → 6NMEDSUR 17:19 → CATHEP 03-18 09:07
PROVIDERS: ATTEND Internal Medicine Clinical Cardiac Electrophysiology
DX: I48.11 Longstanding persistent atrial fibrillation (principal); I08.3 Combined rheumatic disorders of mitral, aortic and tricuspid valves; U07.1 COVID-19; I31.3 Pericardial effusion (noninflammatory); I25.119 Atherosclerotic heart disease of native coronary artery with unspecified angina pectoris; I11.0 Hypertensive heart disease with heart failure; I50.9 Heart failure, unspecified; R01.1 Cardiac murmur, unspecified; I10 Essential (primary) hypertension; E78.5 Hyperlipidemia, unspecified; K21.9 Gastro-esophageal reflux disease without esophagitis; J44.9 Chronic obstructive pulmonary disease, unspecified; E74.31 Sucrase-isomaltase deficiency; F17.210 Nicotine dependence, cigarettes, uncomplicated; Z87.01 Personal history of pneumonia (recurrent); Z85.841 Personal history of malignant neoplasm of brain; Z86.73 Personal history of transient ischemic attack (TIA), and cerebral infarction without residual deficits; Z90.49 Acquired absence of other specified parts of digestive tract; Z90.710 Acquired absence of both cervix and uterus; Z98.1 Arthrodesis status; Z98.890 Other specified postprocedural states; Z82.49 Family history of ischemic heart disease and other diseases of the circulatory system; Z83.438 Family history of other disorder of lipoprotein metabolism and other lipidemia; Z79.01 Long term (current) use of anticoagulants; Z79.899 Other long term (current) drug therapy; Z79.51 Long term (current) use of inhaled steroids
CPT/HCPCS: 92960; 93662; 93613; 93656; 93657; 87635; C1759; C1894 ×2; C1769 ×3; C1760; C1730 ×2; C1893; C1733; C1766; C1732; J2250; J2720; J1644 ×3; J1100; J2710; J2405; J2001; J3010; J0131; J2370; J0330; Q9967

== ENCOUNTER 2021-03-20 11:12 | Emergency (ER) | payer BC, MEDICARE ==
[2021-03-20 11:22] VITALS: TEMP 98.3
--- NOTE | 2021-03-20 12:45 | XR ---
EXAMINATION TYPE: XR chest 1V portable DATE OF EXAM: 03/20/2021 COMPARISON: 09/25/2020 HISTORY: Chest pain TECHNIQUE: Single frontal view of the chest is obtained. FINDINGS: Surgical change overlying the cervical spine is a diffuse interstitial pattern with cardio megaly and small bilateral effusions and basilar infiltrate. Diffuse osteopenia. Arthropathy of the s houlders. IMPRESSION: 1. Persistent interstitial pattern with reduction in the size of consolidation and pleural fluid. Cor relate for improving CHF or interstitial pneumonitis.
[2021-03-20 12:49] LABS: Basophils % (A) 0 %; Eosinophils % (A) 0 %; HCT 40.3 % (34.0-46.0); HGB 13.8 gm/dL (11.4-16.0); Lymphocytes # (A) 0.7 k/uL (1.0-4.8); Lymphocytes % (A) 5 %; MCH 32.6 pg (25.0-35.0); MCHC 34.3 g/dL (31.0-37.0); Mean Platelet Volume 8.7; Monocytes # (A) 0.4 k/uL (0-1.0); Monocytes % (A) 3 %; Neutrophils # (A) 12.5 k/uL (1.3-7.7); Neutrophils % (A) 91 %; Platelet Count 301 k/uL (150-450); RBC 4.24 m/uL (3.80-5.40); RDW 13.3 % (11.5-15.5); WBC 13.8 k/uL (3.8-10.6)
[2021-03-20 13:11] LABS: INR 1.3 (<1.2); Partial Thromboplastin Time 27.5 sec (22.0-30.0); Prothrombin Time 13.1 sec (9.0-12.0)
--- NOTE | 2021-03-20 13:14 | ED ---
SOB HPI - General Chief Complaint: Shortness of Breath Stated Complaint: Low Oxygen/Covid+ Source: patient, family Mode of arrival: wheelchair Limitations: no limitations - History of Present Illness Initial Comments: 65-year-old female presents to the emergency department with shortness of breath. Patient is Covid positive. She was here on the for an ablation by Dr. Gomez. For surgery she had her preop swab performed and found out that she is positive. She was not having any symptoms at that time. Reports today that she is having increased shortness of breath. She can't walk across a room without getting short of breath. Also admits to cough and fatigue. She has chest pain from coughing so much. She checked her pulse ox at home and it was noted to be in the 80s and therefore she came in. She has not received any treatment for her Covid yet. Denies any nausea, vomiting or diarrhea. No fevers. No other alleviating, precipitating or modifying factors - Related Data Home Medications Medication Instructions Recorded Confirmed Loratadine [Claritin] 10 mg PO HS PRN 03/13/19 03/20/21 Rosuvastatin Calcium [Crestor] 10 mg PO QAM 03/13/19 03/20/21 Simethicone [Gas-X] 125 mg PO DAILY 03/13/19 03/20/21 Estrogens, Conjugated [Premarin] 0.625 mg PO QAM 04/05/20 03/20/21 Sucraid 8500/Ml Solution 2 ml PO AC-BID 04/05/20 03/20/21 Albuterol Nebulized [Ventolin 2.5 mg INHALATION RT-Q8H 09/25/20 03/20/21 Nebulized] Apixaban [Eliquis] 5 mg PO BID 09/25/20 03/20/21 Omeprazole [PriLOSEC] 20 mg PO AC-BRKFST 09/25/20 03/20/21 Amiodarone HCl [Pacerone] 100 mg PO DAILY 03/20/21 03/20/21 Budesonide-Formot 160-4.5 Mcg 2 puff INHALATION RT-BID 03/20/21 03/20/21 [Symbicort 160-4.5 Mcg Inhaler] Previous Rx's Medication Instructions Recorded Furosemide [Lasix] 40 mg PO DAILY #30 tablet 09/26/20 Potassium Chloride ER [K-Dur 20] 20 meq PO DAILY #30 tab 09/26/20 Magnesium Oxide [Mag-Oxide] 400 mg PO DAILY #90 tablet 03/18/21 Metoprolol Tartrate 12.5 mg PO BID #90 tab 03/18/21 Allergies Allergy/AdvReac Type Severity Reaction Status Date / Time rivaroxaban [From Xarelto] Allergy Severe Anaphylaxis,hives, Verified 03/20/21 12:57 throat swelling, sob Review of Systems ROS Statement: Those systems with pertinent positive or pertinent negative responses have been documented in the HPI. ROS Other: All systems not noted in ROS Statement are negative. Past Medical History Past Medical History: Atrial Fibrillation, Asthma, Coronary Artery Disease (CAD), Chest Pain / Angina, Heart Failure, COPD, CVA/TIA, GERD/Reflux, Hyperlipidemia, Hypertension, Pneumonia Additional Past Medical History / Comment(s): mitral regurgitation, meningioma removals x 2, TIA 01/2019- no residual deficits, sucrose intolerance History of Any Multi-Drug Resistant Organisms: None Reported Past Surgical History: Appendectomy, Cholecystectomy, Heart Catheterization, Hysterectomy, Orthopedic Surgery Additional Past Surgical History / Comment(s): brain surgery 2002 & 2004 (benign tumors), CLEO, cervical fusion, colonoscopy, L carpal tunnel release Past Anesthesia/Blood Transfusion Reactions: No Reported Reaction Past Psychological History: No Psychological Hx Reported Smoking Status: Current every day smoker Past Alcohol Use History: None Reported Past Drug Use History: None Reported - Past Family History Father Family Medical History: Deep Vein Thrombosis (DVT) Mother Family Medical History: Coronary Artery Disease (CAD), Hyperlipidemia, Hypertension Additional Family Medical History / Comment(s): Mother is . General Exam Limitations: no limitations Course Vital Signs 03/20/21 03/20/21 11:17 13:10 Temperature 98.3 F Pulse Rate 69 Respiratory 18 20 Rate Blood Pressure 123/67 O2 Sat by Pulse 94 L 93 L Oximetry Medical Decision Making - Medical Decision Making Upon arrival the patient was placed into room 16. There are history and physical exam was performed. Patient maintains saturations at 94%. Laboratory studies are conducted. D-dimer 0.37. Troponin is elevated at 0.869 however she just had cardiac ablation. EKG normal. Chest x-ray demonstrates persistent interstitial pattern with reduction of either consolidation. She is able to get up and ambulate. She does not drop her oxygen saturations. Patient will be given antibody infusion at this time and discharged home. Instructed follow up with her primary care doctor. Return for any new or worsening symptoms. Patient was discharged home in stable condition - Lab Data Result diagrams: 03/20/21 12:05 03/20/21 12:05 Lab Results 03/20/21 03/20/21 03/20/21 Range/Units 12:05 12:05 12:05 WBC 13.8 H (3.8-10.6) k/uL RBC 4.24 (3.80-5.40) m/uL Hgb 13.8 (11.4-16.0) gm/dL Hct 40.3 (34.0-46.0) % MCV 95.0 (80.0-100.0) fL MCH 32.6 (25.0-35.0) pg MCHC 34.3 (31.0-37.0) g/dL RDW 13.3 (11.5-15.5) % Plt Count 301 (150-450) k/uL MPV 8.7 Neutrophils % 91 % Lymphocytes % 5 % Monocytes % 3 % Eosinophils % 0 % Basophils % 0 % Neutrophils # 12.5 H (1.3-7.7) k/uL Lymphocytes # 0.7 L (1.0-4.8) k/uL Monocytes # 0.4 (0-1.0) k/uL Eosinophils # 0.0 (0-0.7) k/uL Basophils # 0.0 (0-0.2) k/uL PT 13.1 H (9.0-12.0) sec INR 1.3 H (<1.2) APTT 27.5 (22.0-30.0) sec D-Dimer 0.37 (<0.60) mg/L FEU Sodium 130 L (137-145) mmol/L Potassium 4.0 (3.5-5.1) mmol/L Chloride 99 (98-107) mmol/L Carbon Dioxide 22 (22-30) mmol/L Anion Gap 9 mmol/L BUN 17 (7-17) mg/dL Creatinine 0.71 (0.52-1.04) mg/dL Est GFR (CKD-EPI)AfAm >90 (>60 ml/min/1.73 sqM) Est GFR (CKD-EPI)NonAf >90 (>60 ml/min/1.73 sqM) Glucose 108 H (74-99) mg/dL Calcium 8.4 (8.4-10.2) mg/dL Magnesium 2.0 (1.6-2.3) mg/dL Total Bilirubin 1.3 (0.2-1.3) mg/dL AST 39 H (14-36) U/L ALT 25 (4-34) U/L Alkaline Phosphatase 83 (38-126) U/L Troponin I (0.000-0.034) ng/mL NT-Pro-B Natriuret Pep pg/mL Total Protein 6.2 L (6.3-8.2) g/dL Albumin 3.2 L (3.5-5.0) g/dL 03/20/21 03/20/21 Range/Units 12:05 12:05 WBC (3.8-10.6) k/uL RBC (3.80-5.40) m/uL Hgb (11.4-16.0) gm/dL Hct (34.0-46.0) % MCV (80.0-100.0) fL MCH (25.0-35.0) pg MCHC (31.0-37.0) g/dL RDW (11.5-15.5) % Plt Count (150-450) k/uL MPV Neutrophils % % Lymphocytes % % Monocytes % % Eosinophils % % Basophils % % Neutrophils # (1.3-7.7) k/uL Lymphocytes # (1.0-4.8) k/uL Monocytes # (0-1.0) k/uL Eosinophils # (0-0.7) k/uL Basophils # (0-0.2) k/uL PT (9.0-12.0) sec INR (<1.2) APTT (22.0-30.0) sec D-Dimer (<0.60) mg/L FEU Sodium (137-145) mmol/L Potassium (3.5-5.1) mmol/L Chloride (98-107) mmol/L Carbon Dioxide (22-30) mmol/L Anion Gap mmol/L BUN (7-17) mg/dL Creatinine (0.52-1.04) mg/dL Est GFR (CKD-EPI)AfAm (>60 ml/min/1.73 sqM) Est GFR (CKD-EPI)NonAf (>60 ml/min/1.73 sqM) Glucose (74-99) mg/dL Calcium (8.4-10.2) mg/dL Magnesium (1.6-2.3) mg/dL Total Bilirubin (0.2-1.3) mg/dL AST (14-36) U/L ALT (4-34) U/L Alkaline Phosphatase (38-126) U/L Troponin I 0.869 H* (0.000-0.034) ng/mL NT-Pro-B Natriuret Pep 5110 pg/mL Total Protein (6.3-8.2) g/dL Albumin (3.5-5.0) g/dL - EKG Data EKG Comments: EKG demonstrates a normal sinus rhythm with a ventricular rate of 64. NV interval 126. QRS 90. QTC of 501. Some baseline artifact. No acute ST segment elevations. Disposition Clinical Impression: COVID-19 Disposition: HOME SELF-CARE Condition: Stable Instructions (If sedation given, give patient instructions): Coronavirus Disease 2019 (COVID-19) Additional Instructions: Please continue to check your pulse ox. Return to the emergency department for any new or worsening symptoms - including if your oxygen is less than 90% Is patient prescribed a controlled substance at d/c from ED?: No Referrals: Harika Cortez MD [Primary Care Provider] - 1-2 days Time of Disposition: 14:58
[2021-03-20 13:24] LABS: ALT 25 U/L (4-34); AST 39 U/L (14-36); African American GFR (CKD) >90 (>60 ml/min/1.73 sqM); Albumin 3.2 g/dL (3.5-5.0); Alkaline Phosphatase 83 U/L (38-126); Anion Gap 9 mmol/L; Blood Urea Nitrogen 17 mg/dL (7-17); Calcium 8.4 mg/dL (8.4-10.2); Carbon Dioxide 22 mmol/L (22-30); Chloride 99 mmol/L (98-107); Glucose 108 mg/dL (74-99); Non-African American GFR(CKD) >90 (>60 ml/min/1.73 sqM); Sodium 130 mmol/L (137-145); Total Bilirubin 1.3 mg/dL (0.2-1.3); Total Protein 6.2 g/dL (6.3-8.2)
[2021-03-20] MEDS ORDERED: SODIUM CHLORIDE 0.9% 50 ML IVPB ONE (15:00)
[2021-03-20] MEDS ORDERED: BAMLANIVIMAB (EUA) 700 MG, ETESEVIMAB (EUA) 1,400 MG in SODIUM CHLORIDE 0.9% 50 ML IVPB ONE (15:00)
[2021-03-20 16:56] VITALS: BP 134/60; PULSE 60; RESP 18
== END 2021-03-20 17:04 | disposition home or self-care (01) ==
LOC: EC 11:12
DX: U07.1 COVID-19 (principal); I11.0 Hypertensive heart disease with heart failure; I50.9 Heart failure, unspecified; I48.91 Unspecified atrial fibrillation; I25.10 Atherosclerotic heart disease of native coronary artery without angina pectoris; J45.909 Unspecified asthma, uncomplicated; K21.9 Gastro-esophageal reflux disease without esophagitis; E78.5 Hyperlipidemia, unspecified; F17.200 Nicotine dependence, unspecified, uncomplicated; Z79.01 Long term (current) use of anticoagulants; Z88.1 Allergy status to other antibiotic agents; Z86.73 Personal history of transient ischemic attack (TIA), and cerebral infarction without residual deficits; Z90.49 Acquired absence of other specified parts of digestive tract; Z90.710 Acquired absence of both cervix and uterus
CPT/HCPCS: 99285; 96365; 36415; 93005; 85379; 83880; 80053; 83735; 84484; 85025; 85610; 85730; 71045; J3490

== ENCOUNTER 2022-03-03 07:26 | Day surgery (SDC) | payer BC, MEDICARE ==
[2022-02-27 09:17] VITALS: BMI 21.7
[~2022-03-03 07:26] MED LIST changes: +ALPRAZolam 0.25 MG TAB PO PRN; +ALPRAZolam 0.5 MG TAB PO PRN; +ASPIRIN 325 MG TAB PO STA; +ATORVASTATIN 80 MG TAB PO STA; +HEPARIN SODIUM,PORCINE 10,000 UNIT in SODIUM CHLORIDE 0.9% 1,000 ML IRRIGATION PRN; +HEPARIN SODIUM,PORCINE 2,500 UNIT in SODIUM CHLORIDE 0.9% 250 ML IRRIGATION PRN; -HYDROmorphone 0.5 MG/0.5 ML SYRINGE IVP PRN; -LACTATED RINGERS 1,000 ML IV SCH; -MIDAZOLAM 2 MG/2 ML VIAL IV PRN; +NITROGLYCERIN SL TABS 0.4 MG TAB SUBLINGUAL PRN; -SODIUM CHLORIDE 0.9% 1,000 ML IV SCH
[2022-03-03 07:48] VITALS: TEMP 97.9
[2022-03-03] MEDS ORDERED: SODIUM CHLORIDE 0.9% 1,000 ML IV ONE (07:48)
[2022-03-03 07:59] LABS: Basophils # (A) 0.1 k/uL (0-0.2); Basophils % (A) 1 %; Eosinophils # (A) 0.1 k/uL (0-0.7); Eosinophils % (A) 1 %; HCT 47.6 % (34.0-46.0); Lymphocytes % (A) 31 %; MCH 32.6 pg (25.0-35.0); MCHC 33.6 g/dL (31.0-37.0); Mean Platelet Volume 9.1; Monocytes # (A) 0.7 k/uL (0-1.0); Monocytes % (A) 7 %; Neutrophils # (A) 5.3 k/uL (1.3-7.7); Neutrophils % (A) 55 %; Platelet Count 216 k/uL (150-450); RBC 4.91 m/uL (3.80-5.40); RDW 12.6 % (11.5-15.5); WBC 9.6 k/uL (3.8-10.6)
[2022-03-03 08:03] LABS: Calcium 8.8 mg/dL (8.4-10.2)
[2022-03-03] MEDS: BENZOCAINE SPRAY 1 CAN TOPICAL ONE ×2 (08:06→08:19)
[2022-03-03] MEDS ORDERED: IV FLUID CONTINUATION 1,000 ML IV ONE (08:09)
[2022-03-03 08:19] VITALS: RESP 16
[2022-03-03] MEDS ORDERED: MIDAZOLAM 2 MG/2 ML VIAL IV ONE ×2 (08:20→08:22)
[2022-03-03] MEDS ORDERED: fentaNYL (PF) 50 MCG/1 ML VIAL IV ONE (08:20)
[2022-03-03 08:24] LABS: Potassium 4.6 mmol/L (3.5-5.1)
--- NOTE | 2022-03-03 08:39 | P.PCN ---
Date of Procedure: 03/03/22 Description of Procedure: Indication: Evaluation of mitral valve Procedure Description: After explaining the procedure to the patient, it's risk and complications, blood pressure, heart rate and O2 saturation were monitored. The throat was sprayed with Cetacaine. Patient received 3 mg intravenous Versed, 50 mcg intravenous fentanyl. The probe was introduced into the esophagus without difficulty. Images were obtained. Following that, the probe was removed. There was no immediate complication. Findings: Left atrial size is dilated, left atrial appendage is normal. Left ventricle size and systolic function is normal. The aortic valve revealed fibrocalcific changes of the aortic cusp with preserved opening. The mitral valve leaflets are thickened with mild prolapse of the posterior mitral valve leaflets. Tricuspid valve is normal. Descending thoracic aorta appears to be normal. No pericardial effusion was noted. Contrast bubble study revealed no shunting across the intra-atrial septum. Doppler: Pulse wave and color Doppler were obtained, multiple jets of mitral regurgitation was noted with moderate mitral regurgitation and tricuspid regurgitation. The estimated right ventricular systolic pressure is 50 mmHg. Mild aortic regurgitation was noted. Shunting through a secundum ASD was noted is left to right flow. Conclusion: 1. Dilated left atrium with normal appearance of the left atrial appendage 2. Normal left ventricle size and systolic function 3. Moderate to severe mitral regurgitation with multiple jets and mild prolapse of the mitral valve leaflet 4. Moderate tricuspid regurgitation and pulmonary hypertension 5. Secundum ASD with [id number] shunting 6. Mild aortic regurgitation
[2022-03-03] MEDS ORDERED: HEPARIN SODIUM 1,000 UN/ML (10ML VL) ONE (08:49)
[2022-03-03] MEDS ORDERED: VERAPAMIL 2.5 MG/ML 2 ML AMP ONE (08:49)
[2022-03-03] MEDS ORDERED: LIDOCAINE 1% INJ 10MG/ML (30 ML VIAL-PF) SQ ONE (09:26)
[2022-03-03] MEDS ORDERED: VERAPAMIL SYRINGE (5 MG/10 ML) INTRAARTER ONE (09:28)
[2022-03-03] MEDS ORDERED: HEPARIN SODIUM 1,000 UN/ML (10ML VL) IV ONE (09:45)
[2022-03-03] MEDS ORDERED: IOPAMIDOL-370 125ML BTL INJ ONE (09:53)
[2022-03-03 10:02] LABS: O2 Sat Blood Gas 72.7 %
[2022-03-03 10:03] LABS: O2 Sat Blood Gas 96.6 %
[2022-03-03 10:04] LABS: O2 Sat Blood Gas 76.2 %
[2022-03-03] MEDS ORDERED: RX INFO: IV CONTRAST WAS GIVEN 1 EACH MISC MISCELLANE PRN (10:05)
[2022-03-03] MEDS ORDERED: SODIUM CHLORIDE 0.9% 1,000 ML IV SCH (10:15)
--- NOTE | 2022-03-03 10:15 | P.CARDCATH ---
Date of Procedure: 03/03/22 Description of Procedure: Cardiac Catheterization: The patient is a 66-year-old female with a known history of paroxysmal atrial fibrillation, progressive dyspnea and mitral regurgitation who was found to have worsening mitral regurgitation on her echocardiogram. Recommendations were made regarding cardiac catheterization, the risks and the complications were discussed with the patient who is in full understanding and agreement. Procedure Description: Patient was brought to dental laboratory supervisor in fasting semi-sedated state after receiving Fentanyl and Benadryl achieiving moderate conscious sedated state. Using Xylocaine Anesthesia and Seldinger technique, a 6-Andorran sheath was introduced in the right radial artery . Following that the venous sheath in the right cephalic vein was exchanged to a 6-Andorran sheath using guidewire exchange technique. Right heart catheterization was performed using the Caney-Marcela catheter. Multiple pressure and samples were obtained. Cardiac output by thermodilution was performed. Subsequently, selective coronary angiography was performed using a 5-Andorran 3.5 bend Giovanni catheter. Multiple views of the coronary artery including hemiaxial views were obtained. The 5-Andorran Pigtail catheter was used to cross the aortic valve and LVEDP was calculated. Following that, catheter and sheath were removed. Hemostasis was obtained with deployment of TR band and compression of the right brachial area. There was no immediate complication. Patient was returned to room in stable condition. Of note, the patient received a total of 3000 units of intravenous heparin as well as intra-arterial verapamil. 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 The LAD and the diagonal branch have no evidence of high-grade stenosis Left circumflex: This is a large nondominant vessel eating rise to very proximal obtuse marginal branch the second obtuse marginal branch is large in caliber. The left circumflex and its branches have no evidence of high-grade stenosis RCA: This is a large dominant vessel bifurcating into PDA and PLV. The proximal RCA has 10% plaque the rest of the vessel has no high-grade stenosis Left Ventriculogram: Performed in the PRO view and showed a normal ventricle size and systolic function with 2-3+ mitral regurgitation Hemodynamics: There was no gradient across the aortic valve, LVEDP was 5-10 mmHg. Pulmonary artery systolic pressure of 35 with end-diastolic of 20 and a mean of 24 mmHg, pulmonary Reports pressure V-wave of 15 mmHg with a mean of 12 mmHg, right ventricular systolic pressure of 34 with end-diastolic of 6 minutes of mercury, right atrium V-wave of 6 with a mean of 4 to mercury. PA saturation of 73%, RA 76%, arterial 97%. Cardiac output by Pavan 6.2 L/m and by thermal dilution 4.2 L/m Conclusion: 1. Mild dilatation of the distal left main 2. Mild plaque in the proximal RCA 3. 2-3+ mitral regurgitation 4. And mild pulmonary hypertension Recommendations: I have recommended to continue medical therapy evaluate the patient to see if gnosticist of sinus mechanism feasible and possible closure of her ASD, or mitral regurgitation does not appear to be severe enough to require repair.. The findings and the recommendations were discussed with the patient and the family and they were in full understanding and agreement. Duration of sedation is 29 minutes.
[2022-03-03 13:23] VITALS: BP 147/62; PULSE 100
[2022-03-03] MEDS ORDERED: METOPROLOL TARTRATE 25 MG TAB PO SCH (21:00)
[2022-03-03] MEDS ORDERED: AMIODARONE 100 MG TAB PO SCH (21:00)
[2022-03-04] MEDS ORDERED: ATORVASTATIN 20 MG TAB PO SCH (09:00)
== END 2022-03-03 14:13 | disposition home or self-care (01) ==
LOC: CATHCVL 07:26
PROVIDERS: ATTEND Internal Medicine Interventional Cardiology
DX: I34.0 Nonrheumatic mitral (valve) insufficiency (principal); I27.20 Pulmonary hypertension, unspecified; Q21.11 Secundum atrial septal defect
CPT/HCPCS: 93312; 93320; 93325; 93460; 80048; 85018; 82810; 85025; C1769 ×2; C1894; C1751; J2250; J2001; J1644; Q9967; J3010

== ENCOUNTER 2022-03-23 05:46 | Day surgery (SDC) | payer BC, MEDICARE ==
[2022-03-23] MEDS ORDERED: SODIUM CHLORIDE 0.9% 1,000 ML IV SCH ×2 (05:53→07:45)
[2022-03-23 06:20] VITALS: TEMP 97.3
[2022-03-23] MEDS ORDERED: LIDOCAINE 2% INJ 20 MG/ML (2 ML VIAL) ONE (07:25)
[2022-03-23] MEDS ORDERED: PROPOFOL 10 MG/ML 20 ML VIAL IV ONE (07:25)
[2022-03-23] MEDS ORDERED: MECLIZINE 25 MG TAB PO PRN (07:35)
[2022-03-23] MEDS ORDERED: LORATADINE 10 MG TAB PO PRN (07:35)
--- NOTE | 2022-03-23 07:39 | P.PCN ---
Date of Procedure: 03/23/22 Description of Procedure: Cardioversion: Indication: atrial fibrillation After explaining the procedure to the patient as well as the risks and the complication, her blood pressure, heart rate and O2 saturation were monitored, after obtaining sedated state per Anesthesia department a synchronized 150 J cardioversion was performed with taoist of sinus mechanism, there was no immediate complications.
[2022-03-23 07:41] VITALS: RESP 16
[2022-03-23] MEDS ORDERED: NON FORMULARY DRUG (Rosuvastatin Calcium [Crestor] 10 MG Tablet) PO SCH (09:00)
[2022-03-23] MEDS ORDERED: MAGNESIUM OXIDE 200 MG PO SCH (09:00)
[2022-03-23] MEDS ORDERED: ESTROGENS, CONJUGATED 0.625 MG TAB PO SCH (09:00)
[2022-03-23] MEDS ORDERED: SIMETHICONE 125 MG PO SCH (09:00)
[2022-03-23] MEDS ORDERED: METOPROLOL TARTRATE 25 MG TAB PO SCH (09:00)
[2022-03-23] MEDS ORDERED: APIXABAN 5 MG TAB PO SCH (09:00)
[2022-03-23 09:10] VITALS: BP 137/79; PULSE 67
[2022-03-23] MEDS ORDERED: [UNRECOGNIZED DRUG - OTHER] PO SCH (17:30)
[2022-03-23] MEDS ORDERED: AMIODARONE 100 MG TAB PO SCH (21:00)
[2022-03-24] MEDS ORDERED: PANTOPRAZOLE 40 MG TABLET PO SCH (07:30)
== END 2022-03-23 09:18 | disposition home or self-care (01) ==
LOC: CATHCVL 05:46
PROVIDERS: ATTEND Internal Medicine Interventional Cardiology
DX: I48.11 Longstanding persistent atrial fibrillation (principal); I10 Essential (primary) hypertension; F17.210 Nicotine dependence, cigarettes, uncomplicated; I34.0 Nonrheumatic mitral (valve) insufficiency; I25.10 Atherosclerotic heart disease of native coronary artery without angina pectoris; E78.2 Mixed hyperlipidemia; M19.90 Unspecified osteoarthritis, unspecified site; K21.9 Gastro-esophageal reflux disease without esophagitis
CPT/HCPCS: 92960; J2704; J2001

== ENCOUNTER 2022-11-12 16:02 | Inpatient (IN) | payer BC, MEDICARE ==
[2022-11-12] MEDS ORDERED: SODIUM CHLORIDE 0.9% 1,000 ML IV STA (16:36)
[2022-11-12] MEDS ORDERED: IPRATROPIUM-ALBUTEROL 3 ML NEB INHALATION STA (16:36)
[2022-11-12] MEDS ORDERED: methylPREDNISolone SOD SUCCI 125 MG/2 ML VIAL IV STA (16:36)
--- NOTE | 2022-11-12 16:41 | ED ---
SOB HPI - General Chief Complaint: Shortness of Breath Stated Complaint: Diff breathing Time Seen by Provider: 11/12/22 16:18 Source: patient, RN notes reviewed Mode of arrival: ambulatory Limitations: no limitations - History of Present Illness Initial Comments: 67-year-old female with a history history atrial fibrillation who is on anticoagulants at this time was a she's had shortness of breath and exertional dyspnea for over a week. She's had sweats no fevers chills no chest pain denies any palpitations no peripheral edema. She does use inhalers at home they've not been helping apparently. She apparently is scheduled to have a procedure done regarding the atrial fibrillation is coming week. MD Complaint: shortness of breath, cough - Related Data Home Medications Medication Instructions Recorded Confirmed Loratadine [Claritin] 10 mg PO HS PRN 03/13/19 11/12/22 Rosuvastatin Calcium [Crestor] 10 mg PO DAILY 03/13/19 11/12/22 Simethicone [Gas-X] 125 mg PO DAILY 03/13/19 11/12/22 Estrogens, Conjugated [Premarin] 0.625 mg PO DAILY 04/05/20 11/12/22 Sucraid 8500/Ml Solution 2 ml PO AC-BID 04/05/20 11/12/22 Albuterol Nebulized [Ventolin 2.5 mg INHALATION RT-BID 09/25/20 11/12/22 Nebulized] Apixaban [Eliquis] 5 mg PO BID 09/25/20 11/12/22 Acetaminophen Tab [Tylenol Tab] 1,000 mg PO Q6HR PRN 02/27/22 11/12/22 Meclizine [Antivert] 25 mg PO TID PRN 02/27/22 11/12/22 Metoprolol Tartrate 25 mg PO BID 02/27/22 11/12/22 Valsartan 80 mg PO DAILY@1300 11/11/22 11/12/22 Amiodarone [Cordarone] 200 mg PO BID 11/12/22 11/12/22 Furosemide [Lasix] 40 mg PO DAILY PRN 11/12/22 11/12/22 Magnesium Oxide [Magnesium] 500 mg PO DAILY 11/12/22 11/12/22 Allergies Allergy/AdvReac Type Severity Reaction Status Date / Time rivaroxaban [From Xarelto] Allergy Severe Anaphylaxis,hives, Verified 11/12/22 19:15 throat swelling, sob Review of Systems ROS Statement: Those systems with pertinent positive or pertinent negative responses have been documented in the HPI. ROS Other: All systems not noted in ROS Statement are negative. Past Medical History Past Medical History: Atrial Fibrillation, Asthma, Coronary Artery Disease (CAD), Chest Pain / Angina, Heart Failure, COPD, CVA/TIA, GERD/Reflux, Hyperl ipidemia, Hypertension, Osteoarthritis (OA), Pneumonia Additional Past Medical History / Comment(s): mitral valve regurgitation, meningioma removals x 2, TIA 01/2019- no residual deficits, sucrose intolerance History of Any Multi-Drug Resistant Organisms: None Reported Past Surgical History: Appendectomy, Cardiac Ablation, Cholecystectomy, Heart Catheterization, Hysterectomy, Orthopedic Surgery Additional Past Surgical History / Comment(s): brain surgery 2002 & 2003 (benign tumors), CLEO, cervical fusion, colonoscopy, L carpal tunnel release Past Anesthesia/Blood Transfusion Reactions: No Reported Reaction Past Psychological History: No Psychological Hx Reported Smoking Status: Current every day smoker Past Alcohol Use History: Occasional Past Drug Use History: None Reported - Past Family History Father Family Medical History: Deep Vein Thrombosis (DVT) Mother Family Medical History: Coronary Artery Disease (CAD), Hyperlipidemia, Hypertension Additional Family Medical History / Comment(s): Mother is . Brother(s) Family Medical History: Myocardial Infarction ([place]) General Exam - General Exam Comments Initial Comments: This is a well-developed Limitations: no limitations General appearance: alert, anxious Head exam: Present: atraumatic, normocephalic, normal inspection Eye exam: Present: normal appearance, PERRL, EOMI. Absent: scleral icterus, conjunctival injection, periorbital swelling ENT exam: Present: normal exam, mucous membranes moist Neck exam: Present: normal inspection, full ROM, other (No stridor JVD or bruits). Absent: tenderness, meningismus, lymphadenopathy Respiratory exam: Present: decreased breath sounds (Decreased breath sounds especially on the right no definitive rales or wheezes). Absent: respiratory distress, wheezes, rales, rhonchi, stridor Cardiovascular Exam: Present: tachycardia, irregular rhythm. Absent: systolic murmur, diastolic murmur, rubs, gallop, clicks GI/Abdominal exam: Present: soft, normal bowel sounds. Absent: distended, tenderness, guarding, rebound, rigid Extremities exam: Present: normal inspection, full ROM, normal capillary refill. Absent: tenderness, pedal edema, joint swelling, calf tenderness Back exam: Present: normal inspection Neurological exam: Present: alert, oriented X3, CN II-XII intact Psychiatric exam: Present: normal affect, normal mood Skin exam: Present: warm, dry, intact, normal color. Absent: rash Course Vital Signs 11/12/22 11/12/22 11/12/22 16:09 17:48 18:02 Temperature 98.5 F Pulse Rate 110 H 100 100 Respiratory 18 Rate Blood Pressure 115/62 O2 Sat by Pulse 99 Oximetry 11/12/22 11/12/22 21:00 21:18 Temperature Pulse Rate 100 100 Respiratory 24 20 Rate Blood Pressure 146/99 146/99 O2 Sat by Pulse 98 97 Oximetry Medical Decision Making - Medical Decision Making I did reevaluate patient on several occasions patient is feeling slightly improved after nebulizer treatment I did discuss findings with her and family the presentation appears be consistent with acute CHF exacerbation with bilateral pleural effusions. Patient be admitted case was discussed with Tiana duncan for Dr. Dia.Was pt. sent in by a medical professional or institution (, PA, LINE FIXER, urgent care, hospital, or halfway...) When possible be specific @ -No Did you speak to anyone other than the patient for history (EMS, parent, family, police, friend...)? What history was obtained from this source @ -No Did you review nursing and triage notes (agree or disagree)? Why? @ -I reviewed and agree with nursing and triage notes Were old charts reviewed (outside hosp., previous admission, EMS record, old EKG, old radiological studies, urgent care reports/EKG's, halfway records)? Report findings @ - old charts were reviewed Differential Diagnosis (chest pain, altered mental status, abdominal pain women, abdominal pain men, vaginal bleeding, weakness, fever, dyspnea, syncope, headache, dizziness, GI bleed, back pain, seizure, CVA, palpatations, mental health, musculoskeletal)? @ -not applicable EKG interpreted by me (3pts min.). @ -As above atrial fibrillation heart rate 113 QRS 94 QT since QTC 386/423 low-voltage nonspecific inferior configuration X-rays interpreted by me (1pt min.). @ -Evidence of increased interstitial markings of bilateral pleural effusions CT interpreted by me (1pt min.). @ -None done U/S interpreted by me (1pt. min.). @ -None done What testing was considered but not performed or refused? (CT, X-rays, U/S, labs)? Why? @ -None What meds were considered but not given or refused? Why? @ -None Did you discuss the management of the patient with other professionals (professionals i.e. , PA, LINE FIXER, lab, RT, psych nurse, public health social worker, production control expert, teacher, driver license reviewing officer, complex case manager)? Give summary @ -Tiana covering for Dr. Dia Was smoking cessation discussed for >3mins.? @ -No Was critical care preformed (if so, how long)? @ -35 minutes Were there social determinants of health that impacted care today? How? (Homelessness, low income, unemployed, alcoholism, drug addiction, transportation, low edu. Level, literacy, decrease access to med. care, snf, rehab)? @ -No Was there de-escalation of care discussed even if they declined (Discuss DNR or withdrawal of care, Hospice)? DNR status @ -No What co-morbidities impacted this encounter? (DM, HTN, Smoking, COPD, CAD, Cancer, CVA, ARF, Chemo, Hep., AIDS, mental health diagnosis, sleep apnea, morbid obesity)? @ -Atrial fibrillation, hypertension, coronary artery disease, asthma/COPD Was patient admitted / discharged? Hospital course, mention meds given and route, prescriptions, significant lab abnormalities, going to OR and other pertinent info. @ -hospital course Undiagnosed new problem with uncertain prognosis? @ -Congestive heart failure pleural effusions Drug Therapy requiring intensive monitoring for toxicity (Heparin, Nitro, Insulin, Cardizem)? @ -No Were any procedures done? @ -No Diagnosis/symptom? @ -Congestive heart failure, bilateral pleural effusions, COPD Acute, or Chronic, or Acute on Chronic? @ -Acute Uncomplicated (without systemic symptoms) or Complicated (systemic symptoms)? @ -Complicated Side effects of treatment? @ -No Exacerbation, Progression, or Severe Exacerbation? @ -No Poses a threat to life or bodily function? How? (Chest pain, [place], [place], pneumonia, PE, COPD, DKA, ARF, appy, cholecystitis, CVA, Diverticulitis, Homicidal, Suicidal, threat to staff... and all critical care pts) @ -Yes, CHF, COPD, atrial fibrillation - Lab Data Result diagrams: 11/12/22 17:07 11/12/22 17:07 Lab Results 11/12/22 11/12/22 11/12/22 Range/Units 17:07 17:07 17:07 WBC 9.9 (3.8-10.6) k/uL RBC 4.30 (3.80-5.40) m/uL Hgb 13.7 (11.4-16.0) gm/dL Hct 42.8 (34.0-46.0) % MCV 99.7 (80.0-100.0) fL MCH 31.9 (25.0-35.0) pg MCHC 32.0 (31.0-37.0) g/dL RDW 14.0 (11.5-15.5) % Plt Count 175 (150-450) k/uL MPV 9.2 Neutrophils % 67 % Lymphocytes % 21 % Monocytes % 8 % Eosinophils % 0 % Basophils % 0 % Neutrophils # 6.6 (1.3-7.7) k/uL Lymphocytes # 2.1 (1.0-4.8) k/uL Monocytes # 0.8 (0-1.0) k/uL Eosinophils # 0.0 (0-0.7) k/uL Basophils # 0.0 (0-0.2) k/uL Macrocytosis Slight PT 11.5 (9.0-12.0) sec INR 1.1 (<1.2) APTT 23.4 (22.0-30.0) sec Sodium 134 L (137-145) mmol/L Potassium 4.2 (3.5-5.1) mmol/L Chloride 105 (98-107) mmol/L Carbon Dioxide 20 L (22-30) mmol/L Anion Gap 9 mmol/L BUN 17 (7-17) mg/dL Creatinine 0.93 (0.52-1.04) mg/dL Est GFR (CKD-EPI)AfAm 75 (>60 ml/min/1.73 sqM) Est GFR (CKD-EPI)NonAf 65 (>60 ml/min/1.73 sqM) Glucose 113 H (74-99) mg/dL Lactic Ac Sepsis Rflx Plasma Lactic Acid Kartik (0.7-2.0) mmol/L Calcium 8.4 (8.4-10.2) mg/dL Total Bilirubin 1.0 (0.2-1.3) mg/dL AST 66 H (14-36) U/L ALT 71 H (4-34) U/L Alkaline Phosphatase 112 (38-126) U/L Troponin I (0.000-0.034) ng/mL NT-Pro-B Natriuret Pep pg/mL Total Protein 6.2 L (6.3-8.2) g/dL Albumin 3.6 (3.5-5.0) g/dL 11/12/22 11/12/22 11/12/22 Range/Units 17:07 17:07 17:07 WBC (3.8-10.6) k/uL RBC (3.80-5.40) m/uL Hgb (11.4-16.0) gm/dL Hct (34.0-46.0) % MCV (80.0-100.0) fL MCH (25.0-35.0) pg MCHC (31.0-37.0) g/dL RDW (11.5-15.5) % Plt Count (150-450) k/uL MPV Neutrophils % % Lymphocytes % % Monocytes % % Eosinophils % % Basophils % % Neutrophils # (1.3-7.7) k/uL Lymphocytes # (1.0-4.8) k/uL Monocytes # (0-1.0) k/uL Eosinophils # (0-0.7) k/uL Basophils # (0-0.2) k/uL Macrocytosis PT (9.0-12.0) sec INR (<1.2) APTT (22.0-30.0) sec Sodium (137-145) mmol/L Potassium (3.5-5.1) mmol/L Chloride (98-107) mmol/L Carbon Dioxide (22-30) mmol/L Anion Gap mmol/L BUN (7-17) mg/dL Creatinine (0.52-1.04) mg/dL Est GFR (CKD-EPI)AfAm (>60 ml/min/1.73 sqM) Est GFR (CKD-EPI)NonAf (>60 ml/min/1.73 sqM) Glucose (74-99) mg/dL Lactic Ac Sepsis Rflx Plasma Lactic Acid Kartik 2.2 H* (0.7-2.0) mmol/L Calcium (8.4-10.2) mg/dL Total Bilirubin (0.2-1.3) mg/dL AST (14-36) U/L ALT (4-34) U/L Alkaline Phosphatase (38-126) U/L Troponin I <0.012 (0.000-0.034) ng/mL NT-Pro-B Natriuret Pep 81284 pg/mL Total Protein (6.3-8.2) g/dL Albumin (3.5-5.0) g/dL 11/12/22 Range/Units 18:27 WBC (3.8-10.6) k/uL RBC (3.80-5.40) m/uL Hgb (11.4-16.0) gm/dL Hct (34.0-46.0) % MCV (80.0-100.0) fL MCH (25.0-35.0) pg MCHC (31.0-37.0) g/dL RDW (11.5-15.5) % Plt Count (150-450) k/uL MPV Neutrophils % % Lymphocytes % % Monocytes % % Eosinophils % % Basophils % % Neutrophils # (1.3-7.7) k/uL Lymphocytes # (1.0-4.8) k/uL Monocytes # (0-1.0) k/uL Eosinophils # (0-0.7) k/uL Basophils # (0-0.2) k/uL Macrocytosis PT (9.0-12.0) sec INR (<1.2) APTT (22.0-30.0) sec Sodium (137-145) mmol/L Potassium (3.5-5.1) mmol/L Chloride (98-107) mmol/L Carbon Dioxide (22-30) mmol/L Anion Gap mmol/L BUN (7-17) mg/dL Creatinine (0.52-1.04) mg/dL Est GFR (CKD-EPI)AfAm (>60 ml/min/1.73 sqM) Est GFR (CKD-EPI)NonAf (>60 ml/min/1.73 sqM) Glucose (74-99) mg/dL Lactic Ac Sepsis Rflx Y Plasma Lactic Acid Kartik (0.7-2.0) mmol/L Calcium (8.4-10.2) mg/dL Total Bilirubin (0.2-1.3) mg/dL AST (14-36) U/L ALT (4-34) U/L Alkaline Phosphatase (38-126) U/L Troponin I (0.000-0.034) ng/mL NT-Pro-B Natriuret Pep pg/mL Total Protein (6.3-8.2) g/dL Albumin (3.5-5.0) g/dL - EKG Data -: EKG Interpreted by Me EKG Comments: EKG interpreted by me for ablation rate 113 QRS duration 94 daily since QTC 35 6/423 low-voltage nonspecific inferior configuration - Radiology Data Interpreted by me: He interpreted by me evidence of this congestive changes with bilateral pleural effusions more swollen the right than the left Critical Care Time Critical Care Time: Yes Total Critical Care Time: 35 Disposition Clinical Impression: Diastolic congestive heart failure, COPD (chronic obstructive pulmonary disease), Pleural effusion Disposition: ADMITTED IP TO THIS HOSP Condition: Fair Referrals: Harika Cortez MD [Primary Care Provider] - 1-2 days Decision Date: 11/12/22 Decision Time: 21:00
[2022-11-12 17:16] LABS: Basophils % (A) 0 %; Eosinophils % (A) 0 %; HCT 42.8 % (34.0-46.0); HGB 13.7 gm/dL (11.4-16.0); Lymphocytes # (A) 2.1 k/uL (1.0-4.8); Lymphocytes % (A) 21 %; MCH 31.9 pg (25.0-35.0); MCV 99.7 fL (80.0-100.0); Macrocytosis Slight; Mean Platelet Volume 9.2; Monocytes # (A) 0.8 k/uL (0-1.0); Monocytes % (A) 8 %; Neutrophils # (A) 6.6 k/uL (1.3-7.7); Neutrophils % (A) 67 %; Platelet Count 175 k/uL (150-450); WBC 9.9 k/uL (3.8-10.6)
[2022-11-12 17:26] LABS: ALT 71 U/L (4-34); AST 66 U/L (14-36); African American GFR (CKD) 75 (>60 ml/min/1.73 sqM); Albumin 3.6 g/dL (3.5-5.0); Alkaline Phosphatase 112 U/L (38-126); Anion Gap 9 mmol/L; Blood Urea Nitrogen 17 mg/dL (7-17); Calcium 8.4 mg/dL (8.4-10.2); Carbon Dioxide 20 mmol/L (22-30); Chloride 105 mmol/L (98-107); Glucose 113 mg/dL (74-99); INR 1.1 (<1.2); Non-African American GFR(CKD) 65 (>60 ml/min/1.73 sqM); Partial Thromboplastin Time 23.4 sec (22.0-30.0); Potassium 4.2 mmol/L (3.5-5.1); Prothrombin Time 11.5 sec (9.0-12.0); Sodium 134 mmol/L (137-145); Total Protein 6.2 g/dL (6.3-8.2)
--- NOTE | 2022-11-12 17:30 | XR ---
EXAMINATION: XR chest 2V: 11/12/2022 4:59 PM CLINICAL INDICATION: difficulty breathing TECHNIQUE: Departmental protocol COMPARISON: 03/20/2021 FINDINGS: The lungs demonstrate a fine reticular pattern of increased attenuation throughout the mid and lower lung zones, silhouetting the pulmonary vasculature symmetrically. Vascular cephalization is also note d. The pleural spaces are positive for bilateral mild/moderate pleural effusions, greater on the right. The cardiac silhouette is borderline enlarged. The remainder of the mediastinal silhouette is unremar kable. The skeletal structures and soft tissues are negative for acute findings. IMPRESSION: Mild interstitial phase pulmonary edema, presumably cardiogenic etiology, with bilateral pleural effu sions.
[2022-11-12] MEDS ORDERED: FUROSEMIDE 10 MG/ML 4 ML VIAL IV STA (19:46)
[2022-11-12] MEDS ORDERED: MECLIZINE 25 MG TAB PO PRN (21:50)
[2022-11-12] MEDS ORDERED: ACETAMINOPHEN TAB 500 MG TAB PO PRN (21:50)
[2022-11-12] MEDS ORDERED: LORATADINE 10 MG TAB PO PRN (21:50)
[2022-11-12] MEDS: FUROSEMIDE 40 MG TAB PO SCH (23:46)
[2022-11-13] MEDS: [UNRECOGNIZED DRUG - OTHER] PO SCH ×2 (05:07→14:47)
[2022-11-13] MEDS: ALBUTEROL NEBULIZED 2.5 MG/3 ML INHALATION SCH ×2 (07:52→19:52)
--- NOTE | 2022-11-13 08:33 | P.CRDCN ---
History of Present Illness Consult date: 11/13/22 History of present illness: History of Present Illness: The patient is a 67-year-old female with known history of hyperlipidemia, hypertension and a prior history of atrial fibrillation, history of mitral valve disease and coronary artery disease status post cardioversion in March 2022 who has been doing well from the cardiac standpoint, presented to the office rec ently with symptoms progressive dyspnea, palpitations and was noted to be in atrial fibrillation. Her ventricular rate was controlled. She was scheduled to undergo cardioversion this coming Wednesday, yesterday she was having worsening palpitations and dyspnea and came into the emergency room. She has no peripheral edema, no clear PND or orthopnea. She has no chest discomfort. She has mild CAD with evidence of moderate mitral regurgitation circumflex addendum ASD and mitral valve prolapse. She has no history of myocardial infarction. In the emergency room her NT proBNP was mildly elevated. She had no evidence of acute changes on the troponin. An pressure daily she continues to smoke. She has a history of hyperlipidemia and hypertension. Medications: Amiodarone 200 mg twice a day, Crestor 10 mg daily, metoprolol 25 mg twice a day, Premarin, Eliquis 5 mg twice a day Review of Systems: Respiratory: She has dyspnea on exertion and occasional cough, history of chronic tobacco use GI: No nausea or vomiting . No history of peptic ulcer disease. No recent GI bleed. : No hematuria or dysuria. Nervous System: No stroke or seizure. Physical Examination: 67-year-old female, alert and oriented no apparent distress,Blood pressure 135/80, Heart rate 105 Head: Normocephalic. Eyes: Sclerae nonicteric. Neck: Good carotid upstroke, no bruit, no jugular venous distention. Lungs: Clear to auscultation. Heart: Irregular rate and rhythm, S1-S2, no S3, no rub. Holosystolic murmur at the apex. Abdomen: Soft nontender, positive bowel sounds no organomegaly. Extremities: No edema, intact distal pulses. Labs: WBC 9.9, hemoglobin 13.7. Potassium 4.2. BUN 17. Creatinine 0.93. Troponin less than 0.012. NT proBNP 11,800, AST 66, ALT 71. Chest x-ray was mild congestion and bilateral pleural effusion EKG: Atrial fibrillation Atrial fibrillation, rate [address]-T wave changes Impression: 1. Recurrent atrial fibrillation status post cardioversion in 2021 2. Mitral regurgitation 3. Congestive heart failure with preserved systolic function secondary to the atrial fibrillation 4. Mild CAD 5. History of hypertension 6. History of hyperlipidemia Plan: 1. Increase beta neal 2. Proceed with CLEO guided cardioversion tomorrow 3. Changed to oral diuretics 4. Follow her renal functions 5. Evaluate for ablation down the road. 6. Smoking cessation 7. Depending on her progress further recommendations will be made, thank you for this consult we will follow with you. Past Medical History Past Medical History: Atrial Fibrillation, Asthma, Coronary Artery Disease (CAD), Chest Pain / Angina, Heart Failure, COPD, CVA/TIA, GERD/Reflux, Hyperlipidemia, Hypertension, Osteoarthritis (OA), Pneumonia Additional Past Medical History / Comment(s): mitral valve regurgitation, meningioma removals x 2, TIA 01/2019- no residual deficits, sucrose intolerance History of Any Multi-Drug Resistant Organisms: None Reported Past Surgical History: Appendectomy, Cardiac Ablation, Cholecystectomy, Heart Catheterization, Hysterectomy, Orthopedic Surgery Additional Past Surgical History / Comment(s): brain surgery 2002 & 2003 (benign tumors), CLEO, cervical fusion, colonoscopy, L carpal tunnel release Past Anesthesia/Blood Transfusion Reactions: No Reported Reaction Past Psychological History: No Psychological Hx Reported Additional Psychological History / Comment(s): . Smoking Status: Current every day smoker Past Alcohol Use History: None Reported Additional Past Alcohol Use History / Comment(s): Pt started smoking in 1971 smokes 1/2ppd Past Drug Use History: None Reported - Past Family History Father Family Medical History: Deep Vein Thrombosis (DVT) Mother Family Medical History: Coronary Artery Disease (CAD), Hyperlipidemia, Hypertension Additional Family Medical History / Comment(s): Mother is . Brother(s) Family Medical History: Myocardial Infarction ([place]) Medications and Allergies Home Medications Medication Instructions Recorded Confirmed Type Loratadine [Claritin] 10 mg PO HS PRN 03/13/19 11/12/22 History Rosuvastatin Calcium [Crestor] 10 mg PO DAILY 03/13/19 11/12/22 History Simethicone [Gas-X] 125 mg PO DAILY 03/13/19 11/12/22 History Estrogens, Conjugated [Premarin] 0.625 mg PO DAILY 04/05/20 11/12/22 History Sucraid 8500/Ml Solution 2 ml PO AC-BID 04/05/20 11/12/22 History Albuterol Nebulized [Ventolin 2.5 mg INHALATION RT-BID 09/25/20 11/12/22 History Nebulized] Apixaban [Eliquis] 5 mg PO BID 09/25/20 11/12/22 History Acetaminophen Tab [Tylenol Tab] 1,000 mg PO Q6HR PRN 02/27/22 11/12/22 History Meclizine [Antivert] 25 mg PO TID PRN 02/27/22 11/12/22 History Metoprolol Tartrate 25 mg PO BID 02/27/22 11/12/22 History Valsartan 80 mg PO DAILY@1300 11/11/22 11/12/22 History Amiodarone [Cordarone] 200 mg PO BID 11/12/22 11/12/22 History Furosemide [Lasix] 40 mg PO DAILY PRN 11/12/22 11/12/22 History Magnesium Oxide [Magnesium] 500 mg PO DAILY 11/12/22 11/12/22 History Allergies Allergy/AdvReac Type Severity Reaction Status Date / Time rivaroxaban [From Xarelto] Allergy Severe Anaphylaxis,hives, Verified 11/12/22 19:15 throat swelling, sob Physical Exam Vitals: Vital Signs Temp Pulse Pulse Resp BP BP Pulse Ox 11/13/22 08:03 106 H 11/13/22 07:55 97 11/13/22 07:52 120 H 11/13/22 04:00 97.9 F 109 H 19 135/83 96 11/12/22 23:34 97.9 F 117 H 19 123/80 96 11/12/22 23:20 97.1 F L 101 H 18 123/95 95 11/12/22 21:18 100 20 146/99 97 11/12/22 21:00 100 24 146/99 98 11/12/22 18:02 100 11/12/22 17:48 100 11/12/22 16:09 98.5 F 110 H 18 115/62 99 Intake and Output 11/12/22 11/13/22 11/13/22 22:59 06:59 14:59 Output Total 2300 Balance -2300 Output: Urine 2300 Other: Voiding Method Toilet Weight 64.864 kg 65 kg Results 11/12/22 17:07 11/12/22 17:07 Cardiac Enzymes 11/12/22 11/12/22 11/12/22 Range/Units 17:07 17:07 23:06 AST 66 H (14-36) U/L Troponin I <0.012 <0.012 (0.000-0.034) ng/mL 11/13/22 Range/Units 01:24 AST (14-36) U/L Troponin I <0.012 (0.000-0.034) ng/mL Coagulation 11/12/22 Range/Units 17:07 PT 11.5 (9.0-12.0) sec APTT 23.4 (22.0-30.0) sec CBC 11/12/22 Range/Units 17:07 WBC 9.9 (3.8-10.6) k/uL RBC 4.30 (3.80-5.40) m/uL Hgb 13.7 (11.4-16.0) gm/dL Hct 42.8 (34.0-46.0) % Plt Count 175 (150-450) k/uL Comprehensive Metabolic Panel 11/12/22 Range/Units 17:07 Sodium 134 L (137-145) mmol/L Potassium 4.2 (3.5-5.1) mmol/L Chloride 105 (98-107) mmol/L Carbon Dioxide 20 L (22-30) mmol/L BUN 17 (7-17) mg/dL Creatinine 0.93 (0.52-1.04) mg/dL Glucose 113 H (74-99) mg/dL Calcium 8.4 (8.4-10.2) mg/dL AST 66 H (14-36) U/L ALT 71 H (4-34) U/L Alkaline Phosphatase 112 (38-126) U/L Total Protein 6.2 L (6.3-8.2) g/dL Albumin 3.6 (3.5-5.0) g/dL Current Medications Generic Name Dose Route Start Last Admin Trade Name Freq PRN Reason Stop Dose Admin Acetaminophen 1,000 mg 11/12/22 21:50 Acetaminophen Tab 500 Mg Tab PO Q6HR PRN Pain Albuterol Sulfate 2.5 mg 11/13/22 08:00 11/13/22 07:52 Albuterol Nebulized 2.5 Mg/3 Ml INHALATION 2.5 mg RT-BID [facility] Administration Amiodarone HCl 200 mg 11/13/22 09:00 Amiodarone 200 Mg Tab PO BID [facility] Apixaban 5 mg 11/13/22 09:00 Apixaban 5 Mg Tab PO BID [facility] Protocol Atorvastatin Calcium 20 mg 11/13/22 09:00 Atorvastatin 20 Mg Tab PO DAILY [facility] Estrogens Conjugated 0.625 mg 11/13/22 09:00 Estrogens, Conjugated 0.625 Mg Tab PO DAILY [facility] Sodium Chloride 1,000 mls @ 20 mls/hr 11/12/22 16:36 11/12/22 17:14 Saline 0.9% IV 11/13/22 16:35 20 mls/hr .Q24H [facility] Administration Loratadine 10 mg 11/12/22 21:50 Loratadine 10 Mg Tab PO HS PRN Allergy Symptoms Magnesium Oxide 400 mg 11/13/22 09:00 Magnesium Oxide 400 Mg Tab PO DAILY [facility] Meclizine HCl 25 mg 11/12/22 21:50 Meclizine 25 Mg Tab PO TID PRN [facility] Metoprolol Tartrate 25 mg 11/13/22 09:00 Metoprolol Tartrate 25 Mg Tab PO BID [facility] Non-Formulary Medication 2 ml 11/13/22 07:30 11/13/22 05:07 Sucraid 8500/Ml Solution PO Not Given AC-BID [facility] Simethicone 120 mg 11/13/22 09:00 Simethicone 80 Mg Chewable PO DAILY [facility] Valsartan 80 mg 11/13/22 13:00 Valsartan 80 Mg Tab PO DAILY@1300 [facility] Intake and Output 11/12/22 11/13/22 11/13/22 22:59 06:59 14:59 Output Total 2300 Balance -2300 Output: Urine 2300 Other: Voiding Method Toilet Weight 64.864 kg 65 kg 11/12/22 17:07 11/12/22 17:07
[2022-11-13] MEDS ORDERED: FUROSEMIDE 20 MG TAB PO SCH (09:00)
[2022-11-13] MEDS ORDERED: METOPROLOL TARTRATE 25 MG TAB PO SCH (09:00)
[2022-11-13] MEDS: FUROSEMIDE 40 MG TAB PO SCH ×3 (09:03→15:22)
[2022-11-13] MEDS: ATORVASTATIN 20 MG TAB PO SCH (09:15)
[2022-11-13] MEDS: MAGNESIUM OXIDE 400 MG TAB PO SCH (09:15)
[2022-11-13] MEDS: METOPROLOL TARTRATE 50 MG TAB PO SCH ×2 (09:15→18:44)
[2022-11-13] MEDS: APIXABAN 5 MG TAB PO SCH ×2 (09:15→18:44)
[2022-11-13] MEDS: ESTROGENS, CONJUGATED 0.625 MG TAB PO SCH (09:16)
[2022-11-13] MEDS: AMIODARONE 200 MG TAB PO SCH ×2 (09:16→18:43)
[2022-11-13] MEDS: SIMETHICONE 80 MG CHEWABLE PO SCH (09:17)
[2022-11-13] MEDS: VALSARTAN 80 MG TAB PO SCH (12:29)
[2022-11-13 13:14] VITALS: BMI 22.4
--- NOTE | 2022-11-13 13:24 | P.HPIM ---
History of Present Illness H&P Date: 11/13/22 History of present illness; The patient is a 67-year-old female with known history of hyperlipidemia, hypertension and a prior history of atrial fibrillation, history of mitral valve disease and coronary artery disease status post cardioversion in March 2022 who presented to the ER because of worsening shortness of breath. Patient was being seen outpatient by cardiology and was being planned to have cardioversion done this coming Wednesday. Patient was experiencing increased shortness of breath. Was also complaining of palpitations. Patient denied any any chest pain. Denies any swelling of feet. Because of worsening shortness of breath patient admitted to the ER Initial lab work done in the ER showed W was 9.9, hemoglobin 13.7, platelet count 175, sodium 134, potassium 4.2, BUN 17, creatinine 0.93, troponin 0.012, AST 66, ALT 71 Chest x-ray done showed mild interstitial pulmonary edema with bilateral pleural effusions REVIEW OF SYSTEMS: CONSTITUTIONAL: No fever, no malaise, no fatigue. HEENT: No recent visual problems or hearing problems. Denied any sore throat. CARDIOVASCULAR: As mentioned in HPI PULMONARY: As mentioned in HPI GASTROINTESTINAL: No diarrhea, no nausea, no vomiting, no abdominal pain. NEUROLOGICAL: No headaches, no weakness, no numbness. HEMATOLOGICAL: Denies any bleeding or petechiae. GENITOURINARY: Denies any burning micturition, frequency, or urgency. MUSCULOSKELETAL/RHEUMATOLOGICAL: Denies any joint pain, swelling, or any muscle pain. ENDOCRINE: Denies any polyuria or polydipsia. The rest of the 14-point review of systems is negative. PHYSICAL EXAMINATION: GENERAL: The patient is alert and oriented x3, not in any acute distress. Well developed, well nourished. HEENT: Pupils are round and equally reacting to light. EOMI. No scleral icterus. No conjunctival pallor. Normocephalic, atraumatic. No pharyngeal erythema. No thyromegaly. CARDIOVASCULAR: S1 and S2 present. No murmurs, rubs, or gallops. Irregular in rhythm PULMONARY: Chest is clear to auscultation, no wheezing or crackles. ABDOMEN: Soft, nontender, nondistended, normoactive bowel sounds. No palpable organomegaly. MUSCULOSKELETAL: No joint swelling or deformity. EXTREMITIES: No cyanosis, clubbing, or pedal edema. NEUROLOGICAL: Gross neurological examination did not reveal any focal deficits. SKIN: No rashes. Assessment and plan Recurrent atrial fibrillation status post cardioversion in 2021 Mitral regurgitation Acute on chronic Congestive heart failure with preserved systolic function 4. Mild CAD 5. History of hypertension 6. History of hyperlipidemia Elevated liver enzymes Lactic acidosis Monitor vital signs Monitor CBC Monitor CMP Continue telemetry monitoring Trend troponins. Continue amiodarone and Eliquis Continue Lipitor Continue Lopressor and diovan Resume home meds Consult cardiology Labs and medication were reviewed.. Continue same treatment. Continue with symptomatic treatment. Resume home medication. Monitor labs and vitals. DVT and GI prophylaxis. Further recommendations as per clinical course of the patient Past Medical History Past Medical History: Atrial Fibrillation, Asthma, Coronary Artery Disease (CAD), Chest Pain / Angina, Heart Failure, COPD, CVA/TIA, GERD/Reflux, Hyperlipidemia, Hypertension, Osteoarthritis (OA), Pneumonia Additional Past Medical History / Comment(s): mitral valve regurgitation, meningioma removals x 2, TIA 01/2019- no residual deficits, sucrose intolerance History of Any Multi-Drug Resistant Organisms: None Reported Past Surgical History: Appendectomy, Cardiac Ablation, Cholecystectomy, Heart Catheterization, Hysterectomy, Orthopedic Surgery Additional Past Surgical History / Comment(s): brain surgery 2002 & 2004 (benign tumors), CLEO, cervical fusion, colonoscopy, L carpal tunnel release Past Anesthesia/Blood Transfusion Reactions: No Reported Reaction Past Psychological History: No Psychological Hx Reported Additional Psychological History / Comment(s): . Smoking Status: Current every day smoker Past Alcohol Use History: None Reported Additional Past Alcohol Use History / Comment(s): Pt started smoking in 1971 smokes 1/2ppd Past Drug Use History: None Reported - Past Family History Father Family Medical History: Deep Vein Thrombosis (DVT) Mother Family Medical History: Coronary Artery Disease (CAD), Hyperlipidemia, Hypertension Additional Family Medical History / Comment(s): Mother is . Brother(s) Family Medical History: Myocardial Infarction (SD) Medications and Allergies Home Medications Medication Instructions Recorded Confirmed Type Loratadine [Claritin] 10 mg PO HS PRN 03/13/19 11/12/22 History Rosuvastatin Calcium [Crestor] 10 mg PO DAILY 03/13/19 11/12/22 History Simethicone [Gas-X] 125 mg PO DAILY 03/13/19 11/12/22 History Estrogens, Conjugated [Premarin] 0.625 mg PO DAILY 04/05/20 11/12/22 History Sucraid 8500/Ml Solution 2 ml PO AC-BID 04/05/20 11/12/22 History Albuterol Nebulized [Ventolin 2.5 mg INHALATION RT-BID 09/25/20 11/12/22 History Nebulized] Apixaban [Eliquis] 5 mg PO BID 09/25/20 11/12/22 History Acetaminophen Tab [Tylenol Tab] 1,000 mg PO Q6HR PRN 02/27/22 11/12/22 History Meclizine [Antivert] 25 mg PO TID PRN 02/27/22 11/12/22 History Metoprolol Tartrate 25 mg PO BID 02/27/22 11/12/22 History Valsartan 80 mg PO DAILY@1300 11/11/22 11/12/22 History Amiodarone [Cordarone] 200 mg PO BID 11/12/22 11/12/22 History Furosemide [Lasix] 40 mg PO DAILY PRN 11/12/22 11/12/22 History Magnesium Oxide [Magnesium] 500 mg PO DAILY 11/12/22 11/12/22 History Allergies Allergy/AdvReac Type Severity Reaction Status Date / Time rivaroxaban [From Xarelto] Allergy Severe Anaphylaxis,hives, Verified 11/12/22 19:15 throat swelling, sob Physical Exam Vitals: Vital Signs Temp Pulse Pulse Resp BP BP Pulse Ox 11/13/22 09:22 98.0 F 122 H 18 136/72 96 11/13/22 08:03 106 H 11/13/22 07:55 97 11/13/22 07:52 120 H 11/13/22 04:00 97.9 F 109 H 19 135/83 96 11/12/22 23:34 97.9 F 117 H 19 123/80 96 11/12/22 23:20 97.1 F L 101 H 18 123/95 95 11/12/22 21:18 100 20 146/99 97 11/12/22 21:00 100 24 146/99 98 11/12/22 18:02 100 11/12/22 17:48 100 11/12/22 16:09 98.5 F 110 H 18 115/62 99 Intake and Output 0711/13/22 11/13/22 22:59 06:59 14:59 Intake Total 110 Output Total 2300 Balance -2300 110 Intake: IV 10 Invasive Line 1 10 Oral 100 Output: Urine 2300 Other: Voiding Method Toilet Toilet Weight 64.864 kg 65 kg Results CBC & Chem 7: 11/12/22 17:07 11/12/22 17:07 Labs: Abnormal Lab Results - Last 24 Hours (Table) 11/12/22 11/12/22 11/12/22 Range/Units 17:07 17:07 23:06 Sodium 134 L (137-145) mmol/L Carbon Dioxide 20 L (22-30) mmol/L Glucose 113 H (74-99) mg/dL Plasma Lactic Acid Kartik 2.2 H* 2.1 H* (0.7-2.0) mmol/L AST 66 H (14-36) U/L ALT 71 H (4-34) U/L Total Protein 6.2 L (6.3-8.2) g/dL Thrombosis Risk Factor Assmnt - Choose All That Apply Any of the Below Risk Factors Present?: Yes Each Risk Factor Represents 2 Points: Age 61-74 years Thrombosis Risk Factor Assessment Total Risk Factor Score: 2 Thrombosis Risk Factor Assessment Level: Low Risk
[2022-11-14] MEDS: APIXABAN 5 MG TAB PO SCH ×2 (08:01→20:10)
[2022-11-14] MEDS: SIMETHICONE 80 MG CHEWABLE PO SCH (08:01)
[2022-11-14] MEDS: ATORVASTATIN 20 MG TAB PO SCH (08:01)
[2022-11-14] MEDS: FUROSEMIDE 40 MG TAB PO SCH (08:02)
[2022-11-14] MEDS: METOPROLOL TARTRATE 50 MG TAB PO SCH (08:02)
[2022-11-14] MEDS: MAGNESIUM OXIDE 400 MG TAB PO SCH (08:02)
[2022-11-14] MEDS: AMIODARONE 200 MG TAB PO SCH (08:02)
[2022-11-14] MEDS: ESTROGENS, CONJUGATED 0.625 MG TAB PO SCH (08:03)
[2022-11-14 08:34] LABS: African American GFR (CKD) 54 (>60 ml/min/1.73 sqM); Anion Gap 7 mmol/L; Blood Urea Nitrogen 31 mg/dL (7-17); Calcium 8.9 mg/dL (8.4-10.2); Carbon Dioxide 31 mmol/L (22-30); Chloride 97 mmol/L (98-107); Glucose 96 mg/dL (74-99); Non-African American GFR(CKD) 47 (>60 ml/min/1.73 sqM); Potassium 4.3 mmol/L (3.5-5.1); Sodium 135 mmol/L (137-145)
[2022-11-14] MEDS: ALBUTEROL NEBULIZED 2.5 MG/3 ML INHALATION SCH ×2 (08:58→21:30)
[2022-11-14] MEDS: [UNRECOGNIZED DRUG - OTHER] PO SCH ×2 (09:25→15:59)
[2022-11-14] MEDS ORDERED: PROPOFOL 10 MG/ML 20 ML VIAL IV ONE (09:50)
[2022-11-14] MEDS ORDERED: LACTATED RINGERS 1,000 ML IV ONE (09:53)
[2022-11-14] MEDS ORDERED: BENZOCAINE SPRAY 1 CAN TOPICAL ONE ×2 (09:55→09:58)
--- NOTE | 2022-11-14 10:16 | P.PN ---
Subjective Progress Note Date: 11/14/22 PROGRESS NOTE The patient is a 67-year-old female with known history of hyperlipidemia, hypertension and a prior history of atrial fibrillation, history of mitral valve disease and coronary artery disease status post cardioversion in March 2022 who has been doing well from the cardiac standpoint, presented to the office recently with symptoms progressive dyspnea, palpitations and was noted to be in atrial fibrillation. Her ventricular rate was controlled. She was scheduled to undergo cardioversion this coming Wednesday, yesterday she was having worsening palpitations and dyspnea and came into the emergency room. She has no peripheral edema, no clear PND or orthopnea. She has no chest discomfort. She has mild CAD with evidence of moderate mitral regurgitation , secundum ASD and mitral valve prolapse. She has no history of myocardial infarction. In the emergency room her NT proBNP was mildly elevated. She had no evidence of acute changes on the troponin. She continues to smoke. She has a history of hyperlipidemia and hypertension. November 14 The patient feels better today, her breathing is better. She denies any chest discomfort, dizziness or palpitations. She continues to be in atrial fibrillation with controlled ventricular response. She was diuresed yesterday. She has no nausea or vomiting. She is scheduled to undergo CLEO guided cardioversion Medications: Amiodarone 200 mg twice a day, Lipitor 20 daily, Lasix 40 mg twice a day, metoprolol 50 mg twice a day, Diovan 80 mg daily,Eliquis 5 mg twice a day PHYSICAL EXAMINATION: Blood pressure 123/73 heart rate 90 LUNGS: Clear to auscultation HEART: Irregular rate and rhythm, S1, S2. No S3 holosystolic murmur ABDOMEN: Soft, nontender, no organomegaly EXTREMETIES: No edema LAB: BUN 31, creatinine 1.21, TSH 1.1 IMPRESSION: 1. Recurrent atrial fibrillation, symptomatic 2. History of moderate mitral regurgitation 3. Chronic tobacco use 4. Hypertension 5. Secundum ASD PLAN: 1. Proceed with CLEO guided cardioversion 2. Depending on her response further adjustment will be made 3. Adjust medical therapy according to her rate after 4. Smoking cessation 5. Evaluate for ablation at a later time Objective - Vital Signs Vital signs: Vital Signs Temp 97.6 F 11/14/22 07:59 Pulse 94 11/14/22 09:12 Resp 16 11/14/22 07:59 BP 123/73 11/14/22 07:59 Pulse Ox 98 11/14/22 08:58 FiO2 Intake & Output 11/13/22 11/14/22 11/14/22 18:59 06:59 18:59 Intake Total 690 Output Total 1000 Balance 690 -1000 Weight 65 kg 62 kg Intake: IV 10 Invasive Line 1 10 Oral 680 Output: Urine 1000 Other: Voiding Method Toilet Toilet # Voids 5 0 - Labs CBC & Chem 7: 11/12/22 17:07 11/14/22 07:54 Labs: Abnormal Lab Results - Last 24 Hours (Table) 11/14/22 Range/Units 07:54 Sodium 135 L (137-145) mmol/L Chloride 97 L (98-107) mmol/L Carbon Dioxide 31 H (22-30) mmol/L BUN 31 H (7-17) mg/dL Creatinine 1.21 H (0.52-1.04) mg/dL
--- NOTE | 2022-11-14 10:18 | P.PCN ---
Date of Procedure: 11/14/22 Description of Procedure: Indication: Atrial fibrillation Procedure Description: After explaining the procedure to the patient, it's risk and complications, blood pressure, heart rate and O2 saturation were monitored. The throat was sprayed with Cetacaine. Patient received sedation per anesthesia department. The probe was introduced into the esophagus without difficulty. Images were obtained. Following that, the probe was removed. There was no immediate complication. Findings: Left atrial size is dilated, left atrial appendage is normal. The ventricle size is normal with global hypokinesis. Ejection fraction 40-45%. Aortic valve revealed fibrocalcific changes with preserved opening. Thickened mitral valve leaflets was noted with mild prolapse. Tricuspid valve appears to be normal. Descending thoracic aorta appears to be normal. No pericardial effusion was noted. Contrast bubble study revealed no shunting across the intra-atrial septum. Doppler: Pulse wave and color Doppler were obtained, an revealed moderate mitral and tricuspid regurgitation. Evidence of secundum ASD with [id number] shunting was noted. Mild aortic regurgitation was noted. Conclusion: 1. Dilated left atrium with normal appearance of the left atrial appendage 2. Moderate global hypokinesis of the left ventricle 3. Moderate mitral and tricuspid regurgitation 4. And mild aortic regurgitation 5. Secundum ASD with left to right shunting Cardioversion: After obtaining a CLEO and obtaining sedated state synchronize biphasic cardioversion using 150 J was performed with uatsdin of sinus mechanism. There was no immediate complications.
[2022-11-14] MEDS: VALSARTAN 80 MG TAB PO SCH (12:26)
--- NOTE | 2022-11-14 13:51 | P.PN ---
Subjective Progress Note Date: 11/14/22 The patient is a 67-year-old female with known history of hyperlipidemia, hypertension and a prior history of atrial fibrillation, history of mitral valve disease and coronary artery disease status post cardioversion in March 2022 who presented to the ER because of worsening shortness of breath. Patient was being seen outpatient by cardiology and was being planned to have cardioversion done this coming Wednesday. Patient was experiencing increased shortness of breath. Was also complaining of palpitations. Patient denied any any chest pain. Denies any swelling of feet. Because of worsening shortness of breath patient admitted to the ER Initial lab work done in the ER showed W was 9.9, hemoglobin 13.7, platelet count 175, sodium 134, potassium 4.2, BUN 17, creatinine 0.93, troponin 0.012, AST 66, ALT 71 Chest x-ray done showed mild interstitial pulmonary edema with bilateral pleural effusions 11/14. Patient seen and examined. Patient underwent CLEO with cardioversion today. She became hypotensive the procedure, was given fluid hydration REVIEW OF SYSTEMS: CONSTITUTIONAL: No fever, no malaise,. CARDIOVASCULAR: No chest pain, no palpitations, no syncope. PULMONARY: No shortness of breath, no cough, GASTROINTESTINAL: No diarrhea, no nausea, no vomiting, no abdominal pain. NEUROLOGICAL: No headaches, no weakness, PHYSICAL EXAMINATION: GENERAL: The patient is alert and oriented x3, not in any acute distress. Well developed, well nourished. HEENT: Pupils are round and equally reacting to light. EOMI. No scleral icterus. No conjunctival pallor. Normocephalic, atraumatic. No pharyngeal erythema. No thyromegaly. CARDIOVASCULAR: S1 and S2 present. No murmurs, rubs, or gallops. PULMONARY: Chest is clear to auscultation, no wheezing or crackles. ABDOMEN: Soft, nontender, nondistended, normoactive bowel sounds. No palpable organomegaly. MUSCULOSKELETAL: No joint swelling or deformity. EXTREMITIES: No cyanosis, clubbing, or pedal edema. NEUROLOGICAL: Gross neurological examination did not reveal any focal deficits. SKIN: No rashes. Assessment and plan Recurrent atrial fibrillation status post cardioversion in 2021 Mitral regurgitation Acute on chronic Congestive heart failure with preserved systolic function Mild CAD History of hypertension History of hyperlipidemia Elevated liver enzymes Lactic acidosis Monitor vital signs Monitor CBC Monitor CMP Continue telemetry monitoring Status post CLEO with cardioversion Continue amiodarone 200 mg daily Continue Eliquis Continue Lasix Follow-up on cardiology recommendations Labs and medication were reviewed.. Continue same treatment. Continue with symptomatic treatment. Resume home medication. Monitor labs and vitals. DVT and GI prophylaxis. Further recommendations as per clinical course of the patient Objective - Vital Signs Vital signs: Vital Signs Temp 97.6 F 11/14/22 07:59 Pulse 48 L 11/14/22 10:45 Resp 16 11/14/22 10:45 BP 97/58 11/14/22 10:45 Pulse Ox 100 11/14/22 10:45 FiO2 Intake & Output 11/13/22 11/14/22 11/14/22 18:59 06:59 18:59 Intake Total 690 0 Output Total 1000 Balance 690 -1000 0 Weight 65 kg 62 kg Intake: IV 10 0 Invasive Line 1 10 Oral 680 Output: Urine 1000 Other: Voiding Method Toilet Toilet # Voids 5 0 - Labs CBC & Chem 7: 11/12/22 17:07 11/14/22 07:54 Labs: Abnormal Lab Results - Last 24 Hours (Table) 11/14/22 Range/Units 07:54 Sodium 135 L (137-145) mmol/L Chloride 97 L (98-107) mmol/L Carbon Dioxide 31 H (22-30) mmol/L BUN 31 H (7-17) mg/dL Creatinine 1.21 H (0.52-1.04) mg/dL
[2022-11-14] MEDS: METOPROLOL TARTRATE 25 MG TAB PO SCH (19:34)
[2022-11-14 23:01] VITALS: RESP 16
[2022-11-15] MEDS: [UNRECOGNIZED DRUG - OTHER] PO SCH (06:06)
[2022-11-15] MEDS: ALBUTEROL NEBULIZED 2.5 MG/3 ML INHALATION SCH (07:34)
[2022-11-15 07:56] VITALS: TEMP 97.5
[2022-11-15] MEDS: ATORVASTATIN 20 MG TAB PO SCH (07:58)
[2022-11-15] MEDS: APIXABAN 5 MG TAB PO SCH (07:59)
[2022-11-15] MEDS: METOPROLOL TARTRATE 25 MG TAB PO SCH (07:59)
[2022-11-15] MEDS: MAGNESIUM OXIDE 400 MG TAB PO SCH (07:59)
[2022-11-15] MEDS: SIMETHICONE 80 MG CHEWABLE PO SCH (08:00)
[2022-11-15] MEDS: ESTROGENS, CONJUGATED 0.625 MG TAB PO SCH (08:01)
[2022-11-15 08:40] LABS: African American GFR (CKD) 49 (>60 ml/min/1.73 sqM); Anion Gap 7 mmol/L; Blood Urea Nitrogen 27 mg/dL (7-17); Calcium 8.2 mg/dL (8.4-10.2); Carbon Dioxide 29 mmol/L (22-30); Chloride 96 mmol/L (98-107); Glucose 96 mg/dL (74-99); Non-African American GFR(CKD) 42 (>60 ml/min/1.73 sqM); Potassium 4.3 mmol/L (3.5-5.1); Sodium 132 mmol/L (137-145)
[2022-11-15] MEDS ORDERED: AMIODARONE 200 MG TAB PO SCH (09:00)
[2022-11-15] MEDS ORDERED: FUROSEMIDE 40 MG TAB PO SCH (09:00)
--- NOTE | 2022-11-15 10:23 | P.PN ---
Subjective Progress Note Date: 11/15/22 PROGRESS NOTE The patient is a 67-year-old female with known history of hyperlipidemia, hypertension and a prior history of atrial fibrillation, history of mitral valve disease and coronary artery disease status post cardioversion in March 2022 who has been doing well from the cardiac standpoint, presented to the office recently with symptoms progressive dyspnea, palpitations and was noted to be in atrial fibrillation. Her ventricular rate was controlled. She was scheduled to undergo cardioversion this coming Wednesday, yesterday she was having worsening palpitations and dyspnea and came into the emergency room. She has no peripheral edema, no clear PND or orthopnea. She has no chest discomfort. She has mild CAD with evidence of moderate mitral regurgitation , secundum ASD and mitral valve prolapse. She has no history of myocardial infarction. In the emergency room her NT proBNP was mildly elevated. She had no evidence of acute changes on the troponin. She continues to smoke. She has a history of hyperlipidemia and hypertension. November 14 The patient feels better today, her breathing is better. She denies any chest discomfort, dizziness or palpitations. She continues to be in atrial fibrillation with controlled ventricular response. She was diuresed yesterday. She has no nausea or vomiting. She is scheduled to undergo CLEO guided cardioversion November 15: She underwent cardioversion yesterday with confucianism of sinus mechanism. She feels better today, ambulating without difficulty. She denies any dizziness, palpitations or syncope. Her echocardiogram showed moderately impaired left ventricular systolic function. Medications: Amiodarone 200 mg once a day, Lipitor 20 daily, Lasix 40 mg once a day, metoprolol 25 mg twice a day, Diovan 80 mg daily,Eliquis 5 mg twice a day PHYSICAL EXAMINATION: Blood pressure 113/50 heart rate 55 LUNGS: Clear to auscultation HEART: Regular rate and rhythm, S1, S2. No S3 holosystolic murmur ABDOMEN: Soft, nontender, no organomegaly EXTREMETIES: No edema LAB: BUN 27, creatinine 1.3 to, potassium 4.3 IMPRESSION: 1. Recurrent atrial fibrillation, symptomatic, status post cardioversion, maintaining sinus mechanism 2. History of moderate mitral regurgitation 3. Chronic tobacco use 4. Hypertension 5. Secundum ASD PLAN: 1. Continue present therapy 2. Discharged home today 3. Follow renal function as outpatient 4. Follow-up in one week 5. Evaluation for ablation Objective - Vital Signs Vital signs: Vital Signs Temp 97.5 F L 11/15/22 07:54 Pulse 57 L 11/15/22 07:54 Resp 16 11/15/22 07:54 BP 113/52 11/15/22 07:54 Pulse Ox 98 11/15/22 07:54 FiO2 Intake & Output 11/14/22 11/15/22 11/15/22 18:59 06:59 18:59 Intake Total 218 118 Balance 218 118 Weight 62.7 kg Intake: IV 100 Oral 118 118 Other: Voiding Method Toilet # Voids 1 - Labs CBC & Chem 7: 11/12/22 17:07 11/15/22 07:41 Labs: Abnormal Lab Results - Last 24 Hours (Table) 11/15/22 Range/Units 07:41 Sodium 132 L (137-145) mmol/L Chloride 96 L (98-107) mmol/L BUN 27 H (7-17) mg/dL Creatinine 1.32 H (0.52-1.04) mg/dL Calcium 8.2 L (8.4-10.2) mg/dL
[2022-11-15] MEDS: VALSARTAN 80 MG TAB PO SCH (12:42)
[2022-11-15 12:43] VITALS: BP 101/51; PULSE 52
--- NOTE | 2022-11-15 13:09 | P.DS ---
Providers Date of admission: 11/12/22 21:47 Expected date of discharge: 11/15/22 Attending physician: Kyaw Dia Consults: 11/12/22 21:46 Consult Physician Routine Consulting Provider: Sonya Helton Consult Reason/Comments: A. fib, CHF Do you want consulting provider notified?: Yes, Notify in am Primary care physician: Harika Cortez Hospital Course: Discharge diagnoses; Recurrent atrial fibrillation status post cardioversion in 2021 Mitral regurgitation Acute on chronic Congestive heart failure with preserved systolic function Mild CAD History of hypertension History of hyperlipidemia Elevated liver enzymes Lactic acidosis Hospital course; The patient is a 67-year-old female with known history of hyperlipidemia, hypertension and a prior history of atrial fibrillation, history of mitral valve disease and coronary artery disease status post cardioversion in March 2022 who presented to the ER because of worsening shortness of breath. Patient was being seen outpatient by cardiology and was being planned to have cardioversion done this coming Wednesday. Patient was experiencing increased shortness of breath. Was also complaining of palpitations. Patient denied any any chest pain. Denies any swelling of feet. Because of worsening shortness of breath patient admitted to the ER Initial lab work done in the ER showed W was 9.9, hemoglobin 13.7, platelet count 175, sodium 134, potassium 4.2, BUN 17, creatinine 0.93, troponin 0.012, AST 66, ALT 71 Chest x-ray done showed mild interstitial pulmonary edema with bilateral pleural effusions 11/14. Patient seen and examined. Patient underwent CLEO with cardioversion today. She became hypotensive the procedure, was given fluid hydration 11/15. Patient seen and examined. Status post CLEO with cardioversion, currently in sinus rhythm. Being discharged in stable condition. Cardiology recommended outpatient follow-up PHYSICAL EXAMINATION: GENERAL: The patient is alert and oriented x3, not in any acute distress. Well developed, well nourished. HEENT: Pupils are round and equally reacting to light. EOMI. No scleral icterus. No conjunctival pallor. Normocephalic, atraumatic. No pharyngeal erythema. No thyromegaly. CARDIOVASCULAR: S1 and S2 present. No murmurs, rubs, or gallops. PULMONARY: Chest is clear to auscultation, no wheezing or crackles. ABDOMEN: Soft, nontender, nondistended, normoactive bowel sounds. No palpable organomegaly. MUSCULOSKELETAL: No joint swelling or deformity. EXTREMITIES: No cyanosis, clubbing, or pedal edema. NEUROLOGICAL: Gross neurological examination did not reveal any focal deficits. SKIN: No rashes. Patient Condition at Discharge: Fair Plan - Discharge Summary Discharge Rx Participant: No New Discharge Prescriptions: Continue Loratadine [Claritin] 10 mg PO HS PRN PRN Reason: Allergy Symptoms Simethicone [Gas-X] 125 mg PO DAILY Rosuvastatin Calcium [Crestor] 10 mg PO DAILY Estrogens, Conjugated [Premarin] 0.625 mg PO DAILY Sucraid 8500/Ml Solution 2 ml PO AC-BID Valsartan 80 mg PO DAILY@1300 Furosemide [Lasix] 40 mg PO DAILY PRN PRN Reason: Edema Albuterol Nebulized [Ventolin Nebulized] 2.5 mg INHALATION RT-BID Apixaban [Eliquis] 5 mg PO BID Acetaminophen Tab [Tylenol] 1,000 mg PO Q6HR PRN PRN Reason: Pain Metoprolol Tartrate 25 mg PO BID Meclizine [Antivert] 25 mg PO TID PRN PRN Reason: VERTIGO Magnesium Oxide [Magnesium] 500 mg PO DAILY Amiodarone [Cordarone] 200 mg PO BID Discharge Medication List Loratadine [Claritin] 10 mg PO HS PRN 03/13/19 [History] Rosuvastatin Calcium [Crestor] 10 mg PO DAILY 03/13/19 [History] Simethicone [Gas-X] 125 mg PO DAILY 03/13/19 [History] Estrogens, Conjugated [Premarin] 0.625 mg PO DAILY 04/05/20 [History] Sucraid 8500/Ml Solution 2 ml PO AC-BID 04/05/20 [History] Albuterol Nebulized [Ventolin Nebulized] 2.5 mg INHALATION RT-BID 09/25/20 [History] Apixaban [Eliquis] 5 mg PO BID 09/25/20 [History] Acetaminophen Tab [Tylenol] 1,000 mg PO Q6HR PRN 02/27/22 [History] Meclizine [Antivert] 25 mg PO TID PRN 02/27/22 [History] Metoprolol Tartrate 25 mg PO BID 02/27/22 [History] Valsartan 80 mg PO DAILY@1300 11/11/22 [History] Amiodarone [Cordarone] 200 mg PO BID 11/12/22 [History] Furosemide [Lasix] 40 mg PO DAILY PRN 11/12/22 [History] Magnesium Oxide [Magnesium] 500 mg PO DAILY 11/12/22 [History] Follow up Appointment(s)/Referral(s): Sonya Helton MD [STAFF PHYSICIAN] - 1 Week (Office is closed. Please call to schedule appointment) Harika Cortez MD [Primary Care Provider] - 1-2 days (Office is closed. Please call to schedule appointment) Patient Instructions/Handouts: Cardioversion (DC) Discharge Disposition: HOME SELF-CARE
== END 2022-11-15 13:52 | disposition home or self-care (01) | DRG 308 ==
LOC: EC 16:02 → 3SCARD 21:47
PROVIDERS: ADMIT Hospitalist; ATTEND Hospitalist
PROC: 5A2204Z Restoration of Cardiac Rhythm, Single (ICD-10-PCS; 2022-11-14)
PROC: B24BZZ4 Ultrasonography of Heart with Aorta, Transesophageal (ICD-10-PCS; principal; 2022-11-14 10:15)
DX: I48.91 Unspecified atrial fibrillation (principal); I50.33 Acute on chronic diastolic (congestive) heart failure; E87.20 Acidosis, unspecified; Q21.11 Secundum atrial septal defect; I11.0 Hypertensive heart disease with heart failure; I95.9 Hypotension, unspecified; J44.9 Chronic obstructive pulmonary disease, unspecified; F17.210 Nicotine dependence, cigarettes, uncomplicated; E74.31 Sucrase-isomaltase deficiency; I08.3 Combined rheumatic disorders of mitral, aortic and tricuspid valves; I25.10 Atherosclerotic heart disease of native coronary artery without angina pectoris; E78.5 Hyperlipidemia, unspecified; Z86.73 Personal history of transient ischemic attack (TIA), and cerebral infarction without residual deficits; Z86.011 Personal history of benign neoplasm of the brain; Z82.49 Family history of ischemic heart disease and other diseases of the circulatory system; Z79.899 Other long term (current) drug therapy; Z79.01 Long term (current) use of anticoagulants; Z79.51 Long term (current) use of inhaled steroids; Z88.8 Allergy status to other drugs, medicaments and biological substances
CPT/HCPCS: 36415; 71046; 80048; 80053; 83605; 83880; 84443; 84484; 85025; 85610; 85730; 92960; 93005; 93312; 93320; 93325; 94640; 94760; 96374; 96375; 99291

== ENCOUNTER 2023-02-11 10:59 | Observation (INO) | payer BC, MEDICARE ==
[~2023-02-11 10:59] MED LIST changes: -ALPRAZolam 0.25 MG TAB PO PRN; -ALPRAZolam 0.5 MG TAB PO PRN; -ASPIRIN 325 MG TAB PO STA; -ATORVASTATIN 80 MG TAB PO STA; -HEPARIN SODIUM,PORCINE 10,000 UNIT in SODIUM CHLORIDE 0.9% 1,000 ML IRRIGATION PRN; -HEPARIN SODIUM,PORCINE 2,500 UNIT in SODIUM CHLORIDE 0.9% 250 ML IRRIGATION PRN; +HYDROmorphone 0.5 MG/0.5 ML SYRINGE IVP PRN; +LACTATED RINGERS 1,000 ML IV SCH; +MIDAZOLAM 2 MG/2 ML VIAL IV PRN; -NITROGLYCERIN SL TABS 0.4 MG TAB SUBLINGUAL PRN; +SODIUM CHLORIDE 0.9% 1,000 ML IV SCH
[2023-02-11] MEDS ORDERED: SODIUM CHLORIDE 0.9% 1,000 ML IV ONE (11:38)
[2023-02-11] MEDS ORDERED: DEXAMETHASONE SOD PHOSPHATE 4 MG/ML 1 ML VIAL ONE (13:18)
[2023-02-11] MEDS ORDERED: SUCCINYLCHOLINE CHLORIDE 200 MG/10 ML VIAL IV ONE (13:18)
[2023-02-11] MEDS ORDERED: MIDAZOLAM 2 MG/2 ML VIAL ONE (13:18)
[2023-02-11] MEDS ORDERED: PROTAMINE SULFATE 10 MG/ML 5 ML VIAL ONE (13:18)
[2023-02-11] MEDS ORDERED: GLYCOPYRROLATE 0.2 MG/ML 2 ML VIAL ONE (13:18)
[2023-02-11] MEDS ORDERED: ROCURONIUM 10 MG/ML (5 ML VIAL) IV ONE (13:18)
[2023-02-11] MEDS ORDERED: ONDANSETRON 4 MG/2 ML VIAL ONE (13:18)
[2023-02-11] MEDS ORDERED: PHENYLEPHRINE-0.9% NACL SYG 1,000 MCG/10 ML SYRINGE ONE (13:18)
[2023-02-11] MEDS ORDERED: LIDOCAINE 1% INJ 10MG/ML (20 ML MDV) ONE (13:18)
[2023-02-11] MEDS ORDERED: HEPARIN SODIUM,PORCINE 10,000 UNIT/ML 1 ML VIAL ONE (13:18)
[2023-02-11] MEDS ORDERED: PROPOFOL 10 MG/ML 20 ML VIAL IV ONE (13:18)
[2023-02-11] MEDS ORDERED: FUROSEMIDE 10 MG/ML 2 ML VIAL ONE (13:18)
[2023-02-11] MEDS ORDERED: NEOSTIGMINE 1 MG/ML 10 ML VIAL ONE (13:18)
[2023-02-11] MEDS ORDERED: fentaNYL (PF) 50 MCG/ML 2 ML AMP ONE (13:18)
[2023-02-11] MEDS ORDERED: HEPARIN SOD,PORK IN 0.45% NACL 25,000 UNIT in 0.45% NACL 1 250ML.BAG IV ONE (13:52)
[2023-02-11] MEDS ORDERED: LIDOCAINE 1% INJ 10MG/ML (20 ML MDV) SQ ONE (13:52)
[2023-02-11] MEDS ORDERED: LACTATED RINGERS 1,000 ML IV ONE (17:00)
[2023-02-11] MEDS ORDERED: HEPARIN SODIUM (1,000 UNIT/ML) 1,000 UNIT in SODIUM CHLORIDE 0.9% 1,000 ML IRRIGATION ONE (17:42)
[2023-02-11] MEDS ORDERED: IOPAMIDOL-370 100ML BTL INJ ONE (17:43)
[2023-02-11] MEDS ORDERED: MECLIZINE 25 MG TAB PO PRN (17:56)
[2023-02-11] MEDS ORDERED: ACETAMINOPHEN IV (For NPO) 1,000 MG in EMPTY BAG 1 BAG IVPB ONE (17:57)
--- NOTE | 2023-02-11 18:06 | P.HPCAR ---
History of Present Illness This is Dr. Gomez dictating an H/P on this patient The patient was interviewed and examined IMPRESSION / ASSESSMENT: Persistent atrial fibrillation, symptomatic with heart failure symptoms Left atrial enlargement, significant 3+ mitral regurgitation Failed electrical cardioversion with oral amiodarone Recent hospitalization for congestive heart failure History of TIA Moderate cardiomyopathy Nonobstructive CAD, PLAN: A. fib ablation Reassessment of antiarrhythmic drugs thereafter HPI Patient is asymptomatic. She is back in atrial fibrillation with RVR She complains of shortness of breath with minimal exertion and vague discomfort in the chest She is uncertain CAD with severe cardio myopathy Today she is able to lie flat in bed. Prominent external jugular veins No loss of consciousness ROS: No fever chills or rigors, no cough, phlegm or expectoration, no nausea, vomiting or diarrhea, no hematuria, dysuria, no musculoskeletal complaints, no strokes or seizures, no skin lesions. EXAMINATION: Heart sounds are irregular and rapid Breath sounds are reduced bilaterally Abdomen soft Soft systolic murmur over the precordium REVIEW OF LABS, ECG & MEDICAL DATA Patient is on ELIQUIS and oral amiodarone metoprolol, valsartan She is also on rosuvastatin Physical Exam Vitals: Vital Signs Temp Pulse Resp BP Pulse Ox 02/11/23 17:55 96.8 F L 89 20 96/50 99 Intake and Output 02/11/23 02/11/23 02/11/23 06:59 14:59 22:59 Intake Total 975 978 Balance 975 978 Intake: IV 975 978 Past Medical History Past Medical History: Atrial Fibrillation, Asthma, Coronary Artery Disease (CAD), Chest Pain / Angina, Heart Failure, COPD, CVA/TIA, GERD/Reflux, Hyperlipidemia, Hypertension, Osteoarthritis (OA), Pneumonia Additional Past Medical History / Comment(s): SEE DR. GOMEZ'S H&P. Pleural effusion, cardiomyopathy, aortic/mitral valve regurgitation, meningioma removals x 2, TIA 01/2019- no residual deficits, sucrose intolerance History of Any Multi-Drug Resistant Organisms: None Reported Past Surgical History: Appendectomy, Cardiac Ablation, Cholecystectomy, Heart Catheterization, Hysterectomy, Orthopedic Surgery Additional Past Surgical History / Comment(s): brain surgery 2002 & 2004 (benign tumors), TEEs, cardioversions, cervical fusion, colonoscopy, L carpal tunnel release Past Anesthesia/Blood Transfusion Reactions: No Reported Reaction Smoking Status: Current every day smoker - Past Family History Father Family Medical History: Deep Vein Thrombosis (DVT) Mother Family Medical History: Coronary Artery Disease (CAD), Hyperlipidemia, Hypertension Additional Family Medical History / Comment(s): Mother is . Brother(s) Family Medical History: Myocardial Infarction (HI) Physical Examination Vital Signs Temp Pulse Resp BP Pulse Ox 02/11/23 17:55 96.8 F L 89 20 96/50 99 Intake and Output 02/11/23 02/11/23 02/11/23 06:59 14:59 22:59 Intake Total 975 978 Balance 975 978 Intake: IV 975 978 Results Current Medications Generic Name Dose Route Start Last Admin Trade Name Freq PRN Reason Stop Dose Admin Acetaminophen 650 mg 02/11/23 17:57 Acetaminophen Tab 325 Mg Tab PO Q6HR PRN Mild Pain (Scale 1 to 3) Amiodarone HCl 200 mg 02/11/23 21:00 Amiodarone 200 Mg Tab PO HS [facility] Apixaban 5 mg 02/11/23 21:00 Apixaban 5 Mg Tab PO BID [facility] Protocol Estrogens Conjugated 0.625 mg 02/12/23 09:00 Estrogens, Conjugated 0.625 Mg Tab PO QAM [facility] Furosemide 40 mg 02/12/23 09:00 Furosemide 40 Mg Tab PO QAM [facility] Hydromorphone HCl 0.5 mg 02/11/23 07:00 Hydromorphone 0.5 Mg/0.5 Ml Syringe IVP 02/11/23 23:00 Q5M PRN Phase 1 or 2 - Pain Control Acetaminophen 1,000 mg/ IV 100 mls @ 400 mls/hr 02/11/23 17:57 Solution IVPB 02/11/23 18:11 ONCE ONE Meclizine HCl 25 mg 02/11/23 17:56 Meclizine 25 Mg Tab PO TID PRN [facility] Metoprolol Tartrate 25 mg 02/11/23 21:00 Metoprolol Tartrate 25 Mg Tab PO BID [facility] Midazolam HCl 2 mg 02/11/23 07:00 Midazolam 2 Mg/2 Ml Vial IV 02/11/23 23:00 ONCE PRN Pre-Op Anxiety Non-Formulary Medication 10 mg 02/12/23 09:00 Rosuvastatin Calcium [Crestor] PO QAM [facility] Non-Formulary Medication 400 mg 02/12/23 13:00 Magnesium [Magnesium] PO 1300 [facility] Sodium Chloride 12 ml 02/11/23 17:57 Sodium Chloride 0.9% Flush 10 Ml Syringe IV Q12HR PRN Line Flush Valsartan 40 mg 02/12/23 13:00 Valsartan 80 Mg Tab PO DAILY@1300 [facility] Intake and Output 02/11/23 02/11/23 02/11/23 06:59 14:59 22:59 Intake Total 975 978 Balance 975 978 Intake: IV 975 978
--- NOTE | 2023-02-11 18:16 | P.EPPROC ---
- EP Procedure Note Electrophysiology Procedure Note: PROCEDURE A. fib ablation DIAGNOSIS Persistent Atrial fibrillation, symptomatic, refractory to therapy, congestive heart failure RESULT No left atrial appendage mass seen on intracardiac echo Thickened pericardium with small basal effusion on intracardiac echo, severe LV dysfunction, very large left atrium Pulmonary venous isolation of left-sided pulmonary veins. Right-sided veins were completely isolated Left atrial roof line using cryoablation, sequential method Ablation of the lower posterior LA wall Linear ablation of the anterior wall Linear ablation in the left atrial drainage Linear ablation in the mitral isthmus between the mitral valve and the left inferior pulmonary vein No evidence for phrenic nerve injury Esophageal deflection YES Electrical cardioversion with a synchronized shock across the chest YES / NO PROCEDURE DETAILS Written informed consent prior to procedure. Patient brought to the EP lab. General anesthesia given. Heparin administered. A city maintained above 300 seconds Both groins prepped and draped per protocol and venous sheaths placed. Esophagus intubated, circa catheter for temperature monitoring an endoscope for possible esophageal deflection. Phrenic nerve monitoring performed. Esophageal temperature monitoring performed. Esophageal deflection performed if circa catheter overlapping with the balloon or circa temperature less than 27.5C Intracardiac echocardiography performed. Pericardium evaluated. Left atrial appendage evaluated. Left atrium evaluated along with pulmonary veins. Very large left atrium Transseptal catheterization performed under fluoroscopic guidance and intracardiac echo guidance Cryoablation sheath exchanged, balloon catheter along with achieve catheter placed in the left atrium. Pulmonary veins isolated in the following sequence: Left superior pulmonary vein followed by left inferior pulmonary vein, on their antral aspect Right-sided veins interrogated and were quiescent Phrenic nerve stimulation along with capture thresholds within the SVC and right superior pulmonary vein to identify the phrenic nerve proximity to the cryo- balloon. Pulmonary veins isolated and confirmed with entrance and exit block. Phrenic nerve integrity confirmed at the end of the procedure Ablation of the left atrial roof performed with sequential lesions from the left superior to the right superior pulmonary veins. Ablation of the electrograms confirmed Ablation of the left atrial posterior wall performed with cannulation of the superior branch of the right inferior or the inferior branch of the right superior vein to achieve ablation of the posterior septum of the left atrium. Ablation of electrograms confirmed Following ablation of the left atrial roof and ablation of the posterior wall there is organization of atrial fibrillation Voltage mapping of the left atrium performed thereafter RF ablation of the anterior wall from the right superior pulmonary vein roof to the mitral annulus, along areas of low voltage Linear ablation along the left atrial ridge, anterior to the left-sided veins line linear ablation in the mitral isthmus from the left inferior pulmonary vein to the mitral annulus. However despite several RF lines as described above atrial fibrillation persisted Electrical cardioversion performed for persistence of atrial fibrillation despite successful ablation. Diagnostic catheters for the high right atrium, His bundle, coronary sinus placed. LA and RA pressures recorded RA pressure: 1812 LA pressure: 2416 Diagnostic EP study with coronary sinus pacing and recording Baseline measurements: AH 54 and HV 39 ms Sinus cycle length 1311 ms, [place] interval 133 ms and QRS 101 ms Venous sheaths were removed and hemostasis assured with a closure device. Patient extubated and transferred to recovery PROCEDURES PERFORMED Diagnostic EP study CS pacing and recording Left and right transseptal catheterization 3-D mapping of the tachycardia Intracardiac echocardiography Pulmonary vein isolation with transseptal and comprehensive EPS, 29834 Left atrial roof line, +[id number], using cryoablation Ablation of discrete repair focus, [id number] Linear ablation, left atrium, +36538 using RF Linear ablation left atrium, using RF Linear ablation left atrium, using RF Electrical cardioversion with a synchronized shock across the chest [id number]
--- NOTE | 2023-02-11 18:21 | P.PRLE ---
RE: Kathryn Fuentes This edema Kathryn Fuentes underwent redo A. fib ablation She had undergone pulmonary vein isolation in 2020. She had recurrence of atrial fibrillation despite quiescent pulmonary veins She underwent extensive ablation of the left atrial roof, posterior wall, anterior mitral wall, left atrium ridge and mitral isthmus There was also isolation of atrial fibrillation but without termination. Therefore she underwent electrical cardioversion at the end of the procedure She has a very dilated left atrium Severe LV dysfunction on intracardiac echo Evidence of thickened pericardium with a small exudative effusion of the base of the LV Currently she is on oral amiodarone and hopefully she will maintain sinus rhythm with a combination of amiodarone and linear ablation of the left atrium However if she has recurrence of atrial fibrillation in the considerations would include #1 ICD implantation with conduction system pacing followed by AV node modification #2 discontinuation of oral amiodarone followed by a 3 month. Also amiodarone completely before considering other antiarrhythmic drugs, to avoid serious drug interactions with amiodarone She will continue ELIQUIS since she's had a history of CVA and has a high MACARENA VASC or Thank you for entrusting me with the care of the patient Warm regards Sincerely Amrik Gomez
[2023-02-11] MEDS: ACETAMINOPHEN TAB 325 MG TAB PO PRN (20:20)
[2023-02-11] MEDS: APIXABAN 5 MG TAB PO SCH (20:21)
[2023-02-11] MEDS: AMIODARONE 200 MG TAB PO SCH (20:21)
[2023-02-11] MEDS: METOPROLOL TARTRATE 25 MG TAB PO SCH (20:21)
[2023-02-12] MEDS: ESTROGENS, CONJUGATED 0.625 MG TAB PO SCH (09:16)
[2023-02-12] MEDS: METOPROLOL TARTRATE 25 MG TAB PO SCH ×2 (09:17→20:11)
[2023-02-12] MEDS: ATORVASTATIN 20 MG TAB PO SCH ×2 (09:17→19:29)
[2023-02-12] MEDS: APIXABAN 5 MG TAB PO SCH ×2 (09:17→20:10)
[2023-02-12] MEDS: FUROSEMIDE 40 MG TAB PO SCH (09:17)
--- NOTE | 2023-02-12 10:50 | P.PN ---
Subjective HISTORY OF PRESENT ILLNESS: This is 67-year-old female who underwent A. fib ablation yesterday with Dr. Gomez. Patient is doing well this morning. She denies chest pain or pressure. She reports mild shortness of breath. Vital signs are stable. PHYSICAL EXAM: VITAL SIGNS: Reviewed. GENERAL: Well-developed in no acute distress. NECK: Supple. No JVD or thyromegaly LUNGS: Respirations even and unlabored. Lungs essentially clear to auscultation bilaterally. HEART: Regular rate and rhythm. S1 and S2 heard. EXTREMITIES: Normal range of motion. No clubbing or cyanosis. Peripheral pulses intact. No lower extremity edema ASSESSMENT: Persistent atrial fibrillation, status post A. fib ablation Nicotine dependence PLAN: Dr. Gomez would like to keep patient for an additional 24 hours. Nursing was instructed to remove flow stasis device tomorrow morning. If patient remains stable she will be discharged home in a.m. Nurse practitioner note has been reviewed by physician. Signing provider agrees with the documented findings, assessment, and plan of care. Objective - Vital Signs Vital signs: Vital Signs Temp 98.2 F 02/12/23 07:00 Pulse 84 02/12/23 07:00 Resp 16 02/12/23 07:00 BP 134/86 02/12/23 07:00 Pulse Ox 98 02/12/23 07:00 FiO2 Intake & Output 02/11/23 02/12/23 02/12/23 18:59 06:59 18:59 Intake Total 2153 200 Output Total 1225 Balance 2153 -1025 Weight 63.503 kg Intake: IV 2153 Oral 200 Output: Urine 1225 Other: # Bowel Movements 0
[2023-02-12] MEDS: VALSARTAN 40 MG TAB PO SCH (12:48)
[2023-02-12] MEDS: MAGNESIUM OXIDE 400 MG TAB PO SCH (12:48)
[2023-02-12] MEDS: ACETAMINOPHEN TAB 325 MG TAB PO PRN (16:56)
[2023-02-12] MEDS: AMIODARONE 200 MG TAB PO SCH (20:11)
[2023-02-13] MEDS: APIXABAN 5 MG TAB PO SCH (09:37)
[2023-02-13] MEDS: ESTROGENS, CONJUGATED 0.625 MG TAB PO SCH (09:38)
[2023-02-13] MEDS: ATORVASTATIN 20 MG TAB PO SCH (09:38)
[2023-02-13] MEDS: FUROSEMIDE 40 MG TAB PO SCH (09:38)
[2023-02-13] MEDS: METOPROLOL TARTRATE 25 MG TAB PO SCH (09:38)
[2023-02-13] MEDS: VALSARTAN 40 MG TAB PO SCH (12:40)
[2023-02-13] MEDS: MAGNESIUM OXIDE 400 MG TAB PO SCH (12:40)
[2023-02-13 15:25] VITALS: BP 114/75; PULSE 90; RESP 18; TEMP 97.7
== END 2023-02-13 15:25 | disposition home or self-care (01) ==
LOC: CATHEP 10:59 → 6NMEDSUR 17:15 → CATHEP 17:15 → 6NMEDSUR 17:28
PROVIDERS: ADMIT Internal Medicine Clinical Cardiac Electrophysiology; ATTEND Internal Medicine Clinical Cardiac Electrophysiology
DX: I48.19 Other persistent atrial fibrillation (principal); I11.0 Hypertensive heart disease with heart failure; I50.9 Heart failure, unspecified; I42.9 Cardiomyopathy, unspecified; I25.10 Atherosclerotic heart disease of native coronary artery without angina pectoris; I08.3 Combined rheumatic disorders of mitral, aortic and tricuspid valves; J44.9 Chronic obstructive pulmonary disease, unspecified; E78.5 Hyperlipidemia, unspecified; K21.9 Gastro-esophageal reflux disease without esophagitis; M19.90 Unspecified osteoarthritis, unspecified site; F17.200 Nicotine dependence, unspecified, uncomplicated; Z79.01 Long term (current) use of anticoagulants; Z79.899 Other long term (current) drug therapy; Z90.49 Acquired absence of other specified parts of digestive tract; Z90.710 Acquired absence of both cervix and uterus; Z98.1 Arthrodesis status; Z98.890 Other specified postprocedural states; Z86.73 Personal history of transient ischemic attack (TIA), and cerebral infarction without residual deficits; Z82.49 Family history of ischemic heart disease and other diseases of the circulatory system; Z83.49 Family history of other endocrine, nutritional and metabolic diseases
CPT/HCPCS: 93656; 93657; 86900; 86901; 86850; G0378 ×2; C1894 ×3; C1769 ×3; C1760; C1766 ×2; C1730 ×2; C1731; C1759; C1893; C1733; C1732; J2250; J0330; J2720; J1644 ×3; J1100; J1940; J2710; J2405; J2001; J3010; J2704; Q9967; J2371; 93662

== ENCOUNTER 2023-06-14 05:48 | Day surgery (SDC) | payer BC, MEDICARE ==
[2023-06-14] MEDS ORDERED: HEPARIN SODIUM,PORCINE (1 ML) 2,500 UNIT in SODIUM CHLORIDE 0.9% 250 ML IRRIGATION PRN (05:49)
[2023-06-14] MEDS ORDERED: ASPIRIN 325 MG TAB PO STA (05:49)
[2023-06-14] MEDS ORDERED: ATORVASTATIN 80 MG TAB PO STA (05:49)
[2023-06-14] MEDS ORDERED: HEPARIN SODIUM,PORCINE 10,000 UNIT in SODIUM CHLORIDE 0.9% 1,000 ML IRRIGATION PRN (05:49)
[2023-06-14] MEDS ORDERED: ALPRAZolam 0.25 MG TAB PO PRN (05:49)
[2023-06-14] MEDS ORDERED: NITROGLYCERIN SL TABS 0.4 MG TAB SUBLINGUAL PRN (05:49)
[2023-06-14] MEDS ORDERED: ALPRAZolam 0.5 MG TAB PO PRN (05:49)
[2023-06-14] MEDS: SODIUM CHLORIDE 0.9% 1,000 ML IV ONE ×2 (06:33→11:05)
[2023-06-14 06:34] VITALS: RESP 18; TEMP 97.7
[2023-06-14 06:40] LABS: Glucose,Whole Blood 104 mg/dL (70-110)
[2023-06-14] MEDS: IV FLUID CONTINUATION 1,000 ML IV ONE (07:15)
[2023-06-14] MEDS: BENZOCAINE SPRAY 1 CAN TOPICAL ONE (07:22)
[2023-06-14] MEDS ORDERED: fentaNYL (PF) 50 MCG/ML 2 ML AMP ONE (07:22)
[2023-06-14] MEDS ORDERED: VERAPAMIL 2.5 MG/ML 2 ML AMP ONE (07:23)
[2023-06-14] MEDS ORDERED: LIDOCAINE 1% INJ 10MG/ML (20 ML MDV) ONE (07:23)
[2023-06-14] MEDS: MIDAZOLAM 2 MG/2 ML VIAL IVP ONE ×3 (07:26→07:30)
[2023-06-14] MEDS: fentaNYL (PF) 50 MCG/1 ML VIAL IVP ONE (07:30)
--- NOTE | 2023-06-14 07:44 | P.PCN ---
Date of Procedure: 06/14/23 Description of Procedure: Indication: Mitral regurgitation Procedure Description: After explaining the procedure to the patient, it's risk and complications, blood pressure, heart rate and O2 saturation were monitored. The throat was sprayed with Cetacaine. Patient received 3 mg intravenous Versed, 50 mcg intravenous fentanyl. The probe was introduced into the esophagus without difficulty. Images were obtained. Following that, the probe was removed. There was no immediate complication. Findings: Left atrial size is dilated, left atrial appendage is normal. Chiari network was noted in the right atrium. The ventricle systolic function is mildly impaired, ejection fraction 40 to 45% with global hypokinesis. The mitral valve leaflets are thickened with evidence of mild prolapse of the posterior mitral valve leaflet. Tricuspid valve is normal. The aortic valve revealed mild fibrocalcific changes with preserved opening. Descending thoracic aorta is normal. No pericardial effusion was noted. Contrast bubble study revealed no shunting across the interatrial septum with Valsalva maneuver. Doppler: Pulse wave and color Doppler were obtained, and revealed moderate tricuspid and mild aortic regurgitation. There was moderate to severe mitral regurgitation with multiple jets. Evidence of [id number] shunting through ASD was noted. Conclusion: 1. Dilated left atrium with normal appearance of the left atrial appendage 2. Moderate global hypokinesis of the left ventricle 3. Moderate severe mitral regurgitation with multiple jets and mild prolapse of the posterior mitral valve leaflets 4. Moderate tricuspid regurgitation with mild to moderate pulmonary hypertension 5. Mild aortic regurgitation 6. Evidence of [id number] shunting through ASD
[2023-06-14] MEDS: LIDOCAINE 1% INJ 10MG/ML (5 ML VIAL-PF) SQ ONE (07:57)
[2023-06-14] MEDS: VERAPAMIL SYRINGE (5 MG/10 ML) INTRAARTER ONE (08:00)
[2023-06-14] MEDS ORDERED: HEPARIN SODIUM 1,000 UN/ML (10ML VL) ONE (08:16)
[2023-06-14] MEDS: HEPARIN SODIUM 1,000 UN/ML (10ML VL) IV ONE (08:17)
[2023-06-14 08:23] LABS: O2 Sat Blood Gas 71.1 %
[2023-06-14 08:25] LABS: O2 Sat Blood Gas 89.9 %
[2023-06-14 08:26] LABS: O2 Sat Blood Gas 73.2 %
[2023-06-14] MEDS: IOPAMIDOL-370 100ML BTL INJ ONE (08:26)
[2023-06-14] MEDS ORDERED: RX INFO: IV CONTRAST WAS GIVEN 1 EACH MISC MISCELLANE PRN (08:39)
[2023-06-14] MEDS ORDERED: SODIUM CHLORIDE 0.9% 1,000 ML IV SCH (08:45)
--- NOTE | 2023-06-14 08:48 | P.CARDCATH ---
Date of Procedure: 06/14/23 Description of Procedure: Cardiac Catheterization: The patient is a 68-year-old female with known history of hypertension, hyperlipidemia, chronic tobacco use and mitral regurgitation who has been complaining of progressive weakness and dyspnea. Her transthoracic echocardiogram showed progression of her mitral regurgitation. Recommendations were made regarding cardiac catheterization, the risks and the complications were discussed with the patient who is in full understanding and agreement. Procedure Description: Patient was brought to senior laboratory technician in fasting semi-sedated state after receiving Fentanyl and Benadryl achieiving moderate conscious sedated state. Using Xylocaine Anesthesia and modified Seldinger technique, a 6-[place] sheath was introduced in the right radial artery . The intravenous catheter in the right basilic vein was exchanged to a 6 [place] sheath. Right heart catheterization w as performed using the Reader-Marcela catheter, multiple pressure and samples were obtained. Cardiac output by thermodilution was calculated. Subsequently, selective coronary angiography was performed using a 5-[place] 3.5 bend Giovanni catheter. Multiple views of the coronary artery including hemiaxial views were obtained. The 5 [place] pigtail catheter was used to cross the aortic valve and LVEDP was calculated. An PRO left ventriculogram was performed. Following that, catheter and sheath were removed. Hemostasis was obtained with deployment of vascular band . There was no immediate complication. Patient was returned to room in stable condition. Of note, the patient received a total of 3500 units of intravenous heparin as well as intra-arterial verapamil. Findings: Left main: This is a large size vessel, aneurysmal at the distal end, bifurcating into LAD and left circumflex, left main has no obstructive disease LAD: This is a large size vessel, reaching to the apex, giving rise to a large proximal diagonal branch, the LAD and its branches have no obstructive disease Left circumflex: This is a large nondominant vessel giving rise to 2 obtuse marginal branch, the first 1 is very proximal. The left circumflex and its branches have no obstructive disease RCA: This is a dominant vessel, large in caliber, bifurcating into PDA and PLV. The right coronary artery has no obstructive disease. Left Ventriculogram: Was performed in the PRO view and revealed mild global hypokinesis, ejection fraction 40 to 45%. There was 2-3+ mitral regurgitation Hemodynamics: Pulmonary artery systolic 38 diastolic 16 with a mean of 26 mmHg, pulmonary capillary wedge pressure A-wave of 9 V wave of 12 with a mean of 10 mmHg, right ventricle systolic pressure of 40 with end-diastolic of 10 mmHg, r ight atrium A wave of 8 V wave of 6 with a mean of 4 mmHg. There was no gradient across the aortic valve, cardiac output by thermodilution 5.3 L/min. Pulmonary artery saturation 71% right atrium 73% arterial 90%. Cardiac output by Pavan 7.3 L/min., LVEDP was 14-16 mmHg Conclusion: 1. No evidence of significant obstructive disease 2. Mild to moderate impairment in the left ventricular systolic function with 2-3+ mitral regurgitation 3. Mild pulmonary hypertension Recommendations: The patient will continue on her present medical regimen with continuing aggressive coronary risks modification and smoking cessation. The mitral valve disease does not appear to be surgical so far. The findings and the recommendations were discussed with the patient and the family and they were in full understanding and agreement. Duration of sedation is 34 minutes.
[2023-06-14] MEDS ORDERED: NON FORMULARY DRUG (Rosuvastatin 20 MG Tablet) PO SCH (09:00)
[2023-06-14] MEDS ORDERED: METOPROLOL TARTRATE 25 MG TAB PO SCH (09:00)
[2023-06-14 12:35] VITALS: BP 162/71; PULSE 64
[2023-06-14] MEDS ORDERED: DAPAGLIFLOZIN PROPANEDIOL 10 MG TABLET PO SCH (14:00)
[2023-06-14] MEDS ORDERED: AMIODARONE 200 MG TAB PO SCH (21:00)
== END 2023-06-14 12:29 | disposition home or self-care (01) ==
LOC: CATHCVL 05:48
PROVIDERS: ATTEND Internal Medicine Interventional Cardiology
DX: I08.1 Rheumatic disorders of both mitral and tricuspid valves (principal); I27.20 Pulmonary hypertension, unspecified; I25.10 Atherosclerotic heart disease of native coronary artery without angina pectoris; I10 Essential (primary) hypertension; I48.11 Longstanding persistent atrial fibrillation; E78.2 Mixed hyperlipidemia; F17.210 Nicotine dependence, cigarettes, uncomplicated; Z86.73 Personal history of transient ischemic attack (TIA), and cerebral infarction without residual deficits; Z79.01 Long term (current) use of anticoagulants; Z79.899 Other long term (current) drug therapy
CPT/HCPCS: 93312; 93320; 93325; 93460; 85018; 82810; 99152; 99153; C1769 ×2; C1894; C1751; J2250; J2001; J1644; Q9967; J3010

== ENCOUNTER → 2024-03-31 | Outpatient (CLI) | payer BC, MEDICARE ==
--- NOTE | 2024-03-31 15:41 | MR ---
EXAMINATION TYPE: MR brain/cspine wo/w DATE OF EXAM: 03/31/2024 2:55 PM COMPARISON: MRI brain 03/27/2019 CLINICAL INDICATION: Female, 69 years old with history of G46.3 BRAIN STEM STROKE SYNDROME M48.02, Di cecey spells and black outs x1 year, Hx neck fusion, Hx Meningiomas removed 2002 and 2003 TECHNIQUE: Multiplanar, multisequence images of the brain were obtained before and after administrati on of 6 mL intravenous Gadobutrol gadolinium contrast. Diffusion-weighted imaging. Additional multip lanar, multisequence images of the cervical spine before and after IV contrast. FINDINGS: BRAIN: There is a moderate joint effusion associated with multiple bilateral homogeneously enhancing extra-a xial lesions compatible with meningiomas. There is previous resection cavity posterior inferior right cerebellum as well as superior right frontal convexity. Largest meningioma is noted left lateral posterior cranial fossa measuring 1.9 cm, versus 1 cm, previ ously. Along the right leaf of the tentorium cerebelli measuring 2.1 cm, versus 1.8 cm, previously. Along the right lateral convexity measuring up to 1.1 cm. Posterior left parafalcine 1.7 cm versus 1.5 cm, previously. Left lateral convexity measuring 1.2 cm. Anterior falcine measuring 1.4 cm. Anterior right frontal convexity underlying the resection cavity measuring 9 mm. Numerous additional meningiomas are present. Additional comparison is limited due to lack of contrast on the patient's prior exam. T2/FLAIR weighted sequences show mild to moderate scattered bright signal foci in the subcortical and deep white matter regions of both cerebral hemispheres and more extensive within the bilateral everett edian romana. No hydrocephalus, midline shift, suspicious restricted diffusion, or herniation. Trace mucosal thickening ethmoid air cells. Globes are intact. CERVICAL SPINE: No greatest cervical junction abnormality, predental space widening, or prevertebral soft tissue swel ling. ACDF is noted extending from C3 through C7 levels. There is some residual posterior osteophytic ridging such as at C6 which impresses on the ventral the kaylee sac but without significant spinal canal stenosis. Normal course, caliber, and signal intensity of the cervical spinal cord. Scattered mild to moderate facet arthropathy. Changes result in variable mild neuroforaminal narrowin g such as on both sides at C6/C7 and on the right at C3-C4. No abnormal enhancement within the spinal canal. COMBINED IMPRESSION: BRAIN: 1. NUMEROUS BILATERAL ENHANCING MENINGIOMAS, LARGEST MEASURING 2.1 CM. Most of these were difficult t o appreciate on patient's prior study due to lack of IV contrast previously. They're much better seen now and can be followed on subsequent studies with contrast administration. The dominant meningiomas appear to show slight increasing size of a few millimeters. The largest change is in the left latera l posterior cranial fossa currently 1.9 cm versus 1.0 cm, previously. 2. Previous resection cavities superior right frontal convexity and posterior inferior right cerebell um. 3. Mild to moderate burden of chronic small vessel ischemic disease. No acute intracranial abnormalit y seen. CERVICAL SPINE: 4. Status post C3-C7 ACDF. No spinal canal stenosis. 5. Scattered mild to moderate facet arthropathy. 6. Changes result in variable mild neuroforaminal narrowing such as on the right at C3-C4 and on both sides at C6/C7. [facility], , 03/31/2024 3:38 PM
== END | disposition home or self-care (01) ==
LOC: RADMRIMAIN 13:16
PROVIDERS: ATTEND Psychiatry & Neurology Neurology
DX: G46.3 Brain stem stroke syndrome (principal); M48.02 Spinal stenosis, cervical region; M47.819 Spondylosis without myelopathy or radiculopathy, site unspecified; I67.82 Cerebral ischemia; J34.89 Other specified disorders of nose and nasal sinuses; Z98.1 Arthrodesis status
CPT/HCPCS: 70553; 72156; A9585

== ENCOUNTER → 2024-06-02 | Outpatient (CLI) | payer BC, MEDICARE ==
--- NOTE | 2024-06-06 10:34 | MM ---
Reason for Exam: Screening (asymptomatic). Last mammogram was performed 1 year(s) and 4 month(s) ago. Patient History: Menarche at age 13. First Full-Term at age 20. Left ovary removed at age 23. Right ovary removed at age 23. Hysterectomy at age 23. Postmenopausal. Currently using Estrogen, starting at age 23. Risk Values: Yoana 5 year model risk: 1.2%. NCI Lifetime model risk: 4.0%. Prior Study Comparison: 05/23/2021 Bilateral Diagnostic Mammogram, [facility]. 09/01/2021 Bilateral Diagnostic Mammogram, [facility]. 12/31/2022 Bilateral Screening Mammogram, [facility]. 01/11/2023 Right Diagnostic Mammogram, [facility]. Tissue Density: The breasts are heterogeneously dense, which may obscure small masses. Findings: Analyzed By CAD. There are few small round benign-appearing calcifications in the right breast redemonstrated. Stable oval circumscribed 7 mm mass in the posterior left breast. There is no suspicious group of microcalcifications or new suspicious mass in either breast. Overall Assessment: Benign, BI-RAD 2 Management: Screening Mammogram of both breasts in 1 year. . Patient should continue monthly self-breast exams. A clinical breast exam by your physician is recommended on an annual basis. This exam should not preclude additional follow-up of suspicious palpable abnormalities. Note on Yoana scores and lifetime risk: 1. A Yoana score greater than 3% is considered moderate risk. If this is the case, consider specialist referral to assess eligibility for a risk reducing agent. 2. If overall lifetime risk for the development of breast cancer is 20% or higher, the patient may qualify for future screening with alternating mammogram and breast MRI. [facility], , 06/06/2024 10:30 AM. Electronically signed and approved by: Ajith Pino M.D.
== END | disposition home or self-care (01) ==
LOC: RADMAMWWP 11:02
PROVIDERS: ATTEND Internal Medicine
DX: Z12.31 Encounter for screening mammogram for malignant neoplasm of breast (principal); R92.333 Mammographic heterogeneous density, bilateral breasts; Z90.722 Acquired absence of ovaries, bilateral; Z78.0 Asymptomatic menopausal state
CPT/HCPCS: 77063; 77067

== ENCOUNTER 2024-10-24 06:00 | Day surgery (SDC) | payer BC, MEDICARE ==
[~2024-10-24 06:00] MED LIST changes: -HYDROmorphone 0.5 MG/0.5 ML SYRINGE IVP PRN; -LACTATED RINGERS 1,000 ML IV SCH; -MIDAZOLAM 2 MG/2 ML VIAL IV PRN
[2024-10-24 06:30] VITALS: TEMP 97.5
[2024-10-24] MEDS: SODIUM CHLORIDE 0.9% 500 ML 500 ML IV ONE (06:43)
[2024-10-24] MEDS ORDERED: PROPOFOL 10 MG/ML 20 ML VIAL IV ONE (07:11)
[2024-10-24] MEDS ORDERED: LIDOCAINE 1% INJ 10MG/ML (20 ML MDV) ONE (07:11)
[2024-10-24] MEDS: BENZOCAINE SPRAY 1 EACH MUCOUS MEM PRN (07:19)
[2024-10-24 07:25] LABS: African American GFR (CKD) 72 (>60 ml/min/1.73 sqM); Anion Gap 7 mmol/L; Blood Urea Nitrogen 21 mg/dL (7-17); Calcium 8.7 mg/dL (8.4-10.2); Carbon Dioxide 23 mmol/L (22-30); Chloride 106 mmol/L (98-107); Glucose 115 mg/dL (74-99); Non-African American GFR(CKD) 63 (>60 ml/min/1.73 sqM); Potassium 3.9 mmol/L (3.5-5.1); Sodium 136 mmol/L (137-145)
--- NOTE | 2024-10-24 07:42 | P.PCN ---
Date of Procedure: 10/24/24 Description of Procedure: Indication: Atrial fibrillation Procedure Description: After explaining the procedure to the patient, it's risk and complications, blood pressure, heart rate and O2 saturation were monitored. The throat was sprayed with Cetacaine. Patient received sedation per anesthesia department. The probe was introduced into the esophagus without difficulty. Images were obtained. Following that, the probe was removed. There was no immediate complication. Findings: Biatrial enlargement was noted. Left atrial appendage appears to be normal. Low ventricle systolic function is mildly impaired with an ejection fraction of 35 to 40% with global hypokinesis. The aortic valve revealed fibrocalcific changes with preserved opening. Thickening of the mitral valve leaflets with prolapse of the posterior mitral valve leaflet was noted. Tricuspid valve appears to be normal. Descending thoracic aorta appears to be normal. No pericardial effusion was noted. Contrast bubble study revealed right to left shunting. Doppler: Pulse wave and color Doppler were obtained, and revealed moderate mitral and tricuspid regurgitation with mild aortic regurgitation. There was [id number] shunting by color Doppler study across an ASD. Conclusion: 1. Biatrial enlargement with normal appearance of the left atrial appendage 2. Moderate global hypokinesis of the left ventricle 3. Moderate mitral and tricuspid regurgitation with mitral valve prolapse 4. Mild aortic regurgitation 5. Bidirectional shunt across an ASD Cardioversion: After obtaining CLEO and sedated state per anesthesia department a synchronized biphasic cardioversion using 150 J was performed with rastafari of sinus mechanism. There was no immediate complications.
[2024-10-24 08:53] VITALS: RESP 14
[2024-10-24] MEDS ORDERED: APIXABAN 5 MG TAB PO SCH (09:00)
[2024-10-24] MEDS ORDERED: METOPROLOL TARTRATE 25 MG TAB PO SCH (09:00)
[2024-10-24] MEDS ORDERED: NON FORMULARY DRUG (Rosuvastatin 20 MG Tablet) PO SCH (09:00)
[2024-10-24 09:07] VITALS: BP 129/65; PULSE 66
[2024-10-24] MEDS ORDERED: AMIODARONE 200 MG TAB PO SCH (21:00)
== END 2024-10-24 09:31 | disposition home or self-care (01) ==
LOC: OR 06:00
PROVIDERS: ATTEND Internal Medicine Interventional Cardiology
DX: I08.3 Combined rheumatic disorders of mitral, aortic and tricuspid valves (principal); I48.91 Unspecified atrial fibrillation; I25.10 Atherosclerotic heart disease of native coronary artery without angina pectoris; I10 Essential (primary) hypertension; E78.5 Hyperlipidemia, unspecified; I42.0 Dilated cardiomyopathy; Z86.73 Personal history of transient ischemic attack (TIA), and cerebral infarction without residual deficits; Z87.891 Personal history of nicotine dependence; Z79.01 Long term (current) use of anticoagulants; Z79.899 Other long term (current) drug therapy
CPT/HCPCS: 93312; 93320; 93325; 92960; 80048; J2003; J2704